=== PATIENT | female | born 1965 | race Caucasian/White ===

== ENCOUNTER 2016-11-27 18:34 | Inpatient (IN) | payer MEDICARE ==
[2016-11-27] MEDS ORDERED: DUONEB 0.5-3 MG/3 ml Neb IH ONE ×3 (18:46→22:42)
--- NOTE | 2016-11-27 18:53 | ERPHSYRPT ---
- History of Present Illness Source: patient, EMS Exam Limitations: clinical condition Patient Subjective Stated Complaint: pt co increase sob for about a week, with cought, is on home o2 at 2l nc, uses nebulizer at home. Triage Nursing Assessment: coughing up thick white sputum. no fever,wheezes throughtout Timing/Duration: week(s) (1) Activities at Onset: rest Severity of Dyspnea-Max: severe Severity of Dyspnea-Current: severe Possible Cause: frequent episodes Modifying Factors: Improves With: activity Associated Symptoms: productive cough International travel in last 2 weeks: No Hx Tetanus, Diphtheria Vaccination/Date Given: Yes Hx Influenza Vaccination/Date Given: Yes Hx Pneumococcal Vaccination/Date Given: Yes Immunizations Up to Date: Yes <MARIOLA GALINDO - Last Filed: 11/27/16 18:48> <ANTOINE TEMPLE - Last Filed: 11/27/16 20:19> - History of Present Illness Time Seen by Provider: 11/27/16 18:35 Physician History: She smokes heavily and states she will quit now. No change or missed meds. Not out of her O2 source. (MARIOLA GALINDO) Allergies/Adverse Reactions: morphine Allergy (Intermediate, Verified 11/27/16 18:41) Hives tramadol Allergy (Verified 11/27/16 18:41) Home Medications: Bupropion HCl [Bupropion HCl Sr] 150 mg PO DAILY 02/01/16 [History] Levetiracetam 500 mg PO BID 02/01/16 [History] Levothyroxine Sodium 25 Mcg [Synthroid 25 Mcg] 25 mcg PO DAILY 02/01/16 [ History] Naproxen 500 mg PO BID 02/01/16 [History] Omeprazole 40 mg PO TID 02/01/16 [History] Alprazolam 1 mg [Xanax 1 mg] 1 mg PO Q6HPRN PRN 02/09/16 [History] Albuterol 2.5 mg/3 ml Neb [Proventil 2.5 mg/3 ml Neb] 1 neb IH Q4H [History] Albuterol 8 gm Mdi Hfa [Ventolin Hfa MDI] 2 puffs IH Q4HPRN PRN 07/06/16 [ History] Alprazolam 1 mg [Xanax 1 mg] 2 mg PO HS 07/06/16 [History] - Review of Systems Constitutional: No Symptoms Eyes: No Symptoms Ears, Nose, & Throat: No Symptoms Respiratory: Cough, Dyspnea, Dyspnea on Exertion ([place]), Wheezing Cardiac: No Symptoms Abdominal/Gastrointestinal: No Symptoms Musculoskeletal: No Symptoms Skin: No Symptoms Neurological: No Symptoms Psychological: No Symptoms Endocrine: No Symptoms Hematologic/Lymphatic: No Symptoms Immunological/Allergic: No Symptoms <GALINDOMARIOLA DONELL - Last Filed: 11/27/16 18:48> - Past Medical History Pertinent Past Medical History: Yes Neurological History: Seizures ENT History: No Pertinent History Cardiac History: High Cholesterol Respiratory History: Bronchitis, COPD Endocrine Medical History: No Pertinent History Musculoskeletal History: Arthritis GI Medical History: Gallbladder Disease, Hemorrhoids History: No Pertinent History Psycho-Social History: Anxiety, Depression, Panic Disorder Female Reproductive Disorders: Cervical Cancer, Vaginal Cancer Other Medical History: test + for tb on skin test chest xray are neg.manic depression - Past Surgical History Past Surgical History: Yes Neuro Surgical History: No Pertinent History Cardiac: No Pertinent History Respiratory: No Pertinent History Gastrointestinal: Cholecystectomy Genitourinary: No Pertinent History Musculoskeletal: Orthopedic Surgery Female Surgical History: Hysterectomy, Other Other Surgical History: partial vulvectomy, dand c's , rt hand surgery, epidural for back paincerviacl cancer-removed around cervix,rt knee surgery - Social History Smoking Status: Current every day smoker How long have you smoked: 30 years Exposure to second hand smoke: Yes Drug Use: none Patient Lives Alone: Yes - Female History Hx Last Menstrual Period: hyster <MARIOLA GALINDO - Last Filed: 11/27/16 18:48> - Physical Exam General Appearance: moderate distress, anxiety Eye Exam: PERRL/EOMI, eyes nml inspection Ears, Nose, Throat Exam: normal ENT inspection, normal pharynx Neck Exam: normal inspection, non-tender, supple, full range of motion Respiratory Exam: respiratory distress, airway intact, accessory muscle use, prolonged expirations, wheezing (expiratory throughout) Cardiovascular/Chest Exam: normal heart sounds, regular rate/rhythm, normal peripheral pulses Abdominal/Gastrointestinal Exam: soft, normal bowel sounds Extremity Exam: non-tender, normal range of motion, normal inspection Neurologic Exam: alert, oriented x 3, cooperative Skin Exam: warm, dry, cyanosis (mild dusky appearance) SpO2 Interpretation: hypoxic SpO2: 96 Oxygen Delivery: Nasal Cannula (2 lpm) <MARIOLA GALINDO - Last Filed: 11/27/16 18:48> - Course Nursing assessment & vital signs reviewed: Yes <MARIOLA GALINDO - Last Filed: 11/27/16 18:48> - Course EKG Interpreted by Me: RATE (81), Sinus Rhythm, Left Waldo Deviation, Non- specific ST Changes, Other (RVH) - Radiology Exams cxr X-ray Interpretation: Reviewed by me (COPD, ), No Pneumonia, No Pneumothorax <ANTOINE TEMPLE - Last Filed: 11/27/16 20:19> Ordered Tests: Active Orders 24 hr Category Date Time Status Clean Catch Urine Specimen STAT Care 11/27/16 18:46 Active EKG-ER Only STAT Care 11/27/16 18:46 Active IV Insertion STAT Care 11/27/16 18:46 Active Oxygen-ED Only NASAL CANNULA 2 lpm Care 11/27/16 18:46 Active Pulse Oximetry (ED) STAT Care 11/27/16 18:46 Active CHEST 1 VIEW (PORTABLE) Stat Exams 11/27/16 18:46 Taken ARTERIAL BLOOD GASES Urgent Lab 11/27/16 19:10 Completed BLOOD CULTURE Stat Lab 11/27/16 19:10 Received CBC W DIFF Stat Lab 11/27/16 19:10 Completed CMP Stat Lab 11/27/16 19:10 Completed Lactic Acid Urgent Lab 11/27/16 19:45 Completed Manual Differential NC Stat Lab 11/27/16 19:10 Completed NT PRO BNP Stat Lab 11/27/16 19:10 Completed TROPONIN Stat Lab 11/27/16 19:10 Completed UA Stat Lab 11/27/16 18:46 Ordered Respiratory Nebulizer STAT RT 11/27/16 18:48 Completed Respiratory Nebulizer STAT RT 11/27/16 19:46 Completed Medication Summary Generic Name Dose Route Start Last Admin Trade Name Freq PRN Reason Stop Dose Admin Azithromycin 250 mls @ 125 mls/hr 11/27/16 19:45 11/27/16 20:01 Zithromax 500 Mg/ 250 Ml Nacl Premix IV 11/27/16 21:44 125 mls/hr STAT ONE Administration Discontinued Medications Generic Name Dose Route Start Last Admin Trade Name Ute SAUCEDON Reason Stop Dose Admin Albuterol Sulfate 2.5 mg 11/27/16 19:45 11/27/16 20:04 Proventil 2.5 Mg/3 Ml Neb IH 11/27/16 19:46 2.5 mg STAT ONE Administration Albuterol Sulfate Confirm 11/27/16 19:55 Proventil 2.5 Mg/3 Ml Neb Administered 11/27/16 19:56 Dose 2.5 mg IH .STK-MED ONE Albuterol/Ipratropium 3 ml 11/27/16 18:46 11/27/16 19:01 Duoneb 0.5-3 Mg/3 Ml Neb IH 11/27/16 18:47 3 ml STAT ONE Administration Albuterol/Ipratropium Confirm 11/27/16 19:00 Duoneb 0.5-3 Mg/3 Ml Neb Administered 11/27/16 19:01 Dose 3 ml IH .STK-MED ONE Hydroxyzine HCl 25 mg 11/27/16 19:45 11/27/16 20:00 Atarax 25 Mg PO 11/27/16 19:46 25 mg STAT ONE Administration Hydroxyzine HCl Confirm 11/27/16 19:49 Atarax 25 Mg Administered 11/27/16 19:50 Dose 25 mg .ROUTE .STK-MED ONE Ceftriaxone Sodium/Dextrose 50 mls @ 100 mls/hr 11/27/16 19:45 11/27/16 20:01 Rocephin 1 Gm-D5w 50 Ml Bag IV 11/27/16 20:14 100 mls/hr STAT ONE Administration Azithromycin Confirm 11/27/16 19:49 Zithromax 500 Mg/ 250 Ml Nacl Premix Administered 11/27/16 19:50 Dose 250 mls @ ud IV .STK-MED ONE Ceftriaxone Sodium/Dextrose Confirm 11/27/16 19:49 Rocephin 1 Gm-D5w 50 Ml Bag Administered 11/27/16 19:50 Dose 50 mls @ ud IV .STK-MED ONE Methylprednisolone Sodium Succinate 125 mg 11/27/16 19:45 11/27/16 20:01 Solu-Medrol 125 Mg IV 11/27/16 19:46 125 mg STAT ONE Administration Methylprednisolone Sodium Succinate Confirm 11/27/16 19:49 Solu-Medrol 125 Mg Administered 11/27/16 19:50 Dose 125 mg .ROUTE .STK-MED ONE Lab/Rad Data: Laboratory Result Diagrams 11/27/16 19:10 11/27/16 19:10 Laboratory Results 11/27/16 11/27/16 11/27/16 Range/Units 19:45 19:10 19:10 WBC (4.0-10.5) K/mm3 RBC (4.1-5.4) M/mm3 Hgb (12.0-16.0) gm/dl Hct (35-47) % MCV (78-100) fl MCH (26-32) pg MCHC (32-36) g/dl RDW (11.5-14.0) % Plt Count (150-450) K/mm3 MPV (6-9.5) fl Segmented Neutrophils (36.0-66.0) % Band Neutrophils (0.0-2.0) % Lymphocytes (Manual) (24-44) % Monocytes (Manual) (0.0-12.0) % Eosinophils (Manual) (0.00-3.0) % Differential Comment Platelet Estimate (NORMAL) Anisocytosis Puncture Site rb pCO2 55 H (35-45) mmHg pO2 105 H (75-100) mmHg Base Excess 11.9 H (-2.0-2.0) O2 Saturation 93.6 L (94-100) g/dF ABG pH 7.45 (7.35-7.45) ABG HCO3 38.2 H* (22-28) ABG O2 Sat (Measured) 98.6 (95-100) % Shawn Test na A-a Gradient 83 a/A Ratio 0.56 Hemoglobin 14.1 Carboxyhemoglobin 4.1 (0.0-6.9) % THgb Methemoglobin 1.0 L (1.4-1.5) % Potassium 3.2 L 3.3 L (3.5-5.1) Temperature 37.0 C POC O2 Flow Rate 36 % Sodium 140 (136-145) mEq/L Chloride 98 (98-107) mEq/L Carbon Dioxide 38.4 H (21-32) mEq/L Anion Gap 7.3 (5-15) MEQ/L BUN 6 L (9-20) mg/dL Creatinine 0.85 (0.55-1.30) mg/dl Estimated GFR > 60 ML/MIN Glucose 85 (70-110) MG/DL Lactic Acid 1.3 (0.4-2.0) Calcium 8.7 (8.5-10.1) mg/dL Total Bilirubin 0.4 (0.2-1.0) mg/dL AST 17 (15-37) U/L ALT 36 (12-78) U/L Alkaline Phosphatase 80 (46-116) U/L Troponin I < 0.017 (0.000-0.056) ng/ml NT-Pro-B Natriuret Pep 110 (0-125) pg/ml Serum Total Protein 6.5 (6.4-8.2) gm/dL Albumin 3.8 (3.4-5.0) g/dL 11/27/16 Range/Units 19:10 WBC 7.7 (4.0-10.5) K/mm3 RBC 4.65 (4.1-5.4) M/mm3 Hgb 13.8 (12.0-16.0) gm/dl Hct 43.8 (35-47) % MCV 94.2 (78-100) fl MCH 29.7 (26-32) pg MCHC 31.5 L (32-36) g/dl RDW 12.3 (11.5-14.0) % Plt Count 286 (150-450) K/mm3 MPV 8.9 (6-9.5) fl Segmented Neutrophils 62 (36.0-66.0) % Band Neutrophils 1 (0.0-2.0) % Lymphocytes (Manual) 25 (24-44) % Monocytes (Manual) 7 (0.0-12.0) % Eosinophils (Manual) 5 H (0.00-3.0) % Differential Comment ABNORMAL Platelet Estimate NORMAL (NORMAL) Anisocytosis 1+ Puncture Site pCO2 (35-45) mmHg pO2 (75-100) mmHg Base Excess (-2.0-2.0) O2 Saturation (94-100) g/dF ABG pH (7.35-7.45) ABG HCO3 (22-28) ABG O2 Sat (Measured) (95-100) % Shawn Test A-a Gradient a/A Ratio Hemoglobin Carboxyhemoglobin (0.0-6.9) % THgb Methemoglobin (1.4-1.5) % Potassium (3.5-5.1) Temperature C POC O2 Flow Rate % Sodium (136-145) mEq/L Chloride (98-107) mEq/L Carbon Dioxide (21-32) mEq/L Anion Gap (5-15) MEQ/L BUN (9-20) mg/dL Creatinine (0.55-1.30) mg/dl Estimated GFR ML/MIN Glucose (70-110) MG/DL Lactic Acid (0.4-2.0) Calcium (8.5-10.1) mg/dL Total Bilirubin (0.2-1.0) mg/dL AST (15-37) U/L ALT (12-78) U/L Alkaline Phosphatase (46-116) U/L Troponin I (0.000-0.056) ng/ml NT-Pro-B Natriuret Pep (0-125) pg/ml Serum Total Protein (6.4-8.2) gm/dL Albumin (3.4-5.0) g/dL <MARIOLA GALINDO - Last Filed: 11/27/16 18:48> - Progress Discussed with : Dot Will see patient in: hospital (observation) Counseled pt/family regarding: lab results, diagnosis, need for follow-up, rad results <ANTOINE TEMPLE - Last Filed: 11/27/16 20:19> - Progress Progress Note: 11/27/16 20:[address] Tomi Hernández was initially seen per Dr Galindo. She has hx COPD on home nebs and home oxygen. She has finished a recent round of steroids. No recent abtx. She is coughing discolored sputum. No fever. PE: Wheezing persists despite nebs. Dyspneic walking to . Called Dr Tomi Hernández. Will place in obs for IV steroids, abtx, COPD treatment. (ANTOINE TEMPLE) <MARIOLA GALINDO - Last Filed: 11/27/16 18:48> - Departure Time of Disposition: 20:19 Departure Disposition: Observation Critical Care Time: No <ANTOINE TEMPLE - Last Filed: 11/27/16 20:19> - Departure Clinical Impression: Acute exacerbation of COPD with asthma Condition: Fair
[2016-11-27 19:14] LABS: Mean Cell Volume 94.2 fl (78-100); Mean Corpuscular Hemoglobin 29.7 pg (26-32); Mean Platelet Volume 8.9 fl (6-9.5); Platelet Count 286 K/mm3 (150-450); Red Blood Count 4.65 M/mm3 (4.1-5.4); Red Cell Distribution Width 12.3 % (11.5-14.0); White Blood Count 7.7 K/mm3 (4.0-10.5)
[2016-11-27 19:16] LABS: A-aADO2 83; ARTERIAL BLD GAS O2 SATURATION 98.6 % (95-100); ARTERIAL BLOOD GAS BASE EXCESS 11.9 (-2.0-2.0); ARTERIAL BLOOD GAS FIO2 36 %; ARTERIAL BLOOD GAS PO2 105 mmHg (75-100); ARTERIAL BLOOD GAS pH 7.45 (7.35-7.45)
[2016-11-27 19:42] LABS: ALBUMIN 3.8 g/dL (3.4-5.0); ALKALINE PHOSPHATASE 80 U/L (46-116); ANION GAP 7.3 MEQ/L (5-15); BILIRUBIN,TOTAL 0.4 mg/dL (0.2-1.0); BLOOD UREA NITROGEN 6 mg/dL (9-20); CHLORIDE 98 mEq/L (98-107); Carbon Dioxide 38.4 mEq/L (21-32); Glucose 85 MG/DL (70-110); Potassium 3.3 mEq/L (3.5-5.1); SGOT/AST 17 U/L (15-37); SGPT/ALT 36 U/L (12-78); SODIUM 140 mEq/L (136-145); Total Protein 6.5 gm/dL (6.4-8.2)
[2016-11-27] MEDS ORDERED: solu-MEDROL 125 MG IV ONE (19:45)
[2016-11-27] MEDS ORDERED: ROCEPHIN 1 Gm-D5w 50 ml Bag** 50 ML IV ONE ×2 (19:45→19:49)
[2016-11-27] MEDS ORDERED: Zithromax 500 MG/ 250 ML NaCl Premix 250 ML IV ONE ×2 (19:45→19:49)
[2016-11-27] MEDS ORDERED: ATARAX 25 MG PO ONE (19:45)
[2016-11-27] MEDS ORDERED: PROVENTIL 2.5 MG/3 ML NEB IH ONE ×2 (19:45→19:55)
[2016-11-27 19:46] LABS: TROPONIN < 0.017 ng/ml (0.000-0.056)
[2016-11-27] MEDS ORDERED: solu-MEDROL 125 MG ONE (19:49)
[2016-11-27] MEDS ORDERED: ATARAX 25 MG ONE (19:49)
[2016-11-27 20:05] LABS: BAND 1 % (0.0-2.0); Eosinophil 5 % (0.00-3.0); Total Cells Counted 100
[2016-11-27 20:09] LABS: ANISOCYTOSIS 1+
[2016-11-27 20:10] LABS: Platelet Estimate NORMAL (NORMAL)
[2016-11-27 20:30] LABS: COMPLETE URINE MICROSCOPIC? YES; Collection Type CLEAN CATCH; Ph 5.5 (5-6)
[2016-11-27 20:31] LABS: Bacteria MANY /HPF (NEGATIVE); Epithelial Cells RARE /HPF (FEW)
[2016-11-27] MEDS: DUONEB 0.5-3 MG/3 ml Neb IH SCH (23:02)
[2016-11-28] MEDS ORDERED: NORCO 5/325 MG PO PRN (00:07)
[2016-11-28] MEDS: Pepcid 20 MG VIAL IV SCH ×3 (00:29→22:00)
[2016-11-28] MEDS: solu-MEDROL 125 MG IV SCH ×4 (02:27→18:02)
[2016-11-28] MEDS: DUONEB 0.5-3 MG/3 ml Neb IH SCH ×6 (03:06→23:18)
--- NOTE | 2016-11-28 07:57 | PCM.HP ---
History of Present Illness - Chief Complaint Chief Complaint: Acut exacerbation COPD w/ Asthma Date: 11/28/16 History of Present Illness: is a 51 year old female. with severe copd chronic respiratory failure who was having an exacerbation she was trying to treat at home for the last 2 weeks with 20 mg of prednisone followed by 10 mg of prednisone. The day of presentation she was wheezing badly and coughed up thick green sputum that got her choked and unable to catch her breath and scared her. No hemoptysis no fever nause vomiting or diarrhea. Medications & Allergies Home Medications: Home Medication List Bupropion HCl [Bupropion HCl Sr] 150 mg PO DAILY 02/01/16 [History Confirmed 01/12] Levetiracetam 500 mg PO BID 02/01/16 [History Confirmed 11/27/16] Levothyroxine Sodium 25 Mcg [Synthroid 25 Mcg] 25 mcg PO DAILY 02/01/16 [ History Confirmed 11/27/16] Naproxen 500 mg PO BID 02/01/16 [History Confirmed 11/27/16] Omeprazole 40 mg PO TID 02/01/16 [History Confirmed 11/27/16] Alprazolam 1 mg [Xanax 1 mg] 1 mg PO Q6HPRN PRN 02/09/16 [History Confirmed 11/27/16] Albuterol 2.5 mg/3 ml Neb [Proventil 2.5 mg/3 ml Neb] 1 neb IH Q4H [History Confirmed 11/27/16] Albuterol 8 gm Mdi Hfa [Ventolin Hfa MDI] 2 puffs IH Q4HPRN PRN 07/06/16 [ History Confirmed 11/27/16] Alprazolam 1 mg [Xanax 1 mg] 2 mg PO HS 07/06/16 [History Confirmed ] Hydrocodone Bit/Acetaminophen [Hydrocodon-Acetaminophen 5-325] 1 each PO Q6HPRN PRN #0 tablet 07/07/16 [Rx Confirmed 11/27/16] Ondansetron [Zofran Odt] 4 mg PO Q6H #20 tab.rapdis 07/31/16 [Rx Confirmed 11/27] Allergies/Adverse Reactions: Allergies Allergy/AdvReac Type Severity Reaction Status Date / Time morphine Allergy Intermediate Hives Verified 11/27/16 18:41 tramadol Allergy Verified 11/27/16 18:41 - Past Medical History Past Medical History: Yes Neurological History: Seizures ENT History: No Pertinent History Cardiac History: Congestive Heart Failure, High Cholesterol Respiratory History: Bronchitis, COPD Endocrine Medical History: No Pertinent History Musculoskelatal History: Arthritis GI Medical History: Gallbladder Disease, Hemorrhoids History: No Pertinent History Pyscho-Social History: Anxiety, Depression, Panic Disorder Reproductive Disorders: Cervical Cancer, Vaginal Cancer Comment: test + for tb on skin test chest xray are neg.manic depression - Female History Hx Last Menstrual Period: hyster Are you now?: No - Past Surgical History Past Surgical History: Yes Neuro Surgical History: No Pertinent History Cardiac History: No Pertinent History Respiratory Surgery: No Pertinent History GI Surgical History: Cholecystectomy Genitourinary Surgical Hx: No Pertinent History Musculskeletal Surgical Hx: Orthopedic Surgery Female Surgical History: Hysterectomy, Other Other Surgical History: partial vulvectomy, dand c's , rt hand surgery, epidural for back pain cerviacl cancer-removed around cervix,rt knee surgery - Social History Smoking Status: Current every day smoker How long have you smoked: 30 years Exposure to second hand smoke: Yes Alcohol: None Drug Use: none - Physical Exam Vital Signs: Vital Signs - 24 hr Temp Pulse Resp BP BP Pulse Ox 11/28/16 07:07 97.8 F 83 24 116/64 94 L 11/28/16 07:00 78 18 94 L 11/28/16 06:00 21 11/28/16 04:00 97.4 F 83 21 98/56 96 11/28/16 03:00 76 18 96 11/28/16 02:00 20 11/28/16 00:00 97.9 F 78 16 115/66 96 11/27/16 23:25 78 16 96 11/27/16 22:00 20 11/27/16 21:24 97.9 F 82 22 115/66 97 11/27/16 20:07 80 18 97 11/27/16 20:05 80 20 107/77 98 11/27/16 19:30 84 16 124/72 99 11/27/16 19:17 93 H 20 98 11/27/16 18:57 96 11/27/16 18:52 96 11/27/16 18:40 97.2 F 78 24 118/68 96 11/27/16 18:35 24 97 Oxygen-Last 24 hours O2 Percentage 3 Liters = 32% O2 Percentage 2 Liters = 28% O2 Percentage 2 Liters = 28% O2 Percentage 2 Liters = 28% General Appearance: no apparent distress, alert Neurologic Exam: alert, oriented x 3, cooperative, normal mood/affect, nml cerebellar function, nml station & gait, sensation nml, No motor deficits Eye Exam: PERRL/EOMI, eyes nml inspection Ears, Nose, Throat Exam: normal ENT inspection, TMs normal, pharynx normal, moist mucous membranes Neck Exam: normal inspection, non-tender, supple, full range of motion Respiratory Exam: diminished breath sounds, wheezing, No respiratory distress Cardiovascular Exam: regular rate/rhythm, normal heart sounds, normal peripheral pulses Gastrointestinal/Abdomen Exam: soft, normal bowel sounds, No tenderness, No mass Back Exam: normal inspection, normal range of motion, No CVA tenderness, No vertebral tenderness Extremity Exam: normal inspection, normal range of motion, pelvis stable Skin Exam: normal color, warm, dry, No rash Lymphatic Exam: No adenopathy Results - Other Procedures and Tests Respiratory Therapy 11/27/16 23:00 Respiratory Nebulizer Q4H Assessment/Plan (1) COPD with exacerbation Current Visit: Yes Status: Acute Assessment & Plan: continue solumedrol and azithromycin monitor for improvement continue O2 curerntly at 3 L nc O2 continue nebs Code(s): J44.1 - CHRONIC OBSTRUCTIVE PULMONARY DISEASE W (ACUTE) EXACERBATION (2) Anxiety Current Visit: Yes Status: Chronic Code(s): F41.9 - ANXIETY DISORDER, UNSPECIFIED
--- NOTE | 2016-11-28 08:29 | XRAY ---
Indication: Short of breath. Comparison: July 06, 2016 Portable chest again hyperinflated and clear. Heart is not enlarged. Bony thorax intact. No new/acute findings. Impression: Stable nonacute hyperinflated chest.
[2016-11-28] MEDS ORDERED: ZOFRAN ODT 4 MG PO PRN (08:45)
[2016-11-28] MEDS ORDERED: PROVENTIL 2.5 MG/3 ML NEB IH SCH (09:00)
[2016-11-28] MEDS: SYNTHROID 25 MCG PO SCH (09:04)
[2016-11-28] MEDS: Wellbutrin SR 150 MG PO SCH ×2 (09:04→21:59)
[2016-11-28] MEDS: Protonix 40MG Tablet PO SCH ×2 (09:04→21:58)
[2016-11-28] MEDS: KEPPRA 500 MG PO SCH ×2 (09:04→21:58)
[2016-11-28] MEDS: ENOXAPARIN SODIUM SQ SCH (09:04)
[2016-11-28] MEDS: NORCO 5/325 MG PO PRN ×3 (09:08→21:59)
[2016-11-28] MEDS: XANAX 1 MG PO PRN ×3 (09:08→22:00)
[2016-11-28] MEDS: Sodium Chloride 0.9% 10 ML FLUSH Syringe IV PRN ×2 (12:00→18:02)
[2016-11-28] MEDS: Zithromax 500 MG/ 250 ML NaCl Premix 250 ML IV SCH (20:42)
[2016-11-28] MEDS: Sodium Chloride 0.9% 10 ML FLUSH Syringe IV SCH (22:45)
[2016-11-28] MEDS: ROCEPHIN 1 Gm-D5w 50 ml Bag** 50 ML IV SCH (22:45)
[2016-11-29] MEDS: solu-MEDROL 125 MG IV SCH ×4 (00:23→21:58)
[2016-11-29] MEDS: Sodium Chloride 0.9% 10 ML FLUSH Syringe IV SCH ×3 (05:40→21:59)
[2016-11-29] MEDS: DUONEB 0.5-3 MG/3 ml Neb IH SCH ×6 (05:50→23:32)
[2016-11-29] MEDS: NORCO 5/325 MG PO PRN ×2 (08:32→17:47)
[2016-11-29] MEDS: XANAX 1 MG PO PRN ×2 (08:33→17:47)
[2016-11-29] MEDS: Protonix 40MG Tablet PO SCH ×2 (10:23→21:58)
[2016-11-29] MEDS: SYNTHROID 25 MCG PO SCH (10:24)
[2016-11-29] MEDS: ENOXAPARIN SODIUM SQ SCH (10:24)
[2016-11-29] MEDS: KEPPRA 500 MG PO SCH ×2 (10:24→21:58)
[2016-11-29] MEDS: Pepcid 20 MG VIAL IV SCH ×2 (10:24→21:58)
[2016-11-29] MEDS: Wellbutrin SR 150 MG PO SCH ×2 (10:25→21:58)
[2016-11-29] MEDS ORDERED: Colace 100 MG PO PRN ×2 (11:40→11:42)
[2016-11-29] MEDS ORDERED: MOTRIN 400 MG PO PRN (11:40)
--- NOTE | 2016-11-29 20:37 | PCM.NOTE ---
Date and Time: 11/29/162031 Subjective Assessment: she was initiailly feeling much better yesterrday but this am having more troulbe breathing and very thick mucous. She is very worried as the last time she felt like this she went home and returned for a 2 week hosptial stay. she is tolerating po now Objective Exam General Appearance: no apparent distress Neurologic Exam: alert, oriented x 3 Skin Exam: warm, dry Eye Exam: No pale conjunctivae Ears, Nose, Throat Exam: moist mucous membranes Neck Exam: non-tender, supple Respiratory Exam: accessory muscle use, prolonged expirations, wheezing Cardiovascular Exam: regular rate/rhythm, normal heart sounds Gastrointestinal/Abdomen Exam: soft, normal bowel sounds, No tenderness Extremity Exam: No calf tenderness, No pedal edema OBJECTIVE DATA Vital Signs: Vital Signs - 24 hr Temp Pulse Resp BP Pulse Ox 11/29/16 19:49 97.9 F 93 H 18 124/58 98 11/29/16 19:01 98 H 18 96 11/29/16 18:00 18 11/29/16 16:00 97.6 F 92 H 18 118/64 96 11/29/16 14:53 86 20 98 11/29/16 13:41 20 11/29/16 11:23 97.8 F 95 H 20 118/63 97 11/29/16 10:42 91 H 20 98 11/29/16 08:32 98.2 F 11/29/16 07:12 98.2 F 95 H 16 122/65 98 11/29/16 06:57 90 20 97 11/29/16 06:00 17 11/29/16 04:00 98.1 F 97 H 17 130/65 94 L 11/29/16 02:00 18 11/29/16 00:00 98.2 F 93 H 18 114/65 100 11/28/16 23:00 94 H 18 94 L 11/28/16 22:00 18 Oxygen-Last 24 hours O2 Percentage 2 Liters = 28% O2 Percentage 2 Liters = 28% Pain Assessment - Last Documented Pain Intensity 3 Pain Scale Used 0-10 Pain Scale Intake and Output: Intake & Output 11/27/16 11/28/16 11/29/16 11/30/16 11:59 11:59 11:59 11:59 Intake Total 480 720 Balance 480 720 Multi-Disciplinary Progress Notes: Multi-Disciplinary Progress Notes 11/29/16 13:14 Case Management Note by Do Jain AN IMPORTANT MESSAGE GIVEN TO PT, SIGNED AND COPY TO PT AND COPY TO CHART. Initialized on 11/29/16 13:14 - END OF NOTE 11/29/16 10:13 Case Management Note by Do Jain SPOKE WITH PT RE DISCHARGE NEEDS. PT IS INPROVING. STATES SHE WILL LET ME KNOW LATER IF SHE WANT HHC. BUT AT THIS TIME SHE DONT THINK SHE WILL HAS O2 AT HOME. WILL CONT TO MONITOR. Initialized on 11/29/16 10:13 - END OF NOTE 11/29/16 10:13 Case Management Note by Do Jain Talked with YI BARAHONA regarding needs at time of discharge. Patient reports residing at []. Patient reports plans on returning to [] upon discharge. Discharge questionaire reviewed with patient. Important message from Medicare signed. Patient verbalized understanding. Forms placed on chart. Patient meets Acute Adult Inpatient Criteria. Will continue to follow for all Discharge needs. Initialized on 11/29/16 10:13 - END OF NOTE Assessment/Plan (1) COPD with exacerbation Current Visit: Yes Status: Acute Assessment & Plan: initial improvement and worsening again will cut back on the steroids to 60 bid use the azithromycin still countinue the nebs and oxygen. Code(s): J44.1 - CHRONIC OBSTRUCTIVE PULMONARY DISEASE W (ACUTE) EXACERBATION (2) Anxiety Current Visit: Yes Status: Chronic Code(s): F41.9 - ANXIETY DISORDER, UNSPECIFIED
[2016-11-29] MEDS: Zithromax 500 MG/ 250 ML NaCl Premix 250 ML IV SCH (21:03)
[2016-11-29] MEDS: ROCEPHIN 1 Gm-D5w 50 ml Bag** 50 ML IV SCH (23:18)
[2016-11-30] MEDS: Sodium Chloride 0.9% 10 ML FLUSH Syringe IV SCH ×3 (05:17→21:36)
[2016-11-30] MEDS: DUONEB 0.5-3 MG/3 ml Neb IH SCH ×6 (06:01→22:47)
[2016-11-30] MEDS ORDERED: Spiriva 18 Mcg/Cap Inhaler IH ONE (06:51)
[2016-11-30] MEDS: Spiriva 18 Mcg/Cap Inhaler IH SCH (06:55)
--- NOTE | 2016-11-30 09:05 | PCM.NOTE ---
Date and Time: 11/30/16902 Subjective Assessment: still feeling weak and prolonged coughing spells with shortness of breath associated and causing panic feeling. no vomiting no fever. no sputum production now. very sob with exertion Objective Exam General Appearance: no apparent distress, anxiety Neurologic Exam: alert, oriented x 3, cooperative Skin Exam: warm, dry Eye Exam: pale conjunctivae Ears, Nose, Throat Exam: dry mucous membranes Neck Exam: non-tender, supple Respiratory Exam: diminished breath sounds, accessory muscle use, wheezing Cardiovascular Exam: regular rate/rhythm, normal heart sounds Gastrointestinal/Abdomen Exam: soft, normal bowel sounds, No tenderness OBJECTIVE DATA Vital Signs: Vital Signs - 24 hr Temp Pulse Resp BP Pulse Ox 11/30/16 07:56 98 F 89 20 115/69 97 11/30/16 06:56 86 18 99 11/30/16 06:00 18 11/30/16 04:00 97.9 F 87 18 110/62 98 11/30/16 02:00 17 11/30/16 00:00 97.7 F 88 17 96/50 98 11/29/16 23:34 86 18 97 11/29/16 22:00 18 11/29/16 19:49 97.9 F 93 H 18 124/58 98 11/29/16 19:01 98 H 18 96 11/29/16 18:00 18 11/29/16 16:00 97.6 F 92 H 18 118/64 96 11/29/16 14:53 86 20 98 11/29/16 13:41 20 11/29/16 11:23 97.8 F 95 H 20 118/63 97 11/29/16 10:42 91 H 20 98 Oxygen-Last 24 hours O2 Percentage 2 Liters = 28% O2 Percentage 2 Liters = 28% O2 Percentage 2 Liters = 28% O2 Percentage 2 Liters = 28% Pain Assessment - Last Documented Pain Intensity 2 Pain Scale Used 0-10 Pain Scale Intake and Output: Intake & Output 11/27/16 11/28/16 11/29/16 11/30/16 11:59 11:59 11:59 11:59 Intake Total 480 2220 Balance 480 2220 Weight 59.829 kg Multi-Disciplinary Progress Notes: Multi-Disciplinary Progress Notes 11/29/16 13:14 Case Management Note by Do Jain AN IMPORTANT MESSAGE GIVEN TO PT, SIGNED AND COPY TO PT AND COPY TO CHART. Initialized on 11/29/16 13:14 - END OF NOTE 11/29/16 10:13 Case Management Note by Do Jain SPOKE WITH PT RE DISCHARGE NEEDS. PT IS INPROVING. STATES SHE WILL LET ME KNOW LATER IF SHE WANT HHC. BUT AT THIS TIME SHE DONT THINK SHE WILL HAS O2 AT HOME. WILL CONT TO MONITOR. Initialized on 11/29/16 10:13 - END OF NOTE 11/29/16 10:13 Case Management Note by Do Jain Talked with YI ABRAHONA regarding needs at time of discharge. Patient reports residing at []. Patient reports plans on returning to [] upon discharge. Discharge questionaire reviewed with patient. Important message from Medicare signed. Patient verbalized understanding. Forms placed on chart. Patient meets Acute Adult Inpatient Criteria. Will continue to follow for all Discharge needs. Initialized on 11/29/16 10:13 - END OF NOTE Assessment/Plan (1) COPD with exacerbation Current Visit: Yes Status: Acute Assessment & Plan: slow improvement will cut back a little more on her iv steroids continue treatments change abx to po and hope for continued improvement try to increase activity today and hope for if continues to show slow signs of improvement home tomorrow. Code(s): J44.1 - CHRONIC OBSTRUCTIVE PULMONARY DISEASE W (ACUTE) EXACERBATION (2) Anxiety Current Visit: Yes Status: Chronic Code(s): F41.9 - ANXIETY DISORDER, UNSPECIFIED
[2016-11-30] MEDS: Wellbutrin SR 150 MG PO SCH ×2 (09:28→21:34)
[2016-11-30] MEDS: Protonix 40MG Tablet PO SCH ×2 (09:28→21:33)
[2016-11-30] MEDS: Pepcid 20 MG VIAL IV SCH ×2 (09:29→21:36)
[2016-11-30] MEDS: SYNTHROID 25 MCG PO SCH (09:29)
[2016-11-30] MEDS: KEPPRA 500 MG PO SCH ×2 (09:29→21:35)
[2016-11-30] MEDS: ENOXAPARIN SODIUM SQ SCH (09:30)
[2016-11-30] MEDS: solu-MEDROL 40 MG IV SCH ×2 (09:34→21:32)
[2016-11-30] MEDS: XANAX 1 MG PO PRN ×4 (09:34→22:35)
[2016-11-30] MEDS: NORCO 5/325 MG PO PRN ×4 (09:34→22:35)
[2016-11-30] MEDS: CEPACOL SORE THROAT LOZENGE PO PRN ×2 (09:39→18:29)
[2016-11-30] MEDS: Zithromax 250 MG TABLET PO SCH (21:36)
[2016-12-01] MEDS: DUONEB 0.5-3 MG/3 ml Neb IH SCH ×3 (03:06→10:56)
[2016-12-01] MEDS: Spiriva 18 Mcg/Cap Inhaler IH SCH (07:13)
--- NOTE | 2016-12-01 08:16 | PCM.DCORD ---
- Discharge Discharge Date: 12/01/16 Disposition: Home, Self-Care Condition: Stable Prescriptions: Nystatin 60 ml [Nystatin SUSPENSION 60 ML] 5 ml PO QID #120 ml Prednisone 10 mg PO DAILY #31 tablet Azithromycin 250 mg [Zithromax 250 MG TABLET] 250 mg PO DAILY #3 tablet Medications: Home Medications Levetiracetam 500 mg PO BID 02/01/16 [Confirmed 11/27/16] Levothyroxine Sodium 25 Mcg [Synthroid 25 Mcg] 25 mcg PO DAILY 02/01/16 [ Confirmed 11/27/16] Naproxen 500 mg PO BID 02/01/16 [Confirmed 11/27/16] Omeprazole 40 mg PO TID 02/01/16 [Confirmed 11/27/16] Alprazolam 1 mg [Xanax 1 mg] 1 mg PO Q6HPRN PRN 02/09/16 [Confirmed ] Albuterol 2.5 mg/3 ml Neb [Proventil 2.5 mg/3 ml Neb] 1 neb IH Q4H [Confirmed 11/27/16] Albuterol 8 gm Mdi Hfa [Ventolin Hfa MDI] 2 puffs IH Q4HPRN PRN 07/06/16 [ Confirmed 11/27/16] Alprazolam 1 mg [Xanax 1 mg] 2 mg PO HS 07/06/16 [Confirmed 11/27/16] Hydrocodone Bit/Acetaminophen [Hydrocodon-Acetaminophen 5-325] 1 each PO Q6HPRN PRN #0 tablet 07/07/16 [Confirmed 11/27/16] Ondansetron [Zofran Odt] 4 mg PO Q6H #20 tab.rapdis 07/31/16 [Confirmed 11/27/16 ] Fluoxetine HCl [Prozac] 40 mg PO DAILY 12/01/16 [Confirmed 12/01/16] Active Inpatient Medications Acetaminophen/Hydrocodone Bitart ([place] 5/325 Mg) 1 tab PO Q6HPRN PRN PRN Reason: PAIN Stop: 12/03/16 08:41 Last Admin: 11/30/16 22:35 Dose: 1 tab Albuterol/Ipratropium (Duoneb 0.5-3 Mg/3 Ml Neb) 3 ml IH Q4HRT [facility] [place] Stop: 12/27/16 22:59 Last Admin: 12/01/16 07:13 Dose: 3 ml Alprazolam (Xanax 1 Mg) 1 mg PO Q6HPRN PRN PRN Reason: ANXIETY Stop: 12/28/16 08:41 Last Admin: 11/30/16 22:35 Dose: 1 mg Azithromycin (Zithromax 250 Mg Tablet) 250 mg PO DAILY [facility] [place] Stop: 12/30/16 21:59 Last Admin: 11/30/16 21:36 Dose: 250 mg Bupropion HCl (Wellbutrin Sr 150 Mg) 150 mg PO BID [facility] [place] Stop: 12/28/16 09:59 Last Admin: 11/30/16 21:34 Dose: 150 mg Docusate Sodium (Colace 100 Mg) 200 mg PO DAILY PRN PRN PRN Reason: CONSTIPATION Stop: 12/29/16 11:39 Last Admin: 11/29/16 12:04 Dose: 200 mg Enoxaparin Sodium (Enoxaparin Sodium) 40 mg SQ DAILY [facility] [place] Stop: 12/28/16 09:59 Last Admin: 11/30/16 09:30 Dose: 40 mg Famotidine (Pepcid 20 Mg Vial) 20 mg IV Q12HT [facility] [place] Stop: 12/27/16 21:59 Last Admin: 11/30/16 21:36 Dose: 20 mg Ibuprofen (Motrin 400 Mg) 400 mg PO Q4HPRN PRN PRN Reason: PAIN Stop: 12/29/16 11:39 Last Admin: 11/29/16 12:04 Dose: 400 mg Levetiracetam (Keppra 500 Mg ) 500 mg PO BID [facility] [place] Stop: 12/28/16 09:59 Last Admin: 11/30/16 21:35 Dose: 500 mg Levothyroxine Sodium (Synthroid 25 Mcg) 25 mcg PO DAILY [facility] [place] Stop: 12/28/16 09:59 Last Admin: 11/30/16 09:29 Dose: 25 mcg Methylprednisolone Sodium Succinate (Solu-Medrol 40 Mg) 40 mg IV BID [facility] Stop: 12/30/16 09:59 Last Admin: 11/30/16 21:32 Dose: 40 mg Ondansetron HCl (Zofran Odt 4 Mg) 4 mg PO Q6H PRN PRN Stop: 12/28/16 08:44 Pantoprazole Sodium (Protonix 40mg Tablet) 40 mg PO BID [facility] Stop: 12/28/16 09:59 Last Admin: 11/30/16 21:33 Dose: 40 mg Sodium Chloride (Sodium Chloride 0.9% 10 Ml Flush Syringe) 10 ml IV Q8HT [facility] Stop: 12/28/16 21:59 Last Admin: 11/30/16 21:36 Dose: 10 ml Sodium Chloride (Sodium Chloride 0.9% 10 Ml Flush Syringe) 10 ml IV PRN PRN PRN Reason: IV flush Stop: 12/28/16 16:26 Last Admin: 11/28/16 18:02 Dose: 10 ml Throat Lozenges (Cepacol Sore Throat Lozenge) 15 mg PO Q2HPRN PRN PRN Reason: SORE THROAT Stop: 12/30/16 09:18 Last Admin: 11/30/16 18:29 Dose: 15 mg Tiotropium [place] (Spiriva 18 Mcg/Cap Inhaler) 1 ea IH DAILY [facility] [place] Stop: 12/30/16 09:59 Last Admin: 12/01/16 07:13 Dose: 1 ea Instructions: Asthma -- Adult, Chronic Obstructive Pulmonary Disease Forms: Patient Portal Information
[2016-12-01] MEDS: NORCO 5/325 MG PO PRN (08:50)
[2016-12-01] MEDS: XANAX 1 MG PO PRN (08:51)
[2016-12-01] MEDS: SYNTHROID 25 MCG PO SCH (08:51)
[2016-12-01] MEDS: KEPPRA 500 MG PO SCH (08:51)
[2016-12-01] MEDS: Wellbutrin SR 150 MG PO SCH (08:51)
[2016-12-01] MEDS: Protonix 40MG Tablet PO SCH (08:51)
[2016-12-01] MEDS: Zithromax 250 MG TABLET PO SCH (08:51)
[2016-12-01] MEDS: ENOXAPARIN SODIUM SQ SCH (08:52)
[2016-12-01] MEDS: solu-MEDROL 40 MG IV SCH (08:52)
[2016-12-01] MEDS: Pepcid 20 MG VIAL IV SCH (08:52)
[2016-12-01] MEDS: Sodium Chloride 0.9% 10 ML FLUSH Syringe IV SCH (09:08)
[2016-12-01] MEDS ORDERED: Nystatin SUSPENSION 60 ML PO SCH (10:00)
[2016-12-01 11:20] VITALS: BP 138/71; PULSE 77; O2SAT 91
--- NOTE | 2016-12-01 23:41 | PCM.DS ---
Discharge Summary Date of Admission: 11/29/16 07:55 Date of Discharge: 12/01/16 Admitting Physician: DOMINGA DE Primary Care Provider: DOMINGA DE Allergies Allergies morphine Allergy (Intermediate, Verified 11/27/16 18:41) Hives tramadol Allergy (Verified 11/27/16 18:41) Hospital Summary - Hospital Course Hospital Course: She began to develop copd exacerbation at home and tried to ttake an old prednisone script taking 20 mg for 1 week then 10 mg for 1 week. She then stopped and had acute worsening. She was coughing up thick sputum and got choked on this resulting in her coming to ED by ambulance. She has her chronic home oxygen and follows with pulmonology as well. She had x-ray negative for infiltrate and remained afebrile but had significant tightness in her lungs with wheezing and difficult to improve despite the iv steroids and antibiotics. She was weak but did eventually improve her air exchange and tolerated the steroid wean and will continue the steroid taper and finish coarse of antibiotic at home and continue her home oxygen. - Vitals & Intake/Output Vital Signs: Vital Signs Temperature 98.1 F 12/01/16 11:19 Pulse Rate 77 12/01/16 11:19 Respiratory Rate 19 12/01/16 11:19 Blood Pressure 138/71 12/01/16 11:19 O2 Sat by Pulse Oximetry 91 L 12/01/16 11:19 Oxygen-Last Documented O2 Percentage 2 Liters = 28% Intake & Output: Intake & Output 11/29/16 11/30/16 12/01/16 12/02/16 11:59 11:59 11:59 11:59 Intake Total 480 2580 1260 Balance 480 2580 1260 Weight 59.829 kg 61.19 kg - Lab Result Diagrams: 11/27/16 19:10 11/27/16 19:10 - Procedures and Test Procedures and Tests throughout Hospitalization: Therapy Orders & Screens 11/30/16 07:00 Respiratory MDI DAILY Comment: AMIRA DAILY Diagnosis: Acut exacerbation COPD w/ Asthma Discharge Exam General Appearance: no apparent distress, anxiety Neurologic Exam: alert, oriented x 3, cooperative Skin Exam: warm, dry, No rash Eye Exam: No scleral icterus, No pale conjunctivae Ears, Nose, Throat Exam: moist mucous membranes Neck Exam: normal inspection, non-tender, supple Respiratory Exam: prolonged expirations, wheezing, No crackles/rales Cardiovascular Exam: regular rate/rhythm, No murmur, No edema Gastrointestinal/Abdomen Exam: soft, normal bowel sounds, No tenderness Extremity Exam: normal inspection, No calf tenderness, No pedal edema Final Diagnosis/Problem List - Final Discharge Diagnosis/Problem (1) COPD with exacerbation Status: Acute (2) Anxiety Status: Chronic - Discharge Disposition: Home, Self-Care Condition: Stable Prescriptions: Nystatin 60 ml [Nystatin SUSPENSION 60 ML] 5 ml PO QID #120 ml Prednisone 10 mg PO DAILY #31 tablet Azithromycin 250 mg [Zithromax 250 MG TABLET] 250 mg PO DAILY #3 tablet Medications: Home Medications Levetiracetam 500 mg PO BID 02/01/16 [Confirmed 11/27/16] Levothyroxine Sodium 25 Mcg [Synthroid 25 Mcg] 25 mcg PO DAILY 02/01/16 [ Confirmed 11/27/16] Naproxen 500 mg PO BID 02/01/16 [Confirmed 11/27/16] Omeprazole 40 mg PO TID 02/01/16 [Confirmed 11/27/16] Alprazolam 1 mg [Xanax 1 mg] 1 mg PO Q6HPRN PRN 02/09/16 [Confirmed ] Albuterol 2.5 mg/3 ml Neb [Proventil 2.5 mg/3 ml Neb] 1 neb IH Q4H [Confirmed 11/27/16] Albuterol 8 gm Mdi Hfa [Ventolin Hfa MDI] 2 puffs IH Q4HPRN PRN 07/06/16 [ Confirmed 11/27/16] Alprazolam 1 mg [Xanax 1 mg] 2 mg PO HS 07/06/16 [Confirmed 11/27/16] Hydrocodone Bit/Acetaminophen [Hydrocodon-Acetaminophen 5-325] 1 each PO Q6HPRN PRN #0 tablet 07/07/16 [Confirmed 11/27/16] Ondansetron [Zofran Odt] 4 mg PO Q6H #20 tab.rapdis 07/31/16 [Confirmed 11/27/16 ] Azithromycin 250 mg [Zithromax 250 MG TABLET] 250 mg PO DAILY #3 tablet Fluoxetine HCl [Prozac] 40 mg PO DAILY 12/01/16 [Confirmed 12/01/16] Nystatin 60 ml [Nystatin SUSPENSION 60 ML] 5 ml PO QID #120 ml 12/01/16 Prednisone 10 mg PO DAILY #31 tablet 12/01/16 Instructions: Asthma -- Adult, Chronic Obstructive Pulmonary Disease Follow up with: DOMINGA DE [Primary Care Provider] - 12/08/16 1:15 pm Forms: Patient Portal Information
== END 2016-12-01 12:50 | disposition home or self-care (01) | DRG 192 ==
LOC: ED 18:34 → MED SURG 20:55 → OBSVTOIN 11-29 07:55
PROVIDERS: ADMIT Family Medicine; ATTEND Family Medicine
DX: J44.1 Chronic obstructive pulmonary disease with (acute) exacerbation (principal); J45.909 Unspecified asthma, uncomplicated; F41.8 Other specified anxiety disorders; G40.909 Epilepsy, unspecified, not intractable, without status epilepticus; I50.9 Heart failure, unspecified; M19.90 Unspecified osteoarthritis, unspecified site; Z85.41 Personal history of malignant neoplasm of cervix uteri
CPT/HCPCS: 36415; 36600; 71010; 80053; 81000; 82375; 82803; 83605; 83880; 84484; 85025; 87040; 87070; 93005; 94640; 94760; 96374; 99285; G0378; J0456; J0696; J1650; J2920; J2930

== ENCOUNTER 2018-03-27 20:49 | Observation (INO) | payer MEDICARE, MEDICAID ==
[~2018-03-27 20:49] MED LIST: DUONEB 0.5-3 MG/3 ml Neb IH ONE
[2018-03-27] MEDS ORDERED: Sodium Chloride 0.9% 1000 ML 1,000 ML IV STA (20:54)
[2018-03-27] MEDS ORDERED: solu-MEDROL 125 MG IV ONE (20:54)
[2018-03-27] MEDS ORDERED: PROVENTIL 2.5 MG/3 ML NEB IH ONE (20:54)
[2018-03-27] MEDS ORDERED: DUONEB 0.5-3 MG/3 ml Neb IH ONE (20:54)
[2018-03-27] MEDS ORDERED: PROVENTIL Solution 2.5 MG/0.5 ML IH ONE (21:11)
[2018-03-27] MEDS ORDERED: Sodium Chloride 3 ML UD NEBULES IH ONE (21:11)
[2018-03-27] MEDS ORDERED: solu-MEDROL 125 MG ONE (21:13)
[2018-03-27] MEDS ORDERED: Sodium Chloride 0.9% 1000 ML 1,000 ML ONE (21:13)
[2018-03-27 21:37] LABS: BASOPHIL % 0.7 % (0.0-0.4); Basophil (Absolute #) 0.05 (0-0.4); Eosinophil % 11.6 % (0.00-5.0); Eosinophil (Absolute #) 0.89 (0-0.5); Granulocytes % 41.5 % (36.0-66.0); Hematocrit 40.5 % (35-47); Hemoglobin 13.7 gm/dl (12.0-16.0); Lymphocyte (Absolute #) 2.89 (1.0-4.6); Lymphocytes % 37.6 % (24.0-44.0); Mean Cell Volume 87.5 fl (78-100); Mean Corpuscular Hemoglobin 29.6 pg (26-32); Mean Corpuscular Hgb Concent. 33.8 g/dl (32-36); Mean Platelet Volume 9.3 fl (6-9.5); Monocyte (Absolute #) 0.66 (0.0-1.3); Monocytes % 8.6 % (0.0-12.0); Platelet Count 315 K/mm3 (150-450); Red Blood Count 4.63 M/mm3 (4.1-5.4); Red Cell Distribution Width 13.2 % (11.5-14.0); White Blood Count 7.7 K/mm3 (4.0-10.5)
[2018-03-27 21:54] LABS: ALBUMIN 4.1 g/dL (3.5-5.0); ALKALINE PHOSPHATASE 83 U/L (38-126); ANION GAP 14.1 MEQ/L (5-15); BLOOD UREA NITROGEN 7 mg/dL (7-17); CHLORIDE 101 mmol/L (98-107); Calcium 9.1 mg/dL (8.4-10.2); Carbon Dioxide 30 mmol/L (22-30); Creatinine 1 0.82 mg/dL (0.52-1.04); Glucose 143 mg/dL (74-106); Potassium 3.8 mmol/L (3.5-5.1); SGOT/AST 24 U/L (14-36); SGPT/ALT 18 U/L (0-35); SODIUM 141 mmol/L (137-145); Total Protein 6.8 g/dL (6.3-8.2)
[2018-03-27] MEDS ORDERED: Levofloxacin 500MG/100ML D5W 500 MG/100 ML BAG IV STA (22:04)
[2018-03-27] MEDS ORDERED: Levofloxacin 500MG/100ML D5W 500 MG/100 ML BAG IV ONE (22:05)
[2018-03-27 22:22] LABS: INFLUENZA A NEGATIVE (NEGATIVE); INFLUENZA B NEGATIVE (NEGATIVE); RESPIRATORY SYNCTIAL VIRUS NEGATIVE (Negative)
--- NOTE | 2018-03-27 22:28 | ERPHSYRPT ---
- History of Present Illness Time Seen by Provider: 03/27/18 22:03 Source: patient Exam Limitations: clinical condition Patient Subjective Stated Complaint: Pt arrives to ER with sig other for c/o SOB since Sunday states has not had neb tx since this Morning and developed respirtory distress while sitting in chair stating has gradually become worse around 2014 today and took rescue inhaler which did not seem to help. Pt has COPD Triage Nursing Assessment: Pt ambulated in ambulance entrace in tripod position with boyfriend. pt in respirtory distress with short 3 word sentences despite pt continuously wanting to talk. pt has good color. Audible wheezing with minimal air movement. Physician History: PATIENT WITH A HISTORY OF COPD COMPLAINS OF INCREASING DYSPNEA, PRODUCTIVE COUGH AND DIFFICULTY BREATHING OVER 1 MONTH. NOW HAS ACCESSORY MUSCLE USE, AND MARKE DYSPNEA UPON EXERTION. DENIES CHEST PAIN AND FEVER. Timing/Duration: week(s) Activities at Onset: none Severity of Dyspnea-Max: severe Severity of Dyspnea-Current: severe Possible Cause: occasional episodes Modifying Factors: Improves With: activity, coughing Associated Symptoms: productive cough Allergies/Adverse Reactions: morphine Allergy (Intermediate, Verified 03/27/18 21:06) Hives tramadol Allergy (Verified 03/27/18 21:06) Home Medications: Levothyroxine Sodium 25 Mcg [Synthroid 25 Mcg] 25 mcg PO DAILY 02/01/16 [ History] Naproxen 500 mg PO BID 02/01/16 [History] Omeprazole 40 mg PO TID 02/01/16 [History] Alprazolam 1 mg [Xanax 1 mg] 1 mg PO Q6HPRN PRN 02/09/16 [History] Albuterol 2.5 mg/3 ml Neb [Proventil 2.5 mg/3 ml Neb] 1 neb IH Q4H [History] Albuterol 8 gm Mdi Hfa [Ventolin Hfa MDI] 2 puffs IH Q4HPRN PRN 07/06/16 [ History] Alprazolam 1 mg [Xanax 1 mg] 2 mg PO HS 07/06/16 [History] Fluoxetine HCl [Prozac] 40 mg PO DAILY 01/06/17 [History] Estrogens,Conjugated [Premarin Vaginal Cream] 1 dose TOP DAILY 03/27/18 [History ] Hx Tetanus, Diphtheria Vaccination/Date Given: Yes Hx Influenza Vaccination/Date Given: Yes Hx Pneumococcal Vaccination/Date Given: Yes Immunizations Up to Date: Yes - Review of Systems Constitutional: No Fever, No Chills Eyes: No Symptoms Ears, Nose, & Throat: No Symptoms Respiratory: Cough, Dyspnea, Dyspnea on Exertion ([place]) Cardiac: No Symptoms, No Chest Pain, No Edema, No Syncope Abdominal/Gastrointestinal: No Symptoms, No Abdominal Pain, No Nausea, No Vomiting, No Diarrhea Genitourinary Symptoms: No Symptoms, No Dysuria Musculoskeletal: No Symptoms, No Back Pain, No Neck Pain Skin: No Rash Neurological: No Dizziness, No Focal Weakness, No Sensory Changes Psychological: No Symptoms Endocrine: No Symptoms All Other Systems: Reviewed and Negative - Past Medical History Pertinent Past Medical History: Yes Neurological History: Seizures ENT History: No Pertinent History Cardiac History: Congestive Heart Failure, High Cholesterol Respiratory History: Bronchitis, COPD Endocrine Medical History: No Pertinent History Musculoskeletal History: Arthritis GI Medical History: Gallbladder Disease, Hemorrhoids History: No Pertinent History Psycho-Social History: Anxiety, Depression, Panic Disorder Female Reproductive Disorders: Cervical Cancer, Vaginal Cancer Other Medical History: test + for tb on skin test chest xray are neg.manic depression - Past Surgical History Past Surgical History: Yes Neuro Surgical History: No Pertinent History Cardiac: No Pertinent History Respiratory: No Pertinent History Gastrointestinal: Cholecystectomy Genitourinary: No Pertinent History Musculoskeletal: Orthopedic Surgery Female Surgical History: Hysterectomy, Other Other Surgical History: partial vulvectomy, dand c's , rt hand surgery, epidural for back pain cerviacl cancer-removed around cervix,rt knee surgery - Social History Smoking Status: Former smoker How long have you smoked: 30 years Exposure to second hand smoke: Yes Drug Use: none Patient Lives Alone: No - Female History Hx Now: No - Nursing Vital Signs Nursing Vital Signs: Initial Vital Signs Temperature 98.5 F 03/27/18 20:51 Pulse Rate 102 H 03/27/18 20:51 Respiratory Rate 28 H 03/27/18 20:51 Blood Pressure 135/86 03/27/18 20:51 O2 Sat by Pulse Oximetry 99 03/27/18 20:51 Pain Scale Pain Intensity 0 - Physical Exam General Appearance: severe distress Eye Exam: PERRL/EOMI Neck Exam: normal inspection Respiratory Exam: respiratory distress, diminished breath sounds, accessory muscle use, prolonged expirations Cardiovascular/Chest Exam: normal heart sounds Abdominal/Gastrointestinal Exam: soft, normal bowel sounds Extremity Exam: non-tender Peripheral Pulses Exam: carotid (R): 2+, carotid (L): 2+, femoral (R): 2+, femoral (L): 2+, dorsalis-pedis (R): 2+, dorsalis-pedis (L): 2+ Neurologic Exam: alert, oriented x 3, other Skin Exam: normal color SpO2 Interpretation: normal SpO2: 99 Oxygen Delivery: Nasal Cannula Ordered Tests: Active Orders 24 hr Category Date Time Status Up With Assistance ROUTINE Activity 03/27/18 22:30 Ordered Instructional Technology Coordinator STAT Care 03/27/18 20:54 Active Code Status Order ROUTINE Care 03/27/18 22:30 Ordered IV Care Q6H Care 03/27/18 22:30 Ordered IV Insertion STAT Care 03/27/18 20:54 Active Oxygen-ED Only NASAL CANNULA 2 lpm Care 03/27/18 20:[address] in Observation ROUTINE Care 03/27/18 22:30 Ordered Jose L Hose, Apply ROUTINE Care 03/27/18 22:30 Ordered Telemetry ROUTINE Care 03/27/18 22:30 Ordered Vital Signs Q4H Care 03/27/18 22:30 Ordered Weight,Daily 0600 Care 03/27/18 22:30 Ordered Low Sodium Diet 03/27/18 Breakfast Ordered CHEST 1 VIEW (PORTABLE) Stat Exams 03/27/18 21:31 Taken BLOOD CULTURE Stat Lab 03/27/18 21:30 Received CBC W DIFF Stat Lab 03/27/18 21:15 Completed CMP Stat Lab 03/27/18 21:15 Completed D-DIMER QUANTITATION Stat Lab 03/27/18 21:15 Completed Lactic Acid Stat Lab 03/27/18 21:05 Completed MAGNESIUM Stat Lab 03/27/18 21:15 Completed Sputum Culture [CULTURE,SPUTUM] Stat Lab 03/27/18 21:44 Ordered TROPONIN Q3H Lab 03/27/18 21:15 Completed TROPONIN Q3H Lab 03/28/18 00:00 Ordered TROPONIN Q3H Lab 03/28/18 03:00 Ordered TROPONIN Q3H Lab 03/28/18 06:00 Ordered TROPONIN Q3H Lab 03/28/18 09:00 Ordered Oxygen NASAL CANNULA 2 lpm RT 03/27/18 22:30 Ordered Respiratory Nebulizer STAT RT 03/27/18 20:55 Completed Respiratory Nebulizer STAT RT 03/27/18 22:36 Ordered Transfer Order Routine Transfer 03/27/18 Ordered Medication Summary Generic Name Dose Route Start Last Admin Trade Name Ute PRN Reason Stop Dose Admin Levofloxacin/Dextrose 500 mg in 100 mls @ 100 mls/hr 03/27/18 22:04 03/27/18 22:14 Levofloxacin 500mg/100ml D5w IV 03/27/18 23:03 100 mls/hr STAT STA 100 mls/hr Administration Discontinued Medications Generic Name Dose Route Start Last Admin Trade Name Ute PRN Reason Stop Dose Admin Albuterol Sulfate 10 mg 03/27/18 20:54 03/27/18 21:11 Proventil 2.5 Mg/3 Ml Neb IH 03/27/18 20:55 10 mg STAT ONE Administration Albuterol Sulfate Confirm 03/27/18 21:11 Proventil Solution 2.5 Mg/0.5 Ml Administered 03/27/18 21:12 Dose 10 mg IH .STK-MED ONE Albuterol/Ipratropium 3 ml 03/27/18 20:54 03/27/18 20:55 Duoneb 0.5-3 Mg/3 Ml Neb IH 03/27/18 20:55 3 ml STAT ONE Administration Sodium Chloride 1,000 mls @ 999 mls/hr 03/27/18 20:54 03/27/18 22:09 Sodium Chloride 0.9% 1000 Ml IV 03/27/18 21:54 999 mls/hr .Q1H1M STA Administration Sodium Chloride Confirm 03/27/18 21:13 Sodium Chloride 0.9% 1000 Ml Administered 03/27/18 21:14 Dose 1,000 mls @ ud .ROUTE .STK-MED ONE Levofloxacin/Dextrose Confirm 03/27/18 22:05 Levofloxacin 500mg/100ml D5w Administered 03/27/18 22:06 Dose 500 mg in 100 mls @ ud IV .STK-MED ONE Methylprednisolone Sodium Succinate 125 mg 03/27/18 20:54 03/27/18 21:17 Solu-Medrol 125 Mg IV 03/27/18 20:55 125 mg STAT ONE Administration Methylprednisolone Sodium Succinate Confirm 03/27/18 21:13 Solu-Medrol 125 Mg Administered 03/27/18 21:14 Dose 125 mg .ROUTE .STK-MED ONE Sodium Chloride Confirm 03/27/18 21:11 Sodium Chloride 3 Ml Ud Nebules Administered 03/27/18 21:12 Dose 6 ml IH .STK-MED ONE Lab/Rad Data: Laboratory Result Diagrams 03/27/18 21:15 03/27/18 21:15 Laboratory Results 03/27/18 03/27/18 03/27/18 Range/Units 21:30 21:15 21:15 WBC (4.0-10.5) K/mm3 RBC (4.1-5.4) M/mm3 Hgb (12.0-16.0) gm/dl Hct (35-47) % MCV (78-100) fl MCH (26-32) pg MCHC (32-36) g/dl RDW (11.5-14.0) % Plt Count (150-450) K/mm3 MPV (6-9.5) fl Gran % (36.0-66.0) % Eos # (Auto) (0-0.5) Absolute Lymphs (auto) (1.0-4.6) Absolute Monos (auto) (0.0-1.3) Lymphocytes % (24.0-44.0) % Monocytes % (0.0-12.0) % Eosinophils % (0.00-5.0) % Basophils % (0.0-0.4) % Absolute Granulocytes (1.4-6.9) Basophils # (0-0.4) D-Dimer < 215 L (215-500) ng/mL Sodium (137-145) mmol/L Potassium (3.5-5.1) mmol/L Chloride (98-107) mmol/L Carbon Dioxide (22-30) mmol/L Anion Gap (5-15) MEQ/L BUN (7-17) mg/dL Creatinine (0.52-1.04) mg/dL Estimated GFR ML/MIN Glucose (74-106) mg/dL Lactic Acid (0.4-2.0) Calcium (8.4-10.2) mg/dL Magnesium (1.6-2.3) mg/dL Total Bilirubin (0.2-1.3) mg/dL AST (14-36) U/L ALT (0-35) U/L Alkaline Phosphatase (38-126) U/L Troponin I < 0.012 (0.000-0.034) ng/mL Serum Total Protein (6.3-8.2) g/dL Albumin (3.5-5.0) g/dL Influenza Type A Ag NEGATIVE (NEGATIVE) Influenza Type B Ag NEGATIVE (NEGATIVE) RSV (PCR) NEGATIVE (Negative) 03/27/18 03/27/18 03/27/18 Range/Units 21:15 21:15 21:05 WBC 7.7 (4.0-10.5) K/mm3 RBC 4.63 (4.1-5.4) M/mm3 Hgb 13.7 (12.0-16.0) gm/dl Hct 40.5 (35-47) % MCV 87.5 (78-100) fl MCH 29.6 (26-32) pg MCHC 33.8 (32-36) g/dl RDW 13.2 (11.5-14.0) % Plt Count 315 (150-450) K/mm3 MPV 9.3 (6-9.5) fl Gran % 41.5 (36.0-66.0) % Eos # (Auto) 0.89 H (0-0.5) Absolute Lymphs (auto) 2.89 (1.0-4.6) Absolute Monos (auto) 0.66 (0.0-1.3) Lymphocytes % 37.6 (24.0-44.0) % Monocytes % 8.6 (0.0-12.0) % Eosinophils % 11.6 H (0.00-5.0) % Basophils % 0.7 (0.0-0.4) % Absolute Granulocytes 3.20 (1.4-6.9) Basophils # 0.05 (0-0.4) D-Dimer (215-500) ng/mL Sodium 141 (137-145) mmol/L Potassium 3.8 (3.5-5.1) mmol/L Chloride 101 (98-107) mmol/L Carbon Dioxide 30 (22-30) mmol/L Anion Gap 14.1 (5-15) MEQ/L BUN 7 (7-17) mg/dL Creatinine 0.82 (0.52-1.04) mg/dL Estimated GFR > 60.0 ML/MIN Glucose 143 H (74-106) mg/dL Lactic Acid 1.0 (0.4-2.0) Calcium 9.1 (8.4-10.2) mg/dL Magnesium 1.8 (1.6-2.3) mg/dL Total Bilirubin 0.40 (0.2-1.3) mg/dL AST 24 (14-36) U/L ALT 18 (0-35) U/L Alkaline Phosphatase 83 (38-126) U/L Troponin I (0.000-0.034) ng/mL Serum Total Protein 6.8 (6.3-8.2) g/dL Albumin 4.1 (3.5-5.0) g/dL Influenza Type A Ag (NEGATIVE) Influenza Type B Ag (NEGATIVE) RSV (PCR) (Negative) - Progress Progress: improved Air Movement: fair Progress Note: 03/27/18 22:26 ADMINISTERED DUO NEG AEROSOL FOLLOWED BY CONTINUOUS ALBUTEROL 10MG AEROSOL OVER 1 HOUR. IV NORMAL SALINE 1 LITER BOLUS, SOLUMEDROL 125MG IV, LACTIC ACID 1.0, LEVAQUIN 500MG IVPB AFTER 2 SETS OF BLOOD CULTURES OBTAINED. Blood Culture(s) Obtained: Yes Antibiotics given: Yes Discussed with Dr.: Valerio (DISCUSSED WITH DR VALERIO AT 2215 FOR OBSERVATION) - Departure Time of Disposition: 22:36 Departure Disposition: Observation Clinical Impression: ACUTE EXACERBATION COPD Condition: Stable Critical Care Time: No Referrals: GUALBERTO KOHLER [Primary Care Provider] -
[2018-03-27] MEDS ORDERED: Sodium Chloride 0.9% 1000 ML 1,000 ML IV SCH (22:30)
[2018-03-27] MEDS ORDERED: TYLENOL 325 MG PO PRN (22:33)
[2018-03-27] MEDS ORDERED: Xopenex 1.25 MG/0.5 ML UD NEBULE IH PRN (22:36)
[2018-03-27] MEDS: DUONEB 0.5-3 MG/3 ml Neb IH SCH (23:22)
[2018-03-28] MEDS: solu-MEDROL 125 MG IV SCH ×3 (01:17→11:50)
[2018-03-28] MEDS: DUONEB 0.5-3 MG/3 ml Neb IH SCH ×2 (03:17→07:24)
[2018-03-28] MEDS ORDERED: XANAX 1 MG PO PRN (08:00)
--- NOTE | 2018-03-28 08:59 | XRAY ---
Indication: Productive cough and dyspnea. COPD. Comparison: November 27, 2016. Portable apical lordotic chest slightly rotated today and remains hyperinflated and clear. Heart and mediastinal structures within normal limits. Bony thorax intact. Impression: Stable nonacute hyperinflated chest.
[2018-03-28] MEDS ORDERED: Prozac 20 MG PO SCH (10:00)
[2018-03-28] MEDS ORDERED: SYNTHROID 25 MCG PO SCH (10:00)
[2018-03-28 11:59] VITALS: BP 122/70; PULSE 92; O2SAT 96
--- NOTE | 2018-03-28 12:26 | PCM.SSS ---
History of Present Illness - Chief Complaint Chief Complaint: shortness of breath for 2-3 days History of Present Illness: is a 52 year old female came to ER with c/o shortness of breath - Review of Systems Constitutional: No Fever, No Chills Eyes: No Symptoms Ears, Nose, & Throat: No Symptoms Respiratory: No Cough, No Short Of Breath Cardiac: No Chest Pain, No Edema, No Syncope Abdominal/Gastrointestinal: No Abdominal Pain, No Nausea, No Vomiting, No Diarrhea Genitourinary Symptoms: No Dysuria Musculoskeletal: No Back Pain, No Neck Pain Skin: No Rash Neurological: No Dizziness, No Focal Weakness, No Sensory Changes Psychological: No Symptoms Endocrine: No Symptoms Hematologic/Lymphatic: No Symptoms Immunological/Allergic: No Symptoms Medications & Allergies Home Medications: Home Medication List Levothyroxine Sodium 25 Mcg [Synthroid 25 Mcg] 25 mcg PO DAILY 02/01/16 [ History Confirmed 03/28/18] Naproxen 500 mg PO BID 02/01/16 [History Confirmed 03/28/18] Omeprazole 40 mg PO DAILY 02/01/16 [History Confirmed 03/28/18] Albuterol 2.5 mg/3 ml Neb [Proventil 2.5 mg/3 ml Neb] 1 neb IH Q4H [History Confirmed 03/27/18] Albuterol 8 gm Mdi Hfa [Ventolin Hfa MDI] 2 puffs IH Q4HPRN PRN 07/06/16 [ History Confirmed 03/27/18] Alprazolam 1 mg [Xanax 1 mg] 1 mg PO Q8HPRN PRN #45 tablet 03/28/18 [Rx] Alprazolam 1 mg [Xanax 1 mg] 1 mg PO TID 03/28/18 [History Confirmed 03/28] Benzonatate [Tessalon Perle] 100 mg PO BID 30 Days capsule 03/28/18 [Rx] Fluoxetine HCl [Prozac] 80 mg PO DAILY #30 capsule 03/28/18 [Rx] Levofloxacin [Levaquin] 250 mg PO DAILY #5 tablet 03/28/18 [Rx] Levofloxacin [Levofloxacin 500MG/100ML D5W] 500 mg IV QPM #0 bag 03/28/18 [Rx] Methylprednisolone Packet [Medrol Dosepack] 4 mg PO UD #30 packet [Rx] Allergies/Adverse Reactions: Allergies Allergy/AdvReac Type Severity Reaction Status Date / Time morphine Allergy Intermediate Hives Verified 03/27/18 21:06 tramadol Allergy Verified 03/27/18 21:06 - Past Medical History Past Medical History: Yes Neurological History: No Pertinent History ENT History: Other Cardiac History: No Pertinent History Respiratory History: Bronchitis, COPD Endocrine Medical History: No Pertinent History Musculoskelatal History: Arthritis, Degenerative Disk Disease GI Medical History: Gallbladder Disease, Hemorrhoids History: No Pertinent History Pyscho-Social History: Anxiety, Depression, Panic Disorder Reproductive Disorders: Cervical Cancer, Vaginal Cancer Comment: 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 tb on skin test chest xray are neg.manic depression , congenital nystagmus - Female History Are you now?: No - Past Surgical History Past Surgical History: Yes Neuro Surgical History: No Pertinent History Cardiac History: No Pertinent History Respiratory Surgery: No Pertinent History GI Surgical History: Cholecystectomy Genitourinary Surgical Hx: No Pertinent History Musculskeletal Surgical Hx: Orthopedic Surgery Female Surgical History: Hysterectomy, Dilation & Curettage, Other Other Surgical History: partial vulvectomy , rt hand surgery, epidural for back pain cerviacl cancer-removed around cervix,rt knee surgery - Social History Smoking Status: Former smoker How long have you smoked: 30 years Exposure to second hand smoke: Yes Alcohol: None Drug Use: none - Physical Exam Vital Signs: Vital Signs - 24 hr Temp Pulse Resp BP Pulse Ox 03/28/18 11:59 98.1 F 92 H 18 122/70 96 03/28/18 10:46 97 H 16 94 L 03/28/18 08:30 16 03/28/18 07:42 98.3 F 97 H 20 128/67 95 03/28/18 07:24 91 H 20 96 03/28/18 04:00 98.4 F 91 H 18 115/59 95 03/28/18 03:20 91 H 18 95 03/28/18 00:00 97 H 18 95 03/27/18 23:51 98.5 F 92 H 20 121/62 98 03/27/18 22:37 99 03/27/18 22:14 94 H 18 101/73 99 03/27/18 21:35 101 H 26 H 98 03/27/18 21:18 93 H 24 120/84 98 03/27/18 21:04 24 99 03/27/18 20:51 98.5 F 102 H 28 H 135/86 99 Oxygen-Last 24 hours O2 Percentage 2 Liters = 28% O2 Percentage 2 Liters = 28% O2 Percentage 2 Liters = 28% O2 Percentage 6 Liters = 44% O2 Percentage 6 Liters = 44% O2 Percentage 6 Liters = 44% General Appearance: no apparent distress, alert Neurologic Exam: alert, oriented x 3, cooperative, normal mood/affect, nml cerebellar function, nml station & gait, sensation nml, No motor deficits Eye Exam: PERRL/EOMI, eyes nml inspection Ears, Nose, Throat Exam: normal ENT inspection, TMs normal, pharynx normal, moist mucous membranes Neck Exam: normal inspection, non-tender, supple, full range of motion Respiratory Exam: normal breath sounds, lungs clear, No respiratory distress Cardiovascular Exam: regular rate/rhythm, normal heart sounds, normal peripheral pulses Gastrointestinal/Abdomen Exam: soft, normal bowel sounds, No tenderness, No mass Back Exam: normal inspection, normal range of motion, No CVA tenderness, No vertebral tenderness Extremity Exam: normal inspection, normal range of motion, pelvis stable Skin Exam: normal color, warm, dry, No rash Lymphatic Exam: No adenopathy Results - Labs Lab/Micro Results: Lab Results-Last 24 Hours 03/28/18 03/28/18 03/28/18 Range/Units 00:25 02:40 06:07 Troponin I < 0.012 < 0.012 < 0.012 (0.000-0.034) ng/mL - Other Procedures and Tests Respiratory Therapy 03/27/18 23:00 Respiratory Nebulizer Q4H Assessment/Plan (1) Acute exacerbation of COPD with asthma Status: Resolved Code(s): J44.1 - CHRONIC OBSTRUCTIVE PULMONARY DISEASE W ( ACUTE) EXACERBATION; J45.901 - UNSPECIFIED ASTHMA WITH (ACUTE) EXACERBATION (2) COPD with exacerbation Status: Acute Code(s): J44.1 - CHRONIC OBSTRUCTIVE PULMONARY DISEASE W (ACUTE ) EXACERBATION (3) Failure of outpatient treatment Status: Acute Code(s): Z78.9 - OTHER SPECIFIED HEALTH STATUS (4) Anxiety Status: Chronic Code(s): F41.9 - ANXIETY DISORDER, UNSPECIFIED Hospital Summary - Hospital Course Hospital Course: Chief Complaint Diagnosis Acute Exacerbation COPD Allergies Allergy/AdvReac Type Severity Reaction Status Date / Time morphine Allergy Intermediate Hives Verified 03/27/18 21:06 tramadol Allergy Verified 03/27/18 21:06 Vital Signs (Last 24 hours) Temp Pulse Resp BP Pulse Ox 03/28/18 11:59 98.1 F 92 H 18 122/70 96 03/28/18 10:46 97 H 16 94 L 03/28/18 08:30 16 03/28/18 07:42 98.3 F 97 H 20 128/67 95 03/28/18 07:24 91 H 20 96 03/28/18 04:00 98.4 F 91 H 18 115/59 95 03/28/18 03:20 91 H 18 95 03/28/18 00:00 97 H 18 95 03/27/18 23:51 98.5 F 92 H 20 121/62 98 03/27/18 22:37 99 03/27/18 22:14 94 H 18 101/73 99 03/27/18 21:35 101 H 26 H 98 03/27/18 21:18 93 H 24 120/84 98 03/27/18 21:04 24 99 03/27/18 20:51 98.5 F 102 H 28 H 135/86 99 Home Medications Medication Instructions Recorded Confirmed Last Taken Type Alprazolam 1 mg [Xanax 1 mg] 1 mg PO TID 03/28/18 03/28/18 03/27/18 History Current Medications Generic Name Dose Route Start Last Admin Trade Name Freq PRN Reason Stop Dose Admin Acetaminophen 650 mg 03/27/18 22:33 Tylenol 325 Mg PO 04/26/18 22:32 Q4H PRN PRN PAIN AND/OR FEVER Albuterol/Ipratropium 3 ml 03/27/18 23:00 03/28/18 07:24 Duoneb 0.5-3 Mg/3 Ml Neb IH 04/26/18 22:59 3 ml Q4HRT BREA Administration Alprazolam 1 mg 03/28/18 08:00 03/28/18 09:39 Xanax 1 Mg PO 04/27/18 07:59 1 mg Q6H PRN PRN Administration ANXIETY Fluoxetine HCl 40 mg 03/28/18 10:00 03/28/18 09:30 Prozac 20 Mg PO 04/27/18 09:59 40 mg DAILY BREA Administration Levofloxacin/Dextrose 500 mg in 100 mls @ 100 mls/hr 03/28/18 22:00 Levofloxacin 500mg/100ml D5w IV 04/27/18 21:59 QPM BREA Sodium Chloride 1,000 mls @ 50 mls/hr 03/27/18 22:30 03/27/18 23:43 Sodium Chloride 0.9% 1000 Ml IV 04/26/18 22:29 50 mls/hr .Q20H BREA Administration Levalbuterol HCl 1.25 mg 03/27/18 22:36 Xopenex 1.25 Mg/0.5 Ml Ud Nebule IH 04/26/18 22:35 Q2HPRN PRN DIFFICULTY BREATHING Levothyroxine Sodium 25 mcg 03/28/18 10:00 03/28/18 09:29 Synthroid 25 Mcg PO 04/27/18 09:59 25 mcg QAM BREA Administration Methylprednisolone Sodium Succinate 80 mg 03/28/18 00:00 03/28/18 11:50 Solu-Medrol 125 Mg IV 04/27/18 00:00 80 mg Q6HT BREA Administration Discontinued Medications Generic Name Dose Route Start Last Admin Trade Name Freq PRN Reason Stop Dose Admin Albuterol Sulfate 10 mg 03/27/18 20:54 03/27/18 21:11 Proventil 2.5 Mg/3 Ml Neb IH 03/27/18 20:55 10 mg STAT ONE Administration Albuterol Sulfate Confirm 03/27/18 21:11 Proventil Solution 2.5 Mg/0.5 Ml Administered 03/27/18 21:12 Dose 10 mg IH .STK-MED ONE Albuterol/Ipratropium 3 ml 03/27/18 20:54 03/27/18 20:55 Duoneb 0.5-3 Mg/3 Ml Neb IH 03/27/18 20:55 3 ml STAT ONE Administration Albuterol/Ipratropium Confirm 03/27/18 20:48 Duoneb 0.5-3 Mg/3 Ml Neb Administered 03/27/18 20:49 Dose 3 ml IH .STK-MED ONE Sodium Chloride 1,000 mls @ 999 mls/hr 03/27/18 20:54 03/27/18 22:09 Sodium Chloride 0.9% 1000 Ml IV 03/27/18 21:54 999 mls/hr .Q1H1M STA Administration Sodium Chloride Confirm 03/27/18 21:13 Sodium Chloride 0.9% 1000 Ml Administered 03/27/18 21:14 Dose 1,000 mls @ ud .ROUTE .STK-MED ONE Levofloxacin/Dextrose 500 mg in 100 mls @ 100 mls/hr 03/27/18 22:04 03/27/18 22:14 Levofloxacin 500mg/100ml D5w IV 03/27/18 23:03 100 mls/hr STAT STA 100 mls/hr Administration Levofloxacin/Dextrose Confirm 03/27/18 22:05 Levofloxacin 500mg/100ml D5w Administered 03/27/18 22:06 Dose 500 mg in 100 mls @ ud IV .STK-MED ONE Methylprednisolone Sodium Succinate 125 mg 03/27/18 20:54 03/27/18 21:17 Solu-Medrol 125 Mg IV 03/27/18 20:55 125 mg STAT ONE Administration Methylprednisolone Sodium Succinate Confirm 03/27/18 21:13 Solu-Medrol 125 Mg Administered 03/27/18 21:14 Dose 125 mg .ROUTE .STK-MED ONE Sodium Chloride Confirm 03/27/18 21:11 Sodium Chloride 3 Ml Ud Nebules Administered 03/27/18 21:12 Dose 6 ml IH .STK-MED ONE Intake & Output (Last 24 hours) 03/26/18 03/27/18 03/28/18 03/29/18 11:59 11:59 11:59 11:59 Intake Total 1124 Output Total 2250 Balance -1126 Weight 63 kg Microbiology Results (Last 24 hours) 03/27/18 21:44 Sputum - Expectorant Gram Stain - Pending 03/27/18 21:44 Sputum - Expectorant Sputum Culture - Pending 03/27/18 21:30 Blood Blood Culture Gram Stain - Pending 03/27/18 21:30 Blood Blood Culture - Pending 03/27/18 21:15 Blood Blood Culture Gram Stain - Pending 03/27/18 21:15 Blood Blood Culture - Pending Laboratory Results (Last 24 hours) 03/28/18 03/28/18 03/28/18 06:07 02:40 00:25 WBC RBC Hgb Hct MCV MCH MCHC RDW Plt Count MPV Gran % Eos # (Auto) Absolute Lymphs (auto) Absolute Monos (auto) Lymphocytes % Monocytes % Eosinophils % Basophils % Absolute Granulocytes Basophils # D-Dimer Sodium Potassium Chloride Carbon Dioxide Anion Gap BUN Creatinine Estimated GFR Glucose Lactic Acid Calcium Magnesium Total Bilirubin AST ALT Alkaline Phosphatase Troponin I < 0.012 < 0.012 < 0.012 Serum Total Protein Albumin Influenza Type A Ag Influenza Type B Ag RSV (PCR) 03/27/18 03/27/18 03/27/18 21:30 21:15 21:15 WBC RBC Hgb Hct MCV MCH MCHC RDW Plt Count MPV Gran % Eos # (Auto) Absolute Lymphs (auto) Absolute Monos (auto) Lymphocytes % Monocytes % Eosinophils % Basophils % Absolute Granulocytes Basophils # D-Dimer < 215 L Sodium Potassium Chloride Carbon Dioxide Anion Gap BUN Creatinine Estimated GFR Glucose Lactic Acid Calcium Magnesium Total Bilirubin AST ALT Alkaline Phosphatase Troponin I < 0.012 Serum Total Protein Albumin Influenza Type A Ag NEGATIVE Influenza Type B Ag NEGATIVE RSV (PCR) NEGATIVE 03/27/18 03/27/18 03/27/18 21:15 21:15 21:05 WBC 7.7 RBC 4.63 Hgb 13.7 Hct 40.5 MCV 87.5 MCH 29.6 MCHC 33.8 RDW 13.2 Plt Count 315 MPV 9.3 Gran % 41.5 Eos # (Auto) 0.89 H Absolute Lymphs (auto) 2.89 Absolute Monos (auto) 0.66 Lymphocytes % 37.6 Monocytes % 8.6 Eosinophils % 11.6 H Basophils % 0.7 Absolute Granulocytes 3.20 Basophils # 0.05 D-Dimer Sodium 141 Potassium 3.8 Chloride 101 Carbon Dioxide 30 Anion Gap 14.1 BUN 7 Creatinine 0.82 Estimated GFR > 60.0 Glucose 143 H Lactic Acid 1.0 Calcium 9.1 Magnesium 1.8 Total Bilirubin 0.40 AST 24 ALT 18 Alkaline Phosphatase 83 Troponin I Serum Total Protein 6.8 Albumin 4.1 Influenza Type A Ag Influenza Type B Ag RSV (PCR) Orders (Last 24 hours) Category Date Time Status Up With Assistance ROUTINE Activity 03/27/18 22:30 Active Supervisory Lifeguard STAT Care 03/27/18 20:54 Active Code Status Order ROUTINE Care 03/27/18 22:30 Active IV Care Q6H Care 03/27/18 22:30 Active IV Insertion STAT Care 03/27/18 20:54 Completed Oxygen-ED Only NASAL CANNULA 2 lpm Care 03/27/18 20:[address] in Observation ROUTINE Care 03/27/18 22:30 Active Jose L Gaona, Apply ROUTINE Care 03/27/18 22:30 Active Telemetry ROUTINE Care 03/27/18 22:30 Active Vital Signs Q4H Care 03/27/18 22:30 Active Weight,Daily 0600 Care 03/27/18 22:30 Active Mud Worker/Discharge Plan Cons 03/28/18 00:09 Active CHEST 1 VIEW (PORTABLE) Stat Exams 03/27/18 21:31 Completed BLOOD CULTURE Stat Lab 03/27/18 21:30 Received CBC W DIFF Stat Lab 03/27/18 21:15 Completed CMP Stat Lab 03/27/18 21:15 Completed D-DIMER QUANTITATION Stat Lab 03/27/18 21:15 Completed Lactic Acid Stat Lab 03/27/18 21:05 Completed MAGNESIUM Stat Lab 03/27/18 21:15 Completed Respiratory Panel Stat Lab 03/27/18 21:30 Completed Sputum Culture [CULTURE,SPUTUM] Stat Lab 03/27/18 21:44 Ordered TROPONIN Q3H Lab 03/27/18 21:15 Completed TROPONIN Q3H Lab 03/28/18 00:25 Completed TROPONIN Q3H Lab 03/28/18 02:40 Completed TROPONIN Q3H Lab 03/28/18 06:07 Completed TROPONIN Q3H Lab 03/28/18 09:00 Received Acetaminophen 325 mg [Tylenol 325 mg] Med 03/27/18 22:33 Active 650 mg PO Q4H PRN PRN Albuterol 2.5 mg/0.5 ml [PROVENTIL Solution 2.5 MG/0 Med 03/27/18 21:11 Discontinued .5 ML] 10 mg IH .STK-MED ONE Albuterol 2.5 mg/3 ml Neb [Proventil 2.5 mg/3 ml Neb Med 03/27/18 20:54 Discontinued ] 10 mg IH STAT ONE Albuterol/Ipratropium 3ml Neb* [DUONEB 0.5-3 MG/3 ml Med 03/27/18 20:48 Discontinued Neb] 3 ml IH .STK-MED ONE Albuterol/Ipratropium 3ml Neb* [DUONEB 0.5-3 MG/3 ml Med 03/27/18 23:00 Active Neb] 3 ml IH Q4HRT Albuterol/Ipratropium 3ml Neb* [DUONEB 0.5-3 MG/3 ml Med 03/27/18 20:54 Discontinued Neb] 3 ml IH STAT ONE Alprazolam 1 mg [Xanax 1 mg] Med 03/28/18 08:00 Active 1 mg PO Q6H PRN PRN Fluoxetine HCl 20 mg [Prozac 20 MG] Med 03/28/18 10:00 Active 40 mg PO DAILY Levalbuterol HCl 1.25 MG/0.5M* [Xopenex 1.25 MG/0.5 ML Med 03/27/18 22:36 Active UD NEBULE] 1.25 mg IH Q2HPRN PRN Levofloxacin [Levofloxacin 500MG/100ML D5W] Med 03/28/18 22:00 Active 500 mg in 100 ml IV QPM Levofloxacin [Levofloxacin 500MG/100ML D5W] Med 03/27/18 22:04 Discontinued 500 mg in 100 ml IV STAT Levofloxacin [Levofloxacin 500MG/100ML D5W] Med 03/27/18 22:05 Discontinued 500 mg in 100 ml IV UD Levothyroxine Sodium 25 Mcg [Synthroid 25 Mcg] Med 03/28/18 10:00 Active 25 mcg PO QAM Methylprednis Sod Succ 125 mg* [solu-MEDROL 125 MG] Med 03/27/18 21:13 Discontinued 125 mg .ROUTE .STK-MED ONE Methylprednis Sod Succ 125 mg* [solu-MEDROL 125 MG] Med 03/27/18 20:54 Discontinued 125 mg IV STAT ONE Methylprednis Sod Succ 125 mg* [solu-MEDROL 125 MG] Med 03/28/18 00:00 Active 80 mg IV Q6HT NaCl 0.9% 1000 ml [Sodium Chloride 0.9% 1000 ML] 1,000 Med 03/27/18 21:13 Discontinued ml .ROUTE UD NaCl 0.9% 1000 ml [Sodium Chloride 0.9% 1000 ML] 1,000 Med 03/27/18 22:30 Active ml IV 50 mls/hr NaCl 0.9% 1000 ml [Sodium Chloride 0.9% 1000 ML] 1,000 Med 03/27/18 20:54 Discontinued ml IV 999 mls/hr NaCl 3Ml For Inhalation [Sodium Chloride 3 ML UD Med 03/27/18 21:11 Discontinued NEBULES] 6 ml IH .STK-MED ONE Oxygen NASAL CANNULA 2 lpm RT 03/27/18 22:30 Active RT Screen per Nursing Assess ONCE RT 03/28/18 00:09 Completed Respiratory Nebulizer Q4H RT 03/27/18 23:00 Active Respiratory Nebulizer STAT RT 03/27/18 20:55 Completed - Vitals & Intake/Output Vital Signs: Vital Signs Temperature 98.1 F 03/28/18 11:59 Pulse Rate 92 H 03/28/18 11:59 Respiratory Rate 18 03/28/18 11:59 Blood Pressure 122/70 03/28/18 11:59 O2 Sat by Pulse Oximetry 96 03/28/18 11:59 Oxygen-Last Documented O2 Percentage 2 Liters = 28% Intake & Output: Intake & Output 03/26/18 03/27/18 03/28/18 03/29/18 11:59 11:59 11:59 11:59 Intake Total 1124 Output Total 2250 Balance -1126 Weight 63 kg - Lab Result Diagrams: 03/27/18 21:15 03/27/18 21:15 Lab Results-Last 24 Hrs: Lab Results-Last 24 Hours 03/28/18 03/28/18 03/28/18 Range/Units 00:25 02:40 06:07 Troponin I < 0.012 < 0.012 < 0.012 (0.000-0.034) ng/mL - Procedures and Test Procedures and Tests throughout Hospitalization: Therapy Orders & Screens 03/27/18 23:00 Respiratory Nebulizer Q4H Comment: Diagnosis: Shortness of Breath 03/28/18 00:09 RT Screen per Nursing Assess ONCE Comment: Protocol Order Physician Instructions: Greater than 3 points order RT Admission Screen Reason For Exam: Triggered on Admission Diagnosis: Acute Exacerbation COPD Diagnosis: Acute Exacerbation COPD Pneumonia: No Home O2: Yes Asthma: No CHF: No Home CPAP/BIPAP: No Home Nebs/MDI: Yes Total Points: 10 - Discharge Discharge Date: 03/28/18 Disposition: Home, Self-Care Condition: Stable Prescriptions: New Levofloxacin [Levaquin] 250 mg PO DAILY #5 tablet Levofloxacin [Levofloxacin 500MG/100ML D5W] 500 mg IV QPM #0 bag Methylprednisolone Packet [Medrol Dosepack] 4 mg PO UD #30 packet Benzonatate [Tessalon Perle] 100 mg PO BID 30 Days capsule Alprazolam 1 mg [Xanax 1 mg] 1 mg PO Q8HPRN PRN #45 tablet PRN Reason: Anxiety Continue Naproxen 500 mg PO BID Levothyroxine Sodium 25 Mcg [Synthroid 25 Mcg] 25 mcg PO DAILY Omeprazole 40 mg PO DAILY Albuterol 8 gm Mdi Hfa [Ventolin Hfa MDI] 2 puffs IH Q4HPRN PRN PRN Reason: Shortness Of Breath Albuterol 2.5 mg/3 ml Neb [Proventil 2.5 mg/3 ml Neb] 1 neb IH Q4H Alprazolam 1 mg [Xanax 1 mg] 1 mg PO TID Fluoxetine HCl [Prozac] 80 mg PO DAILY #30 capsule Instructions: Exacerbation of COPD (DC) Additional Instructions: USE YOUR HOME OXYGEN ORDERED. Follow up with: GUALBERTO KOHLER [Primary Care Provider] - 04/01/18 11:00 am ([facility]) Forms: Discharge Instructions
[2018-03-28] MEDS ORDERED: Ventolin Hfa MDI IH PRN (12:40)
[2018-03-28] MEDS ORDERED: Protonix 40MG Tablet PO SCH (13:00)
[2018-03-28] MEDS ORDERED: Naprosyn 500 MG PO SCH (13:00)
[2018-03-28] MEDS ORDERED: Levofloxacin 500MG/100ML D5W 500 MG/100 ML BAG IV SCH (22:00)
== END 2018-03-28 14:14 | disposition home or self-care (01) ==
LOC: ED 20:49 → MED SURG 23:07
PROVIDERS: ADMIT General Practice; ATTEND General Practice
DX: J44.1 Chronic obstructive pulmonary disease with (acute) exacerbation (principal); J45.901 Unspecified asthma with (acute) exacerbation; Z78.9 Other specified health status; F41.9 Anxiety disorder, unspecified; M19.90 Unspecified osteoarthritis, unspecified site; Z85.41 Personal history of malignant neoplasm of cervix uteri
CPT/HCPCS: 36000; 36415; 71045; 80053; 83605; 83735; 84484; 85025; 85379; 87040; 87631; 93041; 93268; 94150; 94640; 94760; 96360; 96365; 96374; 99285; J1956; J2930; A9270-GY; G0378

== ENCOUNTER 2020-02-10 22:01 | Observation (INO) | payer MEDICARE ==
[2020-02-10] MEDS ORDERED: DUONEB 0.5-3 MG/3 ml Neb IH ONE ×2 (22:07→22:13)
[2020-02-10] MEDS ORDERED: PROVENTIL 2.5 MG/3 ML NEB IH ONE ×4 (22:07→22:36)
[2020-02-10] MEDS ORDERED: Vibramycin 100 MG PO ONE (22:10)
[2020-02-10] MEDS ORDERED: Vibramycin 100 MG ONE (22:19)
--- NOTE | 2020-02-10 22:28 | ERPHSYRPT ---
- History of Present Illness Time Seen by Provider: 02/10/20 22:02 Source: patient, EMS Exam Limitations: no limitations Physician History: The patient is a 54-year-old female with a past medical history significant for COPD, supplemental oxgyen via NC at 2 LPM, former cigarette smoker in which she quit 2 years ago, currently vaping, and congenital nystagmus presents with a chief complaint of shortness of breath. Onset reportedly was 2 weeks ago and has progressively gotten worse since that time. In addition to her complaint of shortness of breath, she also endorsed having a nonproductive cough and subjective fevers. She stated that she had the flu couple weeks ago however she was never tested for the flu. She denies chest pain and states her last hospital admission was roughly a year ago. She denies using CPAP or BiPAP and reportedly has not been endotracheally intubated for respiratory failure. Escorted to the emergency department by EMS who administered a DuoNeb in addition to 125 mg of Solu-Medrol in addition to establishing IV access prior to arrival. There is no recent travel reported outside of the country and she has no known exposures to anybody who has tested positive for COVID-19 Allergies/Adverse Reactions: morphine Allergy (Intermediate, Verified 02/10/20 22:34) Hives tramadol Adverse Reaction (Intermediate, Verified 02/11/20 00:02) Med interaction with prozac Home Medications: Levothyroxine Sodium 25 Mcg [Synthroid 25 Mcg] 25 mcg PO 0600 02/01/16 [ History] Omeprazole 40 mg PO DAILY 02/01/16 [History] Albuterol 2.5 mg/3 ml Neb [Proventil 2.5 mg/3 ml Neb] 1 neb IH Q4H PRN PRN 07/06/16 [History] Albuterol 8 gm Mdi Hfa [Ventolin Hfa MDI] 2 puffs IH Q4HPRN PRN 07/06/16 [ History] Alprazolam 1 mg [Xanax 1 mg] 1 mg PO Q8H 03/28/18 [History] Fluticasone/Umeclidin/Vilanter [Trelegy Ellipta 100-62.5-25] 1 blist PO DAILY [History] Simvastatin 20 mg PO HS 02/10/20 [History] Hx Tetanus, Diphtheria Vaccination/Date Given: Yes Hx Influenza Vaccination/Date Given: Yes Hx Pneumococcal Vaccination/Date Given: Yes - Review of Systems Constitutional: Fever, No Chills Eyes: No Symptoms Ears, Nose, & Throat: No Symptoms, Nose Congestion Respiratory: Cough, Dyspnea, Dyspnea on Exertion ([place]), Wheezing Cardiac: No Chest Pain, No Edema, No Palpitations Abdominal/Gastrointestinal: No Abdominal Pain, No Nausea, No Vomiting Musculoskeletal: No Symptoms Skin: No Symptoms Neurological: No Symptoms Psychological: No Symptoms Endocrine: No Symptoms All Other Systems: Reviewed and Negative - Past Medical History Pertinent Past Medical History: Yes Neurological History: Seizures, Other ENT History: Other Cardiac History: No Pertinent History Respiratory History: COPD Endocrine Medical History: Hypothyroidism Musculoskeletal History: Osteoarthritis, Other GI Medical History: Gallbladder Disease, Hemorrhoids History: No Pertinent History Psycho-Social History: Anxiety, Depression, Panic Disorder Female Reproductive Disorders: Cervical Cancer, Vaginal Cancer Other Medical History: SEROTONIN SYNDROME HX; HYSTERECTOMY, PARTIAL VULVECTOMY D /T CERVICAL CA; R KNEE 'SCOPE, R WRIST SX; SPINAL ; PT. USES 2L O2 ART NIGHT AND DURING THE DAY PRN. - Past Surgical History Past Surgical History: Yes Neuro Surgical History: No Pertinent History Cardiac: No Pertinent History Respiratory: No Pertinent History Gastrointestinal: Cholecystectomy Genitourinary: No Pertinent History Musculoskeletal: Orthopedic Surgery Female Surgical History: Hysterectomy, Dilation & Curettage, Other Other Surgical History: partial vulvectomy , rt hand surgery, epidural for back pain cerviacl cancer-removed around cervix,rt knee surgery - Social History Smoking Status: Former smoker How long have you smoked: 30 years Exposure to second hand smoke: Yes Drug Use: none Patient Lives Alone: No - Nursing Vital Signs Nursing Vital Signs: Initial Vital Signs Respiratory Rate 28 H 02/10/20 22:04 O2 Sat by Pulse Oximetry 98 02/10/20 22:04 Pain Scale Pain Intensity 0 - Physical Exam General Appearance: moderate distress, alert, thin Eye Exam: PERRL/EOMI, eyes nml inspection, EOM palsy/anisocoria, other ( Nystagmus ), No scleral icterus, No pale conjunctivae, No photophobia Ears, Nose, Throat Exam: normal ENT inspection, TMs normal, pharynx normal, No TM abnormal (R), No TM abnormal (L), No pharyngeal erythema, No tonsillar exudate Neck Exam: normal inspection, non-tender, supple Respiratory Exam: respiratory distress, diminished breath sounds, prolonged expirations, wheezing, other (Speaking in fragmented sentences), No rhonchi Cardiovascular Exam: regular rate/rhythm, normal heart sounds, normal peripheral pulses, capillary refill <2 sec, No murmur, No friction rub, No gallop, No tachycardia, No edema, No pulse deficit Gastrointestinal/Abdomen Exam: soft, No tenderness, No distention, No mass Pelvic Exam: not done Rectal Exam: deferred Back Exam: normal inspection Extremity Exam: normal inspection, other (No asymmetric lower extremity edema or swelling to suggest DVT.) Neurologic Exam: alert, oriented x 3, normal mood/affect, No cooperative Skin Exam: normal color, warm, dry, No rash, No petechiae, No jaundice, No abrasion SpO2 Interpretation: normal SpO2: 98 O2 Delivery: Nasal Cannula - Course Nursing assessment & vital signs reviewed: Yes EKG Interpreted by Me: RATE, Sinus Rhythm, Left [place] Deviation, NORMAL INTERVALS , Other (Artifact noted. Sinus rhythm) - Radiology Exams Chest X-ray Interpretation: Interpreted by me, Reviewed by me (Pneumonia or pleural effusion. Hyperexpansion and changes consistent with obstructive lung disease.) Ordered Tests: Active Orders 24 hr Category Date Time Status Up With Assistance ROUTINE Activity 02/10/20 23:43 Active Commercial Property Manager STAT Care 02/10/20 22:08 Completed Code Status Order ROUTINE Care 02/10/20 23:43 Active EKG-ER Only STAT Care 02/10/20 22:07 Completed IV Care Q6H Care 02/10/20 23:43 Active IV Insertion STAT Care 02/10/20 22:[address] in Observation ROUTINE Care 02/10/20 23:28 Active Pulse Oximetry (ED) STAT Care 02/10/20 22:07 Completed Marlon Tatum ROUTINE Care 02/10/20 23:43 Active Vital Signs Q4H Care 02/10/20 23:43 Active Weight,Daily 0600 Care 02/10/20 23:43 Active Regular Diet Diet 02/10/20 Breakfast Active CHEST 2 VIEWS (PA AND LAT) Stat Exams 02/10/20 22:08 Taken BMP AM.LAB Lab 02/11/20 04:15 Completed BMP Stat Lab 02/10/20 22:25 Completed CBC AM.LAB Lab 02/11/20 04:15 Completed CBC W DIFF Stat Lab 02/10/20 22:25 Completed NT PRO BNP Stat Lab 02/10/20 22:25 Completed TROPONIN Stat Lab 02/10/20 22:25 Completed VENOUS BLOOD GAS Stat Lab 02/10/20 22:20 Completed Oxygen Nasal Cannula 2 lpm RT 02/10/20 23:43 Active Peak Expiratory Flow Rate BEFORE&AFTER NEB TX RT 02/10/20 23:43 Active Pulse Oximetry CONTINUOUS RT 02/10/20 23:43 Active Respiratory Therapy Consult ROUTINE RT 02/10/20 23:43 Completed Medication Summary Generic Name Dose Route Start Last Admin Trade Name Freq PRN Reason Stop Dose Admin Albuterol Sulfate 2.5 mg 02/11/20 01:00 02/11/20 04:54 Proventil 2.5 Mg/3 Ml Neb IH 03/12/20 00:59 2.5 mg Q4HRT BREA Administration Albuterol/Ipratropium 3 ml 02/11/20 03:00 02/11/20 06:44 Duoneb 0.5-3 Mg/3 Ml Neb IH 03/12/20 02:59 3 ml Q4HRT BREA Administration Doxycycline Hyclate 100 mg 02/11/20 10:00 Vibramycin 100 Mg PO 03/12/20 09:59 BID BREA Enoxaparin Sodium 40 mg 02/11/20 10:00 Enoxaparin Sodium SQ 03/12/20 09:59 DAILY BREA Methylprednisolone Sodium Succinate 80 mg 02/11/20 00:00 02/11/20 04:07 Solu-Medrol 125 Mg IV 03/12/20 00:00 80 mg Q6HT BREA Administration Patient Own Med : 1 each 02/11/20 07:00 02/11/20 06:44 Trelegy 100mcg/62. IH 03/12/20 06:59 1 each 5mcg/25 Mcg DAILY BREA Administration Discontinued Medications Generic Name Dose Route Start Last Admin Trade Name Freq PRN Reason Stop Dose Admin Albuterol Sulfate 2.5 mg 02/10/20 22:07 02/10/20 22:31 Proventil 2.5 Mg/3 Ml Neb IH 02/10/20 22:08 2.5 mg STAT ONE Administration Albuterol Sulfate 2.5 mg 02/10/20 22:09 02/10/20 22:38 Proventil 2.5 Mg/3 Ml Neb IH 02/10/20 22:10 2.5 mg STAT ONE Administration Albuterol Sulfate Confirm 02/10/20 22:13 Proventil 2.5 Mg/3 Ml Neb Administered 02/10/20 22:14 Dose 2.5 mg IH .STK-MED ONE Albuterol Sulfate Confirm 02/10/20 22:36 Proventil 2.5 Mg/3 Ml Neb Administered 02/10/20 22:37 Dose 2.5 mg IH .STK-MED ONE Albuterol Sulfate 2.5 mg 02/11/20 03:00 Proventil 2.5 Mg/3 Ml Neb IH 02/11/20 00:03 Q4HRT BREA Albuterol Sulfate Confirm 02/11/20 00:26 Proventil 2.5 Mg/3 Ml Neb Administered 02/11/20 00:27 Dose 2.5 mg IH .STK-MED ONE Albuterol/Ipratropium 3 ml 02/10/20 22:07 02/10/20 22:15 Duoneb 0.5-3 Mg/3 Ml Neb IH 02/10/20 22:08 3 ml STAT ONE Administration Albuterol/Ipratropium Confirm 02/10/20 22:13 Duoneb 0.5-3 Mg/3 Ml Neb Administered 02/10/20 22:14 Dose 3 ml IH .STK-MED ONE Doxycycline Hyclate 100 mg 02/10/20 22:10 02/10/20 22:20 Vibramycin 100 Mg PO 02/10/20 22:11 100 mg STAT ONE Administration Doxycycline Hyclate Confirm 02/10/20 22:19 Vibramycin 100 Mg Administered 02/10/20 22:20 Dose 100 mg .ROUTE .STK-MED ONE Lab/Rad Data: Laboratory Result Diagrams 02/10/20 22:25 02/10/20 22:25 Laboratory Results 02/10/20 02/10/20 02/10/20 Range/Units 22:25 22:25 22:25 WBC (4.0-10.5) K/mm3 RBC (4.1-5.4) M/mm3 Hgb (12.0-16.0) gm/dl Hct (35-47) % MCV (78-100) fl MCH (26-32) pg MCHC (32-36) g/dl RDW (11.5-14.0) % Plt Count (150-450) K/mm3 MPV (7.5-11.0) fl Gran % (36.0-66.0) % Eos # (Auto) (0-0.5) Absolute Lymphs (auto) (1.0-4.6) Absolute Monos (auto) (0.0-1.3) Lymphocytes % (24.0-44.0) % Monocytes % (0.0-12.0) % Eosinophils % (0.00-5.0) % Basophils % (0.0-0.4) % Absolute Granulocytes (1.4-6.9) Basophils # (0-0.4) pO2/FiO2 Ratio % VBG pH (7.32-7.42) VBG pCO2 at Pat Temp (42-55) mm/Hg VBG pO2 at Pat Temp (25-40) mm/Hg VBG HCO3 (22-28) meq/L VBG O2 Sat (Z[place]ida) (95-100) VBG Base Excess (-2.0-2.0) VBG Hemoglobin VBG Carboxyhemoglobin (0.0-6.9) % T HGB POC Potassium (3.5-5.1) Sodium 142 (137-145) mmol/L Potassium 3.6 (3.5-5.1) mmol/L Chloride 102 (98-107) mmol/L Carbon Dioxide 32 H (22-30) mmol/L Anion Gap 10.8 (5-15) MEQ/L BUN 3 L (7-17) mg/dL Creatinine 0.67 (0.52-1.04) mg/dL Estimated GFR > 60.0 ML/MIN Glucose 115 H (74-106) mg/dL Calcium 8.7 (8.4-10.2) mg/dL Troponin I < 0.012 (0.000-0.034) ng/mL NT-Pro-B Natriuret Pep 98.7 (0-900) pg/mL Influenza Type A Ag NEGATIVE (NEGATIVE) Influenza Type B Ag NEGATIVE (NEGATIVE) RSV (PCR) NEGATIVE (Negative) 02/10/20 02/10/20 Range/Units 22:25 22:20 WBC 6.5 (4.0-10.5) K/mm3 RBC 4.93 (4.1-5.4) M/mm3 Hgb 14.8 (12.0-16.0) gm/dl Hct 45.0 (35-47) % MCV 91.3 (78-100) fl MCH 30.0 (26-32) pg MCHC 32.9 (32-36) g/dl RDW 12.6 (11.5-14.0) % Plt Count 327 (150-450) K/mm3 MPV 8.9 (7.5-11.0) fl Gran % 48.8 (36.0-66.0) % Eos # (Auto) 0.18 (0-0.5) Absolute Lymphs (auto) 2.60 (1.0-4.6) Absolute Monos (auto) 0.52 (0.0-1.3) Lymphocytes % 40.2 (24.0-44.0) % Monocytes % 8.0 (0.0-12.0) % Eosinophils % 2.8 (0.00-5.0) % Basophils % 0.2 (0.0-0.4) % Absolute Granulocytes 3.16 (1.4-6.9) Basophils # 0.01 (0-0.4) pO2/FiO2 Ratio 36.0 % VBG pH 7.33 (7.32-7.42) VBG pCO2 at Pat Temp 70 H* (42-55) mm/Hg VBG pO2 at Pat Temp 34 (25-40) mm/Hg VBG HCO3 36.9 H* (22-28) meq/L VBG O2 Sat (Zenaida) 62.6 L (95-100) VBG Base Excess 8.3 H (-2.0-2.0) VBG Hemoglobin 15.5 VBG Carboxyhemoglobin 1.8 (0.0-6.9) % T HGB POC Potassium 3.9 (3.5-5.1) Sodium (137-145) mmol/L Potassium (3.5-5.1) mmol/L Chloride (98-107) mmol/L Carbon Dioxide (22-30) mmol/L Anion Gap (5-15) MEQ/L BUN (7-17) mg/dL Creatinine (0.52-1.04) mg/dL Estimated GFR ML/MIN Glucose (74-106) mg/dL Calcium (8.4-10.2) mg/dL Troponin I (0.000-0.034) ng/mL NT-Pro-B Natriuret Pep (0-900) pg/mL Influenza Type A Ag (NEGATIVE) Influenza Type B Ag (NEGATIVE) RSV (PCR) (Negative) - Progress Progress: improved Progress Note: 02/10/20 22:30 Toxic in appearance. The patient clinically seems to be suffering from a COPD exacerbation. I will had and and administer serial nebs days she will likely need to be admitted for ongoing evaluation and treatment. Labs, x-ray, EKG are currently pending. Chest x-ray will be ordered to eval for evidence of pneumonia, pneumothorax, or pleural effusion. Labs to include cardiac markers will be checked eval for evidence of anemia, signs of infection, or signs of myocardial ischemia. Oral antibiotics with doxycycline should suffice at this time. 02/10/20 23:01 The patient was unable to register on the peak flow meter on initial presentation but after receiving serial labs she registered a value of 20. She stated she was feeling a little bit better however she still had markedly diminished lung sounds bilaterally with fine expiratory wheezing noted more so in the right lower lobe and upper lobe. She had no hypoxia on supplemental oxygen, specifically at 2 L/min via nasal cannula. Chest x-ray is currently pending. VBG values were reviewed and it appears the patient has a compensated respiratory acidosis. 02/10/20 23:[address] Finney, PCP, and discussed the case with her. She agreed with admission for observation and recommended admitting to Dr. Jacob since she wants to stay at [facility]. 02/10/20 23:36 Dated the patient with the plan for admission for observation for a COPD exacerbation. And with this plan and was updated with her work-up findings. CODE STATUS was broached and she stated that she is a full code and would like to undergo endotracheal intubation if need be for respiratory failure. 02/11/20 07:[address] Jacob and discussed the case with him. He agreed to see the patient today during her admission for further evaluation and management. Discussed with : Marissa Brice Will see patient in: hospital (observation) Counseled pt/family regarding: lab results, diagnosis, rad results, smoking cessation - Departure Departure Disposition: Home, Observation Clinical Impression: COPD with exacerbation, Current vaping on some days, Hypercapnia Condition: Stable Critical Care Time: No
[2020-02-10 22:34] LABS: Absolute Neutrophil Ct (ANC) 3.16 (1.4-6.9); BASOPHIL % 0.2 % (0.0-0.4); Basophil (Absolute #) 0.01 (0-0.4); Eosinophil % 2.8 % (0.00-5.0); Eosinophil (Absolute #) 0.18 (0-0.5); Hemoglobin 14.8 gm/dl (12.0-16.0); Lymphocytes % 40.2 % (24.0-44.0); Mean Cell Volume 91.3 fl (78-100); Mean Corpuscular Hgb Concent. 32.9 g/dl (32-36); Mean Platelet Volume 8.9 fl (7.5-11.0); Monocyte (Absolute #) 0.52 (0.0-1.3); Neutrophil % 48.8 % (36.0-66.0); Platelet Count 327 K/mm3 (150-450); Red Blood Count 4.93 M/mm3 (4.1-5.4); Red Cell Distribution Width 12.6 % (11.5-14.0); White Blood Count 6.5 K/mm3 (4.0-10.5)
[2020-02-10 22:34] LABS: VBG BASE EXCESS 8.3 (-2.0-2.0); VBG CARBOXYHEMOGLOBIN 1.8 % T HGB (0.0-6.9); VBG HCO3- 36.9 meq/L (22-28); VBG HEMOGLOBIN 15.5; VBG O2 SATURATION 62.6 (95-100); VBG POTASSIUM 3.9 (3.5-5.1); VBG pH 7.33 (7.32-7.42)
[2020-02-10 22:55] LABS: NT PRO BNP 98.7 pg/mL (0-900)
[2020-02-10 22:56] LABS: TROPONIN < 0.012 ng/mL (0.000-0.034)
[2020-02-10 23:04] LABS: INFLUENZA A NEGATIVE (NEGATIVE); INFLUENZA B NEGATIVE (NEGATIVE); RESPIRATORY SYNCTIAL VIRUS NEGATIVE (Negative)
[2020-02-10 23:06] LABS: ANION GAP 10.8 MEQ/L (5-15); BLOOD UREA NITROGEN 3 mg/dL (7-17); CHLORIDE 102 mmol/L (98-107); Calcium 8.7 mg/dL (8.4-10.2); Carbon Dioxide 32 mmol/L (22-30); Creatinine 1 0.67 mg/dL (0.52-1.04); Glucose 115 mg/dL (74-106); Potassium 3.6 mmol/L (3.5-5.1); SODIUM 142 mmol/L (137-145)
[2020-02-11] MEDS ORDERED: PROVENTIL 2.5 MG/3 ML NEB IH ONE (00:26)
[2020-02-11] MEDS: PROVENTIL 2.5 MG/3 ML NEB IH SCH ×4 (00:42→12:55)
[2020-02-11] MEDS: DUONEB 0.5-3 MG/3 ml Neb IH SCH ×3 (02:48→11:18)
[2020-02-11] MEDS ORDERED: PROVENTIL 2.5 MG/3 ML NEB IH SCH (03:00)
[2020-02-11] MEDS: solu-MEDROL 125 MG IV SCH ×3 (04:07→11:33)
[2020-02-11 04:34] LABS: Hematocrit 42.9 % (35-47); Hemoglobin 13.8 gm/dl (12.0-16.0); Mean Cell Volume 92.9 fl (78-100); Mean Corpuscular Hemoglobin 29.9 pg (26-32); Mean Corpuscular Hgb Concent. 32.2 g/dl (32-36); Platelet Count 284 K/mm3 (150-450); Red Blood Count 4.62 M/mm3 (4.1-5.4); Red Cell Distribution Width 12.8 % (11.5-14.0); White Blood Count 6.9 K/mm3 (4.0-10.5)
[2020-02-11 04:43] LABS: ANION GAP 15.3 MEQ/L (5-15); BLOOD UREA NITROGEN 5 mg/dL (7-17); CHLORIDE 98 mmol/L (98-107); Calcium 8.9 mg/dL (8.4-10.2); Carbon Dioxide 30 mmol/L (22-30); Creatinine 1 0.65 mg/dL (0.52-1.04); Glucose 239 mg/dL (74-106); Potassium 3.9 mmol/L (3.5-5.1); SODIUM 140 mmol/L (137-145)
[2020-02-11] MEDS ORDERED: PATIENT OWN MEDICATION IH SCH (07:00)
--- NOTE | 2020-02-11 08:37 | XRAY ---
Indication: Productive cough. Dyspnea. COPD. Comparison: March 27, 2018. PA/lateral chest remains hyperinflated and clear again with a few incidental calcified granulomas. Heart is not enlarged. Bony thorax intact again with minimal degenerative changes. Impression: Stable nonacute hyperinflated chest with chronic features.
--- NOTE | 2020-02-11 08:37 | XRAY ---
Indication: COPD exacerbation. Comparison: One day earlier. AP/lateral chest unchanged again hyperinflated and clear with incidental calcified granulomas. Heart and mediastinal structures within normal limits. No new/acute findings.
[2020-02-11] MEDS ORDERED: ENOXAPARIN SODIUM SQ SCH (10:00)
[2020-02-11] MEDS ORDERED: Vibramycin 100 MG PO SCH (10:00)
[2020-02-11] MEDS ORDERED: SYNTHROID 25 MCG PO SCH (11:00)
[2020-02-11] MEDS ORDERED: Prozac 20 MG PO SCH (11:00)
[2020-02-11] MEDS ORDERED: XANAX 1 MG PO ONE (11:15)
[2020-02-11 11:21] VITALS: PULSE 98; O2SAT 97
[2020-02-11 11:58] VITALS: BP 127/76
[2020-02-11] MEDS ORDERED: ZOCOR 20MG PO SCH (22:00)
[2020-02-11] MEDS ORDERED: XANAX 1 MG PO SCH (22:00)
[2020-02-12] MEDS ORDERED: Protonix 40MG Tablet PO SCH (10:00)
[2020-02-12] MEDS ORDERED: FLUOXETINE HCL 80 MG PO SCH (10:00)
--- NOTE | 2020-02-13 10:15 | PCM.SSS ---
History of Present Illness - Chief Complaint Chief Complaint: c/o shortness of breath for 1-2 days History of Present Illness: is a 54 year old female with a past medical history significant for COPD, supplemental oxgyen via NC at 2 LPM, former cigarette smoker in which she quit 2 years ago, currently vaping, and congenital nystagmus presents with a chief complaint of shortness of breath. Onset reportedly was 2 weeks ago and has progressively gotten worse since that time. In addition to her complaint of shortness of breath, she also endorsed having a nonproductive cough and subjective fevers. She stated that she had the flu couple weeks ago however she was never tested for the flu. She denies chest pain and states her last hospital admission was roughly a year ago. She denies using CPAP or BiPAP and reportedly has not been endotracheally intubated for respiratory failure. Escorted to the emergency department by EMS who administered a DuoNeb in addition to 125 mg of Solu-Medrol in addition to establishing IV access prior to arrival. There is no recent travel reported outside of the country and she has no known exposures to anybody who has tested positive for COVID-19 - Review of Systems Constitutional: No Fever, No Chills Eyes: No Symptoms Ears, Nose, & Throat: No Symptoms Respiratory: Orthopnea, Short Of Breath, Wheezing, No Cough Cardiac: No Chest Pain, No Edema, No Syncope Abdominal/Gastrointestinal: No Abdominal Pain, No Nausea, No Vomiting, No Diarrhea Genitourinary Symptoms: No Dysuria Musculoskeletal: No Back Pain, No Neck Pain Skin: No Rash Neurological: No Dizziness, No Focal Weakness, No Sensory Changes Psychological: No Symptoms Endocrine: No Symptoms Hematologic/Lymphatic: No Symptoms Immunological/Allergic: No Symptoms Medications & Allergies Home Medications: Home Medication List Levothyroxine Sodium 25 Mcg [Synthroid 25 Mcg] 25 mcg PO 0600 02/01/16 [ History Confirmed 02/11/20] Omeprazole 40 mg PO DAILY 02/01/16 [History Confirmed 02/10/20] Albuterol 2.5 mg/3 ml Neb [Proventil 2.5 mg/3 ml Neb] 1 neb IH Q4H PRN PRN 07/06/16 [History Confirmed 02/11/20] Albuterol 8 gm Mdi Hfa [Ventolin Hfa MDI] 2 puffs IH Q4HPRN PRN 07/06/16 [ History Confirmed 02/10/20] Alprazolam 1 mg [Xanax 1 mg] 1 mg PO Q8H 03/28/18 [History Confirmed 02/10] Fluoxetine HCl [Prozac] 80 mg PO DAILY #30 capsule 03/28/18 [Rx Confirmed ] Fluticasone/Umeclidin/Vilanter [Trelegy Ellipta 100-62.5-25] 1 blist PO DAILY [History Confirmed 02/10/20] Simvastatin 20 mg PO HS 02/10/20 [History Confirmed 02/10/20] Allergies/Adverse Reactions: Allergies Allergy/AdvReac Type Severity Reaction Status Date / Time morphine Allergy Intermediate Hives Verified 02/10/20 22:34 tramadol AdvReac Intermediate Verified 02/11/20 00:02 - Past Medical History Past Medical History: Yes Neurological History: Seizures, Other ENT History: Other Cardiac History: No Pertinent History Respiratory History: COPD Endocrine Medical History: Hypothyroidism Musculoskelatal History: Osteoarthritis, Other GI Medical History: Gallbladder Disease, Hemorrhoids History: No Pertinent History Pyscho-Social History: Anxiety, Depression, Panic Disorder Reproductive Disorders: Cervical Cancer, Vaginal Cancer Comment: SEROTONIN SYNDROME HX; HYSTERECTOMY, PARTIAL VULVECTOMY D/T CERVICAL CA ; R KNEE 'SCOPE, R WRIST SX; SPINAL ; PT. USES 2L O2 ART NIGHT AND DURING THE DAY PRN. - Female History Hx Last Menstrual Period: POST - Past Surgical History Past Surgical History: Yes Neuro Surgical History: No Pertinent History Cardiac History: No Pertinent History Respiratory Surgery: No Pertinent History GI Surgical History: Cholecystectomy Genitourinary Surgical Hx: No Pertinent History Musculskeletal Surgical Hx: Orthopedic Surgery Female Surgical History: Hysterectomy, Dilation & Curettage, Other Other Surgical History: partial vulvectomy , rt hand surgery, epidural for back pain cerviacl cancer-removed around cervix,rt knee surgery - Social History Smoking Status: Former smoker How long have you smoked: 30 years Exposure to second hand smoke: Yes Alcohol: None Drug Use: none - Physical Exam General Appearance: no apparent distress, alert Neurologic Exam: alert, oriented x 3, cooperative, normal mood/affect, nml cerebellar function, nml station & gait, sensation nml, No motor deficits Eye Exam: PERRL/EOMI, eyes nml inspection Ears, Nose, Throat Exam: normal ENT inspection, TMs normal, pharynx normal, moist mucous membranes Neck Exam: normal inspection, non-tender, supple, full range of motion Respiratory Exam: diminished breath sounds, crackles/rales, rhonchi, wheezing, No respiratory distress Cardiovascular Exam: regular rate/rhythm, normal heart sounds, normal peripheral pulses Gastrointestinal/Abdomen Exam: soft, normal bowel sounds, No tenderness, No mass Back Exam: normal inspection, normal range of motion, No CVA tenderness, No vertebral tenderness Extremity Exam: normal inspection, normal range of motion, pelvis stable Skin Exam: normal color, warm, dry, No rash Lymphatic Exam: No adenopathy Assessment/Plan (1) COPD with exacerbation Status: Acute Assessment & Plan: Chief Complaint Diagnosis COPD exacerbation Allergies Allergy/AdvReac Type Severity Reaction Status Date / Time morphine Allergy Intermediate Hives Verified 02/10/20 22:34 tramadol AdvReac Intermediate Verified 02/11/20 00:02 Home Medications Medication Instructions Recorded Confirmed Last Taken Type Fluticasone/Umeclidin/Vilanter 1 blist PO DAILY 02/10/20 02/10/20 02/10/20 History [Trelegy Ellipta 100-62.5-25] Simvastatin 20 mg PO HS 02/10/20 02/10/20 02/09/20 History Current Medications Discontinued Medications Generic Name Dose Route Start Last Admin Trade Name Freq PRN Reason Stop Dose Admin Albuterol Sulfate 2.5 mg 02/10/20 22:07 02/10/20 22:31 Proventil 2.5 Mg/3 Ml Neb IH 02/10/20 22:08 2.5 mg STAT ONE Administration Albuterol Sulfate 2.5 mg 02/10/20 22:09 02/10/20 22:38 Proventil 2.5 Mg/3 Ml Neb IH 02/10/20 22:10 2.5 mg STAT ONE Administration Albuterol Sulfate Confirm 02/10/20 22:13 Proventil 2.5 Mg/3 Ml Neb Administered 02/10/20 22:14 Dose 2.5 mg IH .STK-MED ONE Albuterol Sulfate Confirm 02/10/20 22:36 Proventil 2.5 Mg/3 Ml Neb Administered 02/10/20 22:37 Dose 2.5 mg IH .STK-MED ONE Albuterol Sulfate 2.5 mg 02/11/20 03:00 Proventil 2.5 Mg/3 Ml Neb IH 02/11/20 00:03 Q4HRT BREA Albuterol Sulfate 2.5 mg 02/11/20 01:00 02/11/20 12:55 Proventil 2.5 Mg/3 Ml Neb IH 03/12/20 00:59 Not Given Q4HRT BREA Albuterol Sulfate Confirm 02/11/20 00:26 Proventil 2.5 Mg/3 Ml Neb Administered 02/11/20 00:27 Dose 2.5 mg IH .STK-MED ONE Albuterol/Ipratropium 3 ml 02/10/20 22:07 02/10/20 22:15 Duoneb 0.5-3 Mg/3 Ml Neb IH 02/10/20 22:08 3 ml STAT ONE Administration Albuterol/Ipratropium Confirm 02/10/20 22:13 Duoneb 0.5-3 Mg/3 Ml Neb Administered 02/10/20 22:14 Dose 3 ml IH .STK-MED ONE Albuterol/Ipratropium 3 ml 02/11/20 03:00 02/11/20 11:18 Duoneb 0.5-3 Mg/3 Ml Neb IH 03/12/20 02:59 3 ml Q4HRT BREA Administration Alprazolam 1 mg 02/11/20 22:00 Xanax 1 Mg PO 03/12/20 21:59 Q8HT BREA Alprazolam 1 mg 02/11/20 11:15 02/11/20 11:32 Xanax 1 Mg PO 02/11/20 11:16 1 mg NOW ONE Administration Doxycycline Hyclate 100 mg 02/10/20 22:10 02/10/20 22:20 Vibramycin 100 Mg PO 02/10/20 22:11 100 mg STAT ONE Administration Doxycycline Hyclate Confirm 02/10/20 22:19 Vibramycin 100 Mg Administered 02/10/20 22:20 Dose 100 mg .ROUTE .STK-MED ONE Doxycycline Hyclate 100 mg 02/11/20 10:00 02/11/20 10:12 Vibramycin 100 Mg PO 03/12/20 09:59 100 mg BID BREA Administration Enoxaparin Sodium 40 mg 02/11/20 10:00 02/11/20 10:13 Enoxaparin Sodium SQ 03/12/20 09:59 40 mg DAILY BREA Administration Fluoxetine HCl 80 mg 02/11/20 11:00 02/11/20 11:33 Prozac 20 Mg PO 03/12/20 10:59 80 mg DAILY BREA Administration Levothyroxine Sodium 25 mcg 02/11/20 11:00 02/11/20 11:33 Synthroid 25 Mcg PO 03/12/20 10:59 25 mcg 0600 BREA Administration Methylprednisolone Sodium Succinate 80 mg 02/11/20 00:00 02/11/20 11:33 Solu-Medrol 125 Mg IV 03/12/20 00:00 80 mg Q6HT BREA Administration Pantoprazole Sodium 40 mg 02/12/20 10:00 Protonix 40mg Tablet PO 03/13/20 09:59 DAILY BREA Patient Own Med : 1 each 02/11/20 07:00 02/11/20 06:44 Trelegy 100mcg/62. IH 03/12/20 06:59 1 each 5mcg/25 Mcg DAILY BREA Administration Simvastatin 20 mg 02/11/20 22:00 Zocor 20mg PO 03/12/20 21:59 HS [facility] Intake & Output (Last 24 hours) 02/10/20 02/11/20 02/12/20 02/13/20 11:59 11:59 11:59 11:59 Intake Total 880 240 Output Total 150 Balance 730 240 Weight 68.4 kg Orders (Last 24 hours) Category Date Time Status PANTOPRAZOLE 40 mg Tablet [Protonix 40MG Tablet] Med 02/12/20 10:00 Discontinued 40 mg PO DAILY Code(s): J44.1 - CHRONIC OBSTRUCTIVE PULMONARY DISEASE W (ACUTE) EXACERBATION Hospital Summary - Hospital Course Hospital Course: Last Vital Signs Temp 98.3 F 02/11/20 11:57 Pulse 98 H 02/11/20 11:57 Resp 18 02/11/20 11:57 BP 127/76 02/11/20 11:57 Pulse Ox 97 02/11/20 11:57 Allergies morphine Allergy (Intermediate, Verified 02/10/20 22:34) Hives tramadol Adverse Reaction (Intermediate, Verified 02/11/20 00:02) Med interaction with prozac Intake & Output 02/12/20 02/13/20 11:59 11:59 Intake Total 240 Balance 240 Laboratory Results 02/11/20 02/11/20 02/10/20 Range/Units 04:15 04:15 22:25 WBC 6.9 (4.0-10.5) K/mm3 RBC 4.62 (4.1-5.4) M/mm3 Hgb 13.8 (12.0-16.0) gm/dl Hct 42.9 (35-47) % MCV 92.9 (78-100) fl MCH 29.9 (26-32) pg MCHC 32.2 (32-36) g/dl RDW 12.8 (11.5-14.0) % Plt Count 284 (150-450) K/mm3 MPV 9.0 (7.5-11.0) fl Gran % (36.0-66.0) % Eos # (Auto) (0-0.5) Absolute Lymphs (auto) (1.0-4.6) Absolute Monos (auto) (0.0-1.3) Lymphocytes % (24.0-44.0) % Monocytes % (0.0-12.0) % Eosinophils % (0.00-5.0) % Basophils % (0.0-0.4) % Absolute Granulocytes (1.4-6.9) Basophils # (0-0.4) pO2/FiO2 Ratio % VBG pH (7.32-7.42) VBG pCO2 at Pat Temp (42-55) mm/Hg VBG pO2 at Pat Temp (25-40) mm/Hg VBG HCO3 (22-28) meq/L VBG O2 Sat (Zenaida) (95-100) VBG Base Excess (-2.0-2.0) VBG Hemoglobin VBG Carboxyhemoglobin (0.0-6.9) % T HGB POC Potassium (3.5-5.1) Sodium 140 142 (137-145) mmol/L Potassium 3.9 3.6 (3.5-5.1) mmol/L Chloride 98 102 (98-107) mmol/L Carbon Dioxide 30 32 H (22-30) mmol/L Anion Gap 15.3 H 10.8 (5-15) MEQ/L BUN 5 L 3 L (7-17) mg/dL Creatinine 0.65 0.67 (0.52-1.04) mg/dL Estimated GFR > 60.0 > 60.0 ML/MIN Glucose 239 H 115 H (74-106) mg/dL Calcium 8.9 8.7 (8.4-10.2) mg/dL Troponin I (0.000-0.034) ng/mL NT-Pro-B Natriuret Pep (0-900) pg/mL Influenza Type A Ag (NEGATIVE) Influenza Type B Ag (NEGATIVE) RSV (PCR) (Negative) 02/10/20 02/10/20 02/10/20 Range/Units 22:25 22:25 22:25 WBC 6.5 (4.0-10.5) K/mm3 RBC 4.93 (4.1-5.4) M/mm3 Hgb 14.8 (12.0-16.0) gm/dl Hct 45.0 (35-47) % MCV 91.3 (78-100) fl MCH 30.0 (26-32) pg MCHC 32.9 (32-36) g/dl RDW 12.6 (11.5-14.0) % Plt Count 327 (150-450) K/mm3 MPV 8.9 (7.5-11.0) fl Gran % 48.8 (36.0-66.0) % Eos # (Auto) 0.18 (0-0.5) Absolute Lymphs (auto) 2.60 (1.0-4.6) Absolute Monos (auto) 0.52 (0.0-1.3) Lymphocytes % 40.2 (24.0-44.0) % Monocytes % 8.0 (0.0-12.0) % Eosinophils % 2.8 (0.00-5.0) % Basophils % 0.2 (0.0-0.4) % Absolute Granulocytes 3.16 (1.4-6.9) Basophils # 0.01 (0-0.4) pO2/FiO2 Ratio % VBG pH (7.32-7.42) VBG pCO2 at Pat Temp (42-55) mm/Hg VBG pO2 at Pat Temp (25-40) mm/Hg VBG HCO3 (22-28) meq/L VBG O2 Sat (Zenaida) (95-100) VBG Base Excess (-2.0-2.0) VBG Hemoglobin VBG Carboxyhemoglobin (0.0-6.9) % T HGB POC Potassium (3.5-5.1) Sodium (137-145) mmol/L Potassium (3.5-5.1) mmol/L Chloride (98-107) mmol/L Carbon Dioxide (22-30) mmol/L Anion Gap (5-15) MEQ/L BUN (7-17) mg/dL Creatinine (0.52-1.04) mg/dL Estimated GFR ML/MIN Glucose (74-106) mg/dL Calcium (8.4-10.2) mg/dL Troponin I < 0.012 (0.000-0.034) ng/mL NT-Pro-B Natriuret Pep 98.7 (0-900) pg/mL Influenza Type A Ag NEGATIVE (NEGATIVE) Influenza Type B Ag NEGATIVE (NEGATIVE) RSV (PCR) NEGATIVE (Negative) 02/10/20 Range/Units 22:20 WBC (4.0-10.5) K/mm3 RBC (4.1-5.4) M/mm3 Hgb (12.0-16.0) gm/dl Hct (35-47) % MCV (78-100) fl MCH (26-32) pg MCHC (32-36) g/dl RDW (11.5-14.0) % Plt Count (150-450) K/mm3 MPV (7.5-11.0) fl Gran % (36.0-66.0) % Eos # (Auto) (0-0.5) Absolute Lymphs (auto) (1.0-4.6) Absolute Monos (auto) (0.0-1.3) Lymphocytes % (24.0-44.0) % Monocytes % (0.0-12.0) % Eosinophils % (0.00-5.0) % Basophils % (0.0-0.4) % Absolute Granulocytes (1.4-6.9) Basophils # (0-0.4) pO2/FiO2 Ratio 36.0 % VBG pH 7.33 (7.32-7.42) VBG pCO2 at Pat Temp 70 H* (42-55) mm/Hg VBG pO2 at Pat Temp 34 (25-40) mm/Hg VBG HCO3 36.9 H* (22-28) meq/L VBG O2 Sat (Zenaida) 62.6 L (95-100) VBG Base Excess 8.3 H (-2.0-2.0) VBG Hemoglobin 15.5 VBG Carboxyhemoglobin 1.8 (0.0-6.9) % T HGB POC Potassium 3.9 (3.5-5.1) Sodium (137-145) mmol/L Potassium (3.5-5.1) mmol/L Chloride (98-107) mmol/L Carbon Dioxide (22-30) mmol/L Anion Gap (5-15) MEQ/L BUN (7-17) mg/dL Creatinine (0.52-1.04) mg/dL Estimated GFR ML/MIN Glucose (74-106) mg/dL Calcium (8.4-10.2) mg/dL Troponin I (0.000-0.034) ng/mL NT-Pro-B Natriuret Pep (0-900) pg/mL Influenza Type A Ag (NEGATIVE) Influenza Type B Ag (NEGATIVE) RSV (PCR) (Negative) - Vitals & Intake/Output Vital Signs: Vital Signs Temperature 98.3 F 02/11/20 11:57 Pulse Rate 98 H 02/11/20 11:57 Respiratory Rate 18 02/11/20 11:57 Blood Pressure 127/76 02/11/20 11:57 O2 Sat by Pulse Oximetry 97 02/11/20 11:57 Intake & Output: Intake & Output 02/10/20 02/11/20 02/12/20 02/13/20 11:59 11:59 11:59 11:59 Intake Total 880 240 Output Total 150 Balance 730 240 Weight 68.4 kg - Lab Result Diagrams: 02/11/20 04:15 02/11/20 04:15 - Procedures and Test Procedures and Tests throughout Hospitalization: Therapy Orders & Screens 02/10/20 22:15 Respiratory Therapy Assessment DAILY Comment: Diagnosis: COPD Exacerbation 02/10/20 23:43 Oxygen Nasal Cannula 2 lpm Comment: Diagnosis: COPD Exacerbation Peak Expiratory Flow Rate BEFORE&AFTER NEB TX Comment: Before and after nebulizer treatments Reason For Exam: Diagnosis: COPD Exacerbation Respiratory Therapy Consult ROUTINE Comment: Reason For Exam: Diagnosis: COPD Exacerbation 02/11/20 00:50 RT Screen per Nursing Assess Comment: Protocol Order Physician Instructions: Greater than 3 points order RT Admission Screen Reason For Exam: Triggered on Admission Diagnosis: COPD exacerbation Diagnosis: COPD exacerbation Pneumonia: No Home O2: Yes Asthma: No CHF: No Home CPAP/BIPAP: No Home Nebs/MDI: Yes Total Points: 10 02/11/20 07:00 Respiratory MDI UD Comment: TRELEGY DAILY Diagnosis: COPD exacerbation - Discharge Discharge Date: 02/11/20 Disposition: Home, Self-Care Condition: Stable Prescriptions: Continue Levothyroxine Sodium 25 Mcg [Synthroid 25 Mcg] 25 mcg PO 0600 Omeprazole 40 mg PO DAILY Albuterol 8 gm Mdi Hfa [Ventolin Hfa MDI] 2 puffs IH Q4HPRN PRN PRN Reason: Shortness Of Breath Albuterol 2.5 mg/3 ml Neb [Proventil 2.5 mg/3 ml Neb] 1 neb IH Q4H PRN PRN PRN Reason: Shortness Of Breath Alprazolam 1 mg [Xanax 1 mg] 1 mg PO Q8H Fluoxetine HCl [Prozac] 80 mg PO DAILY #30 capsule Simvastatin 20 mg PO HS Fluticasone/Umeclidin/Vilanter [Trelegy Ellipta 100-62.5-25] 1 blist PO DAILY Instructions: Exacerbation of COPD (DC) Additional Instructions: KEEP APPOINTMENT WITH DR Karen KOHLER TODAY. QUIT VAPING. Forms: Discharge Instructions
== END 2020-02-11 13:57 | disposition home or self-care (01) ==
LOC: ED 22:01 → MED SURG 23:40
PROVIDERS: ADMIT General Practice; ATTEND General Practice
DX: J44.1 Chronic obstructive pulmonary disease with (acute) exacerbation (principal); E03.9 Hypothyroidism, unspecified; Z79.899 Other long term (current) drug therapy; F17.290 Nicotine dependence, other tobacco product, uncomplicated; Z99.81 Dependence on supplemental oxygen
CPT/HCPCS: 36000; 36415; 71046; 80048; 82805; 83880; 84484; 85025; 85027; 87631; 93005; 93041; 94150; 94640; 94760; 94762; 99284; G0378; J1650; J2930; J7609; A9270-GY

== ENCOUNTER 2020-04-27 13:49 | Observation (INO) | payer MEDICARE ==
[2020-04-27] MEDS ORDERED: BABY ASPIRIN 81 MG CHEW PO ONE (13:57)
[2020-04-27] MEDS ORDERED: Sodium Chloride 0.9% 1000 ML 1,000 ML IV SCH (14:00)
--- NOTE | 2020-04-27 14:11 | XRAY ---
Indication: Weakness. Stroke symptoms. Multiple contiguous axial images obtained through the head without contrast. Comparison: None Ventriculosulcal pattern appears symmetric. Tiny remote left external capsule lacunar infarct. No acute intracranial hemorrhage, abnormal extra-axial fluid collection, or mass effect. Fourth ventricle is midline without hydrocephalus. Harding-white matter differentiation is preserved. Bony calvarium. Visualized paranasal sinuses and mastoid air cells are clear. Impression: Left external capsule remote lacunar infarct. Remaining CT head without contrast exam is negative.
--- NOTE | 2020-04-27 14:13 | ERPHSYRPT ---
- History of Present Illness Source: patient Exam Limitations: no limitations Patient Subjective Stated Complaint: pt co being under a lot of stress, and being confused today.she states a friend called the ambulance.her head is throbbing, n/n/d off and on Triage Nursing Assessment: pt alert, but states she is unable to answer questions today, speech is slow at times, she states she took her meds today, she knows nurse and medical history, no fever . feels unsafe at home due to no support system Physician History: Patient is a 54-year-old female presents to our ED via EMS for evaluation of altered mental status. Patient states that she feels as though her thinking is " "fuzzy" she has been feeling very dizzy. Patient also feeling weak. Patient requires home O2. Patient states her home tubing is short however she has been doing yard work without her oxygen. Patient believes this is the reason why she has been feeling fatigued. Patient states she is feeling very stressed because she lives alone and is not have social support. Patient afraid that something is going to happen to her while she is at home alone. Patient has a history of hypokalemia. Patient states she feels like her potassium is low. She has not been taking potassium supplementation as required. No trauma. No fever. No headache. No nausea or vomiting. No diarrhea. Patient has no urinary complaints. No pain at this time. Symptoms are mild to moderate intensity. No specific worsening or improving factors. Patient requesting hospitalization as she feels too weak to go home. Timing/Duration: day(s) (Symptoms started approximately 2 days ago.) Severity: moderate Character of Deficits: none, altered sensation Deficits: no difficulties Baseline/Normal Cognition: alert oriented x 3 Current Cognition: alert oriented x 3 Associated Symptoms: confusion, weakness, No fever, No loss of consciousness, No muscle spasms Allergies/Adverse Reactions: morphine Allergy (Intermediate, Verified 04/27/20 13:53) Hives tramadol Adverse Reaction (Intermediate, Verified 04/27/20 13:53) Med interaction with prozac Home Medications: Levothyroxine Sodium 25 Mcg [Synthroid 25 Mcg] 25 mcg PO 0600 02/01/16 [ History] Omeprazole 40 mg PO DAILY 02/01/16 [History] Albuterol 2.5 mg/3 ml Neb [Proventil 2.5 mg/3 ml Neb] 1 neb IH Q4H PRN PRN 07/06/16 [History] Albuterol 8 gm Mdi Hfa [Ventolin Hfa MDI] 2 puffs IH Q4HPRN PRN 07/06/16 [ History] Alprazolam 1 mg [Xanax 1 mg] 1 mg PO Q8H 03/28/18 [History] Fluticasone/Umeclidin/Vilanter [Trelegy Ellipta 100-62.5-25] 1 blist PO DAILY [History] Simvastatin 20 mg PO HS 02/10/20 [History] Fluoxetine HCl [Prozac] 40 mg PO DAILY 04/27/20 [History] Prednisone 20 mg [Deltasone 20 mg] 20 mg DAILY 04/27/20 [History] Hx Tetanus, Diphtheria Vaccination/Date Given: Yes Hx Influenza Vaccination/Date Given: Yes Hx Pneumococcal Vaccination/Date Given: Yes Immunizations Up to Date: Yes Travel Risk - International Travel Have you traveled outside of the country in past 3 weeks: No Have you or anyone close to you been diagnosed with or: No Do your reside in a community with a known COVID-19 case?: Yes If Yes where:: [place] - Coronavirus Screening Has patient experienced Coronavirus symptoms: No - Review of Systems Constitutional: No Symptoms, No Fever, No Chills Eyes: No Symptoms Ears, Nose, & Throat: No Symptoms Respiratory: No Symptoms, No Cough, No Dyspnea Cardiac: No Symptoms, No Chest Pain, No Edema, No Syncope Abdominal/Gastrointestinal: No Symptoms, No Abdominal Pain, No Nausea, No Vomiting, No Diarrhea Genitourinary Symptoms: No Symptoms, No Dysuria Musculoskeletal: No Symptoms, No Back Pain, No Neck Pain Skin: No Symptoms, No Rash Neurological: Other (Generalized weakness.), No Dizziness, No Focal Weakness, No Sensory Changes Psychological: No Symptoms Endocrine: No Symptoms All Other Systems: Reviewed and Negative - Past Medical History Pertinent Past Medical History: Yes Neurological History: Seizures, Other ENT History: Other Cardiac History: No Pertinent History Respiratory History: COPD Endocrine Medical History: Hypothyroidism Musculoskeletal History: Osteoarthritis, Other GI Medical History: Gallbladder Disease, Hemorrhoids History: No Pertinent History Psycho-Social History: Anxiety, Depression, Panic Disorder Female Reproductive Disorders: Cervical Cancer, Vaginal Cancer Other Medical History: SEROTONIN SYNDROME HX; HYSTERECTOMY, PARTIAL VULVECTOMY D /T CERVICAL CA; R KNEE 'SCOPE, R WRIST SX; SPINAL ; PT. USES 2L O2 ART NIGHT AND DURING THE DAY PRN. - Past Surgical History Past Surgical History: Yes Neuro Surgical History: No Pertinent History Cardiac: No Pertinent History Respiratory: No Pertinent History Gastrointestinal: Cholecystectomy Genitourinary: No Pertinent History Musculoskeletal: Orthopedic Surgery Female Surgical History: Hysterectomy, Dilation & Curettage, Other Other Surgical History: partial vulvectomy , rt hand surgery, epidural for back pain cerviacl cancer-removed around cervix,rt knee surgery - Social History Smoking Status: Former smoker How long have you smoked: 30 years Exposure to second hand smoke: Yes Drug Use: none Patient Lives Alone: Yes - Female History Hx Last Menstrual Period: post - Nursing Vital Signs Nursing Vital Signs: Initial Vital Signs O2 Sat by Pulse Oximetry 99 04/27/20 14:12 Pain Scale Pain Intensity 0 - Venkata Coma Scale Best Eye Response (Venkata): (4) open spontaneously Best Verbal Response (Venkata): (5) oriented Best Motor Response (Venkata): (6) obeys commands Venkata Total: 15 - Physical Exam General Appearance: no apparent distress, alert Eye Exam: bilateral eye: PERRL, EOMI, other (Patient has chronic nystagmus.) Ears, Nose, Throat Exam: normal ENT inspection, moist mucous membranes Neck Exam: normal inspection, non-tender, supple Respiratory: normal breath sounds, lungs clear, airway intact, No respiratory distress Cardiovascular: regular rate/rhythm, No edema Gastrointestinal: soft, No tenderness, No distention Pelvic Exam: not done Rectal Exam: deferred Back Exam: normal inspection Extremity Exam: normal inspection, No pedal edema Peripheral Pulses: dorsalis-pedis (R): 2+, dorsalis-pedis (L): 2+ Mental Status: alert, oriented x 3 dope firer Exam: normal hearing, normal speech (slow speech. ), abnormal eye position , tongue midline, No facial droop, No facial paresthesias, No gaze palsy Coordination/Gait: normal finger to nose, normal gait Motor/Sensory: no motor deficit Skin Exam: normal color, warm, dry, No rash SpO2 Interpretation: normal SpO2: 99 O2 Delivery: Room Air - Course Nursing assessment & vital signs reviewed: Yes EKG Interpreted by Me: RATE (96), Sinus Rhythm, Left [place] Deviation, prolonged QT interval, Other (EKG is similar to EKG dated 02/10/2020.) - Radiology Exams Chest X-ray Interpretation: Teleradiologist Report (Stable nonacute hyperinflated chest. Heart is not enlarged. Bony thorax intact. No new acute findings.) - CT Exams Head CT Interpretation: Tele-radiologist Report (Tiny left external capsule remote lacunar infarct. Remaining CT head without contrast is negative.) Ordered Tests: Active Orders 24 hr Category Date Time Status Supervisor Warping Department STAT Care 04/27/20 13:58 Active EKG-ER Only STAT Care 04/27/20 13:57 Active IV Insertion STAT Care 04/27/20 13:57 Active Isolation, Initiate & Maintain Q4H Care 04/27/20 14:05 Active NPO (ED) STAT Care 04/27/20 13:57 Active Oxygen-ED Only Nasal Cannula 2 lpm Care 04/27/20 14:15 Active Pulse Oximetry (ED) STAT Care 04/27/20 13:57 Active cath [Cath for Specimen-Straight] STAT Care 04/27/20 14:15 Active CHEST 1 VIEW (PORTABLE) Stat Exams 04/27/20 13:58 Completed HEAD WITHOUT CONTRAST [CT] Stat Exams 04/27/20 13:51 Completed ARTERIAL BLOOD GASES Urgent Lab 04/27/20 14:25 Completed CBC W DIFF Stat Lab 04/27/20 14:30 Completed CMP Stat Lab 04/27/20 14:30 Completed Lactic Acid Stat Lab 04/27/20 13:57 Ordered MAGNESIUM Stat Lab 04/27/20 14:30 Completed UA W/RFX UR CULTURE Stat Lab 04/27/20 15:00 Completed Medication Summary Generic Name Dose Route Start Last Admin Trade Name Freq PRN Reason Stop Dose Admin Sodium Chloride 1,000 mls @ 75 mls/hr 04/27/20 14:00 04/27/20 14:41 Sodium Chloride 0.9% 1000 Ml IV 05/27/20 13:59 75 mls/hr .[id number] BREA Administration Discontinued Medications Generic Name Dose Route Start Last Admin Trade Name Freq PRN Reason Stop Dose Admin Aspirin 324 mg 04/27/20 13:57 04/27/20 14:42 Baby Aspirin 81 Mg Chew PO 04/27/20 13:58 324 mg STAT ONE Administration Aspirin Confirm 04/27/20 14:38 Baby Aspirin 81 Mg Chew Administered 04/27/20 14:39 Dose 324 mg .ROUTE .STK-MED ONE Potassium Chloride 40 meq 04/27/20 15:22 04/27/20 15:30 Klor Con 10 Meq PO 04/27/20 15:23 40 meq STAT ONE Administration Potassium Chloride Confirm 04/27/20 15:24 Klor Con 10 Meq Administered 04/27/20 15:25 Dose 40 meq PO .STK-MED ONE Lab/Rad Data: Laboratory Result Diagrams 04/27/20 14:30 04/27/20 14:30 Laboratory Results 04/27/20 04/27/20 04/27/20 Range/Units 15:00 14:30 14:30 WBC 8.7 (4.0-10.5) K/mm3 RBC 5.10 (4.1-5.4) M/mm3 Hgb 15.1 (12.0-16.0) gm/dl Hct 44.8 (35-47) % MCV 87.8 (78-100) fl MCH 29.6 (26-32) pg MCHC 33.7 (32-36) g/dl RDW 12.7 (11.5-14.0) % Plt Count 374 (150-450) K/mm3 MPV 9.2 (7.5-11.0) fl Gran % 90.3 H (36.0-66.0) % Eos # (Auto) 0.01 (0-0.5) Absolute Lymphs (auto) 0.53 L (1.0-4.6) Absolute Monos (auto) 0.30 (0.0-1.3) Lymphocytes % 6.1 L (24.0-44.0) % Monocytes % 3.5 (0.0-12.0) % Eosinophils % 0.1 (0.00-5.0) % Basophils % 0.0 (0.0-0.4) % Absolute Granulocytes 7.82 H (1.4-6.9) Basophils # 0 (0-0.4) Puncture Site pCO2 (35-45) mmHg pO2 (75-100) mmHg Base Excess (-2.0-2.0) O2 Saturation (94-100) g/dF ABG pH (7.35-7.45) ABG HCO3 (22-28) ABG O2 Sat (Measured) (95-100) % Shawn Test A-a Gradient a/A Ratio Hemoglobin Carboxyhemoglobin (0.0-6.9) % THgb Methemoglobin (1.4-1.5) % Potassium 2.7 L* (3.5-5.1) Temperature C POC O2 Flow Rate % Sodium 135 L (137-145) mmol/L Chloride 89 L (98-107) mmol/L Carbon Dioxide 35 H (22-30) mmol/L Anion Gap 13.2 (5-15) MEQ/L BUN 3 L (7-17) mg/dL Creatinine 0.69 (0.52-1.04) mg/dL Estimated GFR > 60.0 ML/MIN Glucose 149 H (74-106) mg/dL Calcium 9.2 (8.4-10.2) mg/dL Magnesium 1.9 (1.6-2.3) mg/dL Total Bilirubin 1.30 (0.2-1.3) mg/dL AST 42 H (14-36) U/L ALT 50 H (0-35) U/L Alkaline Phosphatase 137 H (38-126) U/L Serum Total Protein 7.5 (6.3-8.2) g/dL Albumin 4.4 (3.5-5.0) g/dL Urine Color STRAW (YELLOW) Urine Appearance CLEAR (CLEAR) Urine pH 7.0 (5-6) Ur Specific [place] 1.002 (1.005-1.025) Urine Protein NEGATIVE (Negative) Urine Ketones TRACE (NEGATIVE) Urine Blood NEGATIVE (0-5) Narendra/ul Urine Nitrite NEGATIVE (NEGATIVE) Urine Bilirubin NEGATIVE (NEGATIVE) Urine Urobilinogen NEGATIVE (0-1) mg/dL Ur Leukocyte Esterase NEGATIVE (NEGATIVE) Urine WBC (Auto) NONE (0-5) /HPF Urine RBC (Auto) NONE (0-2) /HPF U Epithel Cells (Auto) NONE (FEW) /HPF Urine Bacteria (Auto) NONE (NEGATIVE) /HPF Urine Culture Reflexed NO (NO) Urine Glucose NEGATIVE (NEGATIVE) mg/dL 04/27/20 Range/Units 14:25 WBC (4.0-10.5) K/mm3 RBC (4.1-5.4) M/mm3 Hgb (12.0-16.0) gm/dl Hct (35-47) % MCV (78-100) fl MCH (26-32) pg MCHC (32-36) g/dl RDW (11.5-14.0) % Plt Count (150-450) K/mm3 MPV (7.5-11.0) fl Gran % (36.0-66.0) % Eos # (Auto) (0-0.5) Absolute Lymphs (auto) (1.0-4.6) Absolute Monos (auto) (0.0-1.3) Lymphocytes % (24.0-44.0) % Monocytes % (0.0-12.0) % Eosinophils % (0.00-5.0) % Basophils % (0.0-0.4) % Absolute Granulocytes (1.4-6.9) Basophils # (0-0.4) Puncture Site RIGHT BRACHIAL pCO2 43 (35-45) mmHg pO2 110 H (75-100) mmHg Base Excess 12.8 H (-2.0-2.0) O2 Saturation 96.9 (94-100) g/dF ABG pH 7.54 H (7.35-7.45) ABG HCO3 36.8 H* (22-28) ABG O2 Sat (Measured) 99.2 (95-100) % Shawn Test YES A-a Gradient 36 a/A Ratio 0.75 Hemoglobin 15.4 Carboxyhemoglobin 1.1 (0.0-6.9) % THgb Methemoglobin 1.2 L (1.4-1.5) % Potassium 2.8 L* (3.5-5.1) Temperature 37.0 C POC O2 Flow Rate 28 % Sodium (137-145) mmol/L Chloride (98-107) mmol/L Carbon Dioxide (22-30) mmol/L Anion Gap (5-15) MEQ/L BUN (7-17) mg/dL Creatinine (0.52-1.04) mg/dL Estimated GFR ML/MIN Glucose (74-106) mg/dL Calcium (8.4-10.2) mg/dL Magnesium (1.6-2.3) mg/dL Total Bilirubin (0.2-1.3) mg/dL AST (14-36) U/L ALT (0-35) U/L Alkaline Phosphatase (38-126) U/L Serum Total Protein (6.3-8.2) g/dL Albumin (3.5-5.0) g/dL Urine Color (YELLOW) Urine Appearance (CLEAR) Urine pH (5-6) Ur Specific [place] (1.005-1.025) Urine Protein (Negative) Urine Ketones (NEGATIVE) Urine Blood (0-5) Narendra/ul Urine Nitrite (NEGATIVE) Urine Bilirubin (NEGATIVE) Urine Urobilinogen (0-1) mg/dL Ur Leukocyte Esterase (NEGATIVE) Urine WBC (Auto) (0-5) /HPF Urine RBC (Auto) (0-2) /HPF U Epithel Cells (Auto) (FEW) /HPF Urine Bacteria (Auto) (NEGATIVE) /HPF Urine Culture Reflexed (NO) Urine Glucose (NEGATIVE) mg/dL - Progress Progress: improved Progress Note: 04/27/20 15:37 Work-up reveals hypokalemia and a remote lacunar infarct. Patient still feels weak. Patient states her thinking is still very fuzzy. Patient requesting admission. Repeat neuro exam unchanged. Case discussed with Dr. Aquino who accepts admission to observation. Patient received aspirin. IV fluids at 75 cc /h infusing. Magnesium 1.9. We have begun to replace her low potassium. Patient agrees to admission to [facility] for further evaluation and treatment. Discussed with : Disha Will see patient in: hospital (observation) Counseled pt/family regarding: lab results, diagnosis, need for follow-up, rad results - Departure Departure Disposition: In-patient Admission Clinical Impression: Generalized weakness, Hypokalemia, Confusion, Stress Condition: Stable Critical Care Time: No Referrals: GUALBERTO KOHLER [Primary Care Provider] -
--- NOTE | 2020-04-27 14:28 | XRAY ---
Indication: Weakness. Acute mental status change. Comparison: February 11, 2020. Portable chest remains hyperinflated and clear. Heart is not enlarged. Bony thorax intact. No new/acute findings. Impression: Stable nonacute hyperinflated chest.
[2020-04-27 14:30] LABS: A-aADO2 36; ABG HEMOGLOBIN 15.4; ARTERIAL BLD GAS O2 SATURATION 99.2 % (95-100); ARTERIAL BLOOD GAS BASE EXCESS 12.8 (-2.0-2.0); ARTERIAL BLOOD GAS FIO2 28 %; ARTERIAL BLOOD GAS PCO2 43 mmHg (35-45); ARTERIAL BLOOD GAS PO2 110 mmHg (75-100); ARTERIAL BLOOD GAS pH 7.54 (7.35-7.45); CARBOXYHEMOGLOBIN 1.1 % THgb (0.0-6.9); HCO3- 36.8 (22-28); HGB O2 SAT 96.9 g/dF (94-100); Methhemoglobin 1.2 % (1.4-1.5); paO2 pAO1 0.75
[2020-04-27 14:31] LABS: ABG POTASSIUM 2.8 (3.5-5.1); ABG SITE RIGHT BRACHIAL; ALLEN TEST OK? YES
[2020-04-27] MEDS ORDERED: Sodium Chloride 0.9% 1000 ML 1,000 ML ONE (14:38)
[2020-04-27] MEDS ORDERED: BABY ASPIRIN 81 MG CHEW ONE (14:38)
[2020-04-27 14:50] LABS: Absolute Neutrophil Ct (ANC) 7.82 (1.4-6.9); Basophil (Absolute #) 0 (0-0.4); Eosinophil % 0.1 % (0.00-5.0); Eosinophil (Absolute #) 0.01 (0-0.5); Hematocrit 44.8 % (35-47); Hemoglobin 15.1 gm/dl (12.0-16.0); Lymphocyte (Absolute #) 0.53 (1.0-4.6); Lymphocytes % 6.1 % (24.0-44.0); Mean Cell Volume 87.8 fl (78-100); Mean Corpuscular Hemoglobin 29.6 pg (26-32); Mean Corpuscular Hgb Concent. 33.7 g/dl (32-36); Mean Platelet Volume 9.2 fl (7.5-11.0); Monocytes % 3.5 % (0.0-12.0); Neutrophil % 90.3 % (36.0-66.0); Platelet Count 374 K/mm3 (150-450); Red Cell Distribution Width 12.7 % (11.5-14.0); White Blood Count 8.7 K/mm3 (4.0-10.5)
[2020-04-27 15:01] LABS: ALBUMIN 4.4 g/dL (3.5-5.0); ALKALINE PHOSPHATASE 137 U/L (38-126); ANION GAP 13.2 MEQ/L (5-15); BLOOD UREA NITROGEN 3 mg/dL (7-17); CHLORIDE 89 mmol/L (98-107); Calcium 9.2 mg/dL (8.4-10.2); Carbon Dioxide 35 mmol/L (22-30); Creatinine 1 0.69 mg/dL (0.52-1.04); Glucose 149 mg/dL (74-106); MAGNESIUM 1.9 mg/dL (1.6-2.3); SGOT/AST 42 U/L (14-36); SGPT/ALT 50 U/L (0-35); SODIUM 135 mmol/L (137-145); Total Protein 7.5 g/dL (6.3-8.2)
[2020-04-27 15:02] LABS: Potassium 2.7 mmol/L (3.5-5.1)
[2020-04-27 15:05] LABS: Appearance CLEAR (CLEAR); Bilirubin NEGATIVE (NEGATIVE); Blood NEGATIVE Ery/ul (0-5); Glucose NEGATIVE (NEGATIVE); Ketones TRACE (NEGATIVE); Leukocyte Esterase NEGATIVE (NEGATIVE); Nitrite NEGATIVE (NEGATIVE); Protein,Urine Dip NEGATIVE (Negative); Specific Gravity 1.002 (1.005-1.025); Urobilinogen NEGATIVE mg/dL (0-1)
[2020-04-27] MEDS ORDERED: Klor Con 10 MEQ PO ONE ×2 (15:22→15:24)
[2020-04-27] MEDS ORDERED: TYLENOL 325 MG PO PRN (16:28)
[2020-04-27] MEDS: Sodium Chloride 0.9% 1000 ML 1,000 ML IV SCH (17:04)
[2020-04-27] MEDS ORDERED: MEDICATION INTERVENTION MC SCH (18:00)
[2020-04-27 18:02] LABS: Slide Review 1 YES
[2020-04-27] MEDS: XANAX 1 MG PO SCH (18:50)
[2020-04-27 19:44] LABS: MAGNESIUM 1.9 mg/dL (1.6-2.3); Potassium 3.6 mmol/L (3.5-5.1)
[2020-04-27] MEDS: DUONEB 0.5-3 MG/3 ml Neb IH SCH (20:31)
[2020-04-27] MEDS ORDERED: ZOCOR 20MG PO SCH (22:00)
[2020-04-28] MEDS: Sodium Chloride 0.9% 1000 ML 1,000 ML IV SCH (02:50)
[2020-04-28 04:03] LABS: ALBUMIN 3.4 g/dL (3.5-5.0); ALKALINE PHOSPHATASE 100 U/L (38-126); ANION GAP 9.6 MEQ/L (5-15); BLOOD UREA NITROGEN 3 mg/dL (7-17); CHLORIDE 95 mmol/L (98-107); Calcium 8.5 mg/dL (8.4-10.2); Carbon Dioxide 36 mmol/L (22-30); Creatinine 1 0.74 mg/dL (0.52-1.04); Glucose 72 mg/dL (74-106); Potassium 3.5 mmol/L (3.5-5.1); SGOT/AST 47 U/L (14-36); SGPT/ALT 49 U/L (0-35); SODIUM 137 mmol/L (137-145); Total Protein 5.8 g/dL (6.3-8.2)
[2020-04-28 04:23] LABS: Absolute Neutrophil Ct (ANC) 4.52 (1.4-6.9); BASOPHIL % 0.1 % (0.0-0.4); Basophil (Absolute #) 0.01 (0-0.4); Eosinophil % 0.8 % (0.00-5.0); Eosinophil (Absolute #) 0.06 (0-0.5); Hematocrit 40.4 % (35-47); Hemoglobin 13.3 gm/dl (12.0-16.0); Lymphocyte (Absolute #) 2.49 (1.0-4.6); Lymphocytes % 31.9 % (24.0-44.0); Mean Corpuscular Hgb Concent. 32.9 g/dl (32-36); Mean Platelet Volume 9.3 fl (7.5-11.0); Monocyte (Absolute #) 0.72 (0.0-1.3); Monocytes % 9.2 % (0.0-12.0); Platelet Count 323 K/mm3 (150-450); Red Blood Count 4.44 M/mm3 (4.1-5.4); Red Cell Distribution Width 12.9 % (11.5-14.0); White Blood Count 7.8 K/mm3 (4.0-10.5)
[2020-04-28] MEDS: XANAX 1 MG PO SCH ×2 (05:38→09:57)
[2020-04-28] MEDS ORDERED: SYNTHROID 25 MCG PO SCH (06:00)
[2020-04-28] MEDS: DUONEB 0.5-3 MG/3 ml Neb IH SCH ×3 (07:06→14:45)
[2020-04-28] MEDS ORDERED: ENOXAPARIN SODIUM SQ SCH (10:00)
[2020-04-28] MEDS ORDERED: Protonix 40MG Tablet PO SCH (10:00)
[2020-04-28] MEDS ORDERED: NON-FORMULARY ITEM (Fluoxetine Hcl [Prozac] 40 MG) PO SCH (10:00)
[2020-04-28] MEDS ORDERED: DELTASONE 20 MG PO SCH (10:00)
[2020-04-28] MEDS ORDERED: VILANTER IH SCH (10:00)
[2020-04-28] MEDS ORDERED: UMECLIDIN IH SCH (10:00)
[2020-04-28] MEDS ORDERED: Klor Con 10 MEQ PO SCH (10:00)
[2020-04-28] MEDS ORDERED: PATIENT OWN MEDICATION IH SCH (10:00)
[2020-04-28] MEDS ORDERED: FLUTICASONE IH SCH (10:00)
[2020-04-28] MEDS ORDERED: Prozac 20 MG PO SCH ×2 (10:00→10:09)
--- NOTE | 2020-04-28 10:09 | HP ---
HISTORY OF PRESENT ILLNESS: This is a 54 year-old patient of Dr. Marissa Walsh who presented to the emergency department with generalized weakness and shortness of breath after working outside without her oxygen on. She reports she has recently been on prednisone for chronic obstructive pulmonary disease and thinks that this has decreased her potassium. She has a history of low potassium in the past. She reports she has been on antibiotics on and off since 02/10/2020 at which time the patient thinks she may have had COVID but she was never tested at that time. She reports she was tested later and told she was negative. The patient reports she has been on Levaquin for five days. She feels better today, not quite as tired. She has not been up moving around much because she has not had her breakfast yet. She reports a cough that is productive of clear sputum. She wears oxygen at home at 2 liters. She reports she was dizzy on admission. She reports she has five more days of prednisone left. Denies any fevers. She quit smoking two years ago. She denies any nausea but has some diarrhea. REVIEW OF SYSTEMS: As in the history of present illness. MEDICATIONS: Please see the home medication reconciliation list which I have reviewed. ALLERGIES: MORPHINE. TRAMADOL. PAST MEDICAL HISTORY: Chronic obstructive pulmonary disease. PAST SURGICAL HISTORY: She reports "a lot of surgeries". SOCIAL HISTORY: She lives with her boyfriend and quit smoking two years ago. FAMILY HISTORY: Her mother is and of myocardial infarction. Her father is and had Alzheimer's. PHYSICAL EXAMINATION: VITAL SIGNS: Temperature current 98.0F, heart rate 76, respiratory rate 17, blood pressure 138/70. Oxygen saturation 94% on 2 liters. GENERAL: The patient is a pleasant talkative lady sitting up in bed in no acute distress, on oxygen by nasal cannula. CVS: Her heart has a regular rate and rhythm. No murmurs, gallops or rubs. CHEST: Her breath sounds are distant throughout, equal breath sounds. No crackles or wheezes are appreciated. ABDOMEN: Soft, nontender, nondistended with normal bowel sounds. EXTREMITIES: No clubbing, cyanosis or edema. SKIN: Warm, dry and intact. LABORATORY DATA AND TESTS: On admission her potassium was 2.7, repeat was 3.6 and this morning 3.5. AST and ALT are very mildly elevated. Serial troponins have been negative. UA was negative. ASSESSMENT AND PLAN: 1) HYPOKALEMIA: This appears to have resolved. I have ordered potassium chloride 10 [place] p.o. b.i.d. while she is here. 2) CHRONIC OBSTRUCTIVE PULMONARY DISEASE: Will continue with current medications and oxygen. 3) GENERALIZED WEAKNESS: I have asked PT to evaluate her to make sure she is able to take care of herself safely at home. 4) CODE STATUS: The patient reports she does want to be a FULL CODE.
[2020-04-28] MEDS ORDERED: Prozac 20 MG PO ONE (10:33)
[2020-04-28 13:52] VITALS: BP 101/53; PULSE 90; O2SAT 98
--- NOTE | 2020-04-28 14:35 | CONS ---
CONSULT DATE: 04/28/2020 HISTORY: Miss Kinsey is a 54 year-old woman with history of chronic obstructive pulmonary disease, well known to me who has been hospitalized with complaints of increasing shortness of breath, wheezing. The patient presented to the emergency room at [facility] with significant bronchospasm. She has been started on IV antibiotics, steroids and bronchodilators. The patient reports significant improvement in her symptoms. She currently has very minimal cough. She ambulates in the room without much difficulty. PAST MEDICAL HISTORY: Positive for history of chronic obstructive pulmonary disease, chronic bronchitis, anxiety disorder, depression, hypothyroidism, prior history of seizures. PAST SURGICAL HISTORY: Knee surgery. Surgery for cervical cancer. D&C. EGD. Colonoscopy. Hysterectomy. PERSONAL AND SOCIAL HISTORY: The patient quit smoking in February 2018. MEDICATIONS: Medications are reviewed. ALLERGIES: MORPHINE. TORADOL. PHYSICAL EXAMINATION: This is a middle aged woman who appears comfortable, able to speak without difficulty. Vital signs noted. HEENT: Normocephalic. Atraumatic. Pupils are reactive. NECK: Supple. CVS: First and second heart sounds are normal, regular, rhythmic. RESPIRATORY: Shows diminished breath sounds. Bilateral rhonchi are heard. ABDOMEN: Soft. EXTREMITIES: Lower extremities show 1+ leg edema. There is no clubbing or cyanosis. LABORATORY DATA AND TESTS: Hemoglobin 15.4. PLT 374,000. Potassium 2.8. Lactic acid 0.9. The pH 7.54, pCO2 43, pO2 110. Chest x-ray pending. ASSESSMENT: This is a 54 year old woman admitted with: 1) Acute exacerbation of chronic obstructive pulmonary disease. 2) Chronic bronchitis. 3) Hypokalemia. 4) Debilitation. RECOMMENDATIONS: 1) I agree with the present treatment. The patient is on IV antibiotics, steroids, bronchodilators. 2) Deep venous thrombosis and GI prophylaxis. 3) Reduce steroids as tolerated. 4) Resume Trelegy when available. I will follow up as outpatient setting in one week. Discussed this plan with the patient. Thank you for allowing me to participate in the care of Miss Kinsey.
--- NOTE | 2020-04-28 14:40 | PCM.DCORD ---
- Discharge Discharge Date: 04/28/20 Disposition: Home, Self-Care Condition: Good Prescriptions: Continue Levothyroxine Sodium 25 Mcg [Synthroid 25 Mcg] 25 mcg PO 0600 Omeprazole 40 mg PO DAILY Alprazolam 1 mg [Xanax 1 mg] 1 mg PO Q8H Simvastatin 40 mg PO HS Prednisone 20 mg [Deltasone 20 mg] 20 mg PO DAILY Fluoxetine HCl [Prozac] 80 mg PO DAILY Ipratropium/Albuterol Sulfate [Iprat-Albut 0.5-3(2.5) mg/3 ml] 1 vial IH QID Fluticasone/Umeclidin/Vilanter [Trelegy Ellipta 100-62.5-25] 1 tab IH DAILY Additional Instructions: Follow up with at [facility] on 05/05/20@ 1:15p.m. [facility] WILL BE IN CONTACT WITH YOU TO ARRANGE A VISIT. THEIR PHONE NUMBER IS [phone] Return to ER or call primary care doctor if any weakness or trouble breathing. Follow up with: LINDA KOHLER [ACTIVE STAFF] - 05/05/20 1:15 pm ([place] office)
== END 2020-04-28 15:35 | disposition home health service (06) ==
LOC: ED 13:49 → MED SURG 16:22
PROVIDERS: ADMIT Internal Medicine; ATTEND Internal Medicine
DX: E87.6 Hypokalemia (principal); J44.9 Chronic obstructive pulmonary disease, unspecified; R42 Dizziness and giddiness; R53.1 Weakness; R53.81 Other malaise; Z79.899 Other long term (current) drug therapy; Z99.81 Dependence on supplemental oxygen
CPT/HCPCS: 36000; 36415; 36600; 70450; 71045; 80053; 81001; 82375; 82803; 83605; 83735; 84132; 84484; 85025; 93005; 93041; 93268; 94150; 94640; 94760; 94762; 96360; 96361; 97161; 99285; G0378; P9612; J1650; A9270-GY

== ENCOUNTER 2020-05-01 01:43 | Emergency (ER) | payer MEDICARE ==
[2020-05-01] MEDS ORDERED: Sodium Chloride 0.9% 1000 ML 1,000 ML IV STA (01:59)
[2020-05-01] MEDS ORDERED: Zofran 4 MG/2 ML VIAL IV ONE (01:59)
[2020-05-01] MEDS ORDERED: Sodium Chloride 0.9% 1000 ML 1,000 ML ONE (02:08)
[2020-05-01] MEDS ORDERED: Zofran 4 MG/2 ML VIAL ONE (02:08)
--- NOTE | 2020-05-01 02:08 | ERPHSYRPT ---
- History of Present Illness Time Seen by Provider: 05/01/20 01:45 Source: patient, EMS Exam Limitations: clinical condition, intoxication Physician History: 54 years old female with multiple medical problems including alcohol abuse, tobacco abuse is brought in the ER by EMS with altered mental status. EMS reports neighbor called patient is confused since yesterday morning and has been drinking. On EMS Accu-Chek was 70, given IV glucose and currently in 200s. Patient is awake and alert with no difficulty breathing. Patient denies any chest pain palpitations or shortness of breath. No abdominal pain nausea or vomiting. Patient reports having similar symptoms few months ago with hypokalemia. Patient is not a very good historian and history is limited. Although patient did mention to nursing staff that she wanted to by taking herself off of oxygen as she is on 2 L usually. She denies any homicidal ideations. Timing/Duration: yesterday Severity: moderate Associated Symptoms: No nausea, No vomiting, No abdominal pain, No cough, No chest pain, No syncope, No weakness Allergies/Adverse Reactions: morphine Allergy (Intermediate, Verified 05/01/20 04:30) Hives tramadol Adverse Reaction (Intermediate, Verified 05/01/20 04:30) Med interaction with prozac Home Medications: Levothyroxine Sodium 25 Mcg [Synthroid 25 Mcg] 25 mcg PO 0600 02/01/16 [ History] Omeprazole 40 mg PO DAILY 02/01/16 [History] Alprazolam 1 mg [Xanax 1 mg] 1 mg PO Q8H 03/28/18 [History] Simvastatin 40 mg PO HS 02/10/20 [History] Fluoxetine HCl [Prozac] 80 mg PO DAILY 04/27/20 [History] Fluticasone/Umeclidin/Vilanter [Trelegy Ellipta 100-62.5-25] 1 tab IH DAILY 01/15 [History] Ipratropium/Albuterol Sulfate [Iprat-Albut 0.5-3(2.5) mg/3 ml] 1 vial IH QID 01/15 [History] Prednisone 20 mg [Deltasone 20 mg] 20 mg PO DAILY 04/27/20 [History] Hx Tetanus, Diphtheria Vaccination/Date Given: Yes Hx Influenza Vaccination/Date Given: Yes Hx Pneumococcal Vaccination/Date Given: Yes - Review of Systems Constitutional: No Symptoms Eyes: No Symptoms Ears, Nose, & Throat: No Symptoms Respiratory: Cough Cardiac: No Symptoms Abdominal/Gastrointestinal: No Symptoms Genitourinary Symptoms: No Symptoms Musculoskeletal: No Symptoms Skin: No Symptoms Psychological: Alcohol Abuse, Anxiety, Depression, Suicidal Ideations Endocrine: No Symptoms Hematologic/Lymphatic: No Symptoms Immunological/Allergic: No Symptoms All Other Systems: Unable due to condition - Past Medical History Pertinent Past Medical History: Yes Neurological History: Seizures, Other ENT History: Other Cardiac History: No Pertinent History Respiratory History: COPD Endocrine Medical History: Hypothyroidism Musculoskeletal History: Osteoarthritis, Other GI Medical History: Gallbladder Disease, Hemorrhoids History: No Pertinent History Psycho-Social History: Anxiety, Depression, Panic Disorder Female Reproductive Disorders: Cervical Cancer, Vaginal Cancer Other Medical History: SEROTONIN SYNDROME HX; HYSTERECTOMY, PARTIAL VULVECTOMY D /T CERVICAL CA; R KNEE 'SCOPE, R WRIST SX; SPINAL ; PT. USES 2L O2 ART NIGHT AND DURING THE DAY PRN. - Past Surgical History Past Surgical History: Yes Neuro Surgical History: No Pertinent History Cardiac: No Pertinent History Respiratory: No Pertinent History Gastrointestinal: Cholecystectomy Genitourinary: No Pertinent History Musculoskeletal: Orthopedic Surgery Female Surgical History: Hysterectomy, Dilation & Curettage, Other Other Surgical History: partial vulvectomy , rt hand surgery, epidural for back pain cerviacl cancer-removed around cervix,rt knee surgery - Social History Smoking Status: Former smoker How long have you smoked: 30 years Exposure to second hand smoke: Yes Drug Use: none Patient Lives Alone: Yes - Nursing Vital Signs Nursing Vital Signs: Initial Vital Signs Temperature 98.7 F 05/01/20 01:56 Pulse Rate 95 H 05/01/20 01:56 Respiratory Rate 16 05/01/20 01:56 Blood Pressure 144/89 05/01/20 01:56 O2 Sat by Pulse Oximetry 97 05/01/20 01:56 Pain Scale Pain Intensity 0 - Physical Exam General Appearance: no apparent distress, alert Eye Exam: PERRL/EOMI, other (Horizontal nystagmus bilaterally with no preference ) Ears, Nose, Throat Exam: normal ENT inspection, TMs normal, pharynx normal Neck Exam: normal inspection, non-tender, supple, full range of motion Respiratory Exam: normal breath sounds, lungs clear, No chest tenderness Cardiovascular Exam: regular rate/rhythm, normal heart sounds Gastrointestinal/Abdomen Exam: soft, normal bowel sounds, No tenderness Back Exam: normal inspection, normal range of motion Extremity Exam: normal inspection, normal range of motion, pelvis stable Neurologic Exam: alert, food consultant II-XII nml as tested, nml cerebellar function, disoriented, confusion, No oriented x 3, No facial droop, No slurred speech Skin Exam: normal color SpO2 Interpretation: O2 applied O2 Delivery: Nasal Cannula - Course EKG Interpreted by Me: RATE (66), Sinus Rhythm, Left Lagrange Deviation, NORMAL INTERVALS, NORMAL QRS Ordered Tests: Active Orders 24 hr Category Date Time Status Cpas STAT Care 05/01/20 02:00 Active EKG-ER Only STAT Care 05/01/20 01:59 Active IV Insertion STAT Care 05/01/20 01:59 Active NPO (ED) STAT Care 05/01/20 01:44 Active CHEST 1 VIEW (PORTABLE) Stat Exams 05/01/20 02:00 Taken HEAD WITHOUT CONTRAST [CT] Stat Exams 05/01/20 01:44 Taken ACETAMINOPHEN Stat Lab 05/01/20 02:15 Completed BLOOD CULTURE Stat Lab 05/01/20 02:20 Received CBC W DIFF Stat Lab 05/01/20 02:15 Completed CMP Stat Lab 05/01/20 02:15 Completed ETHYL ALCOHOL Stat Lab 05/01/20 02:15 Completed LIPASE Stat Lab 05/01/20 02:15 Completed Lactic Acid Stat Lab 05/01/20 01:59 Ordered Lactic Acid Stat Lab 05/01/20 02:20 Completed MAGNESIUM Stat Lab 05/01/20 02:15 Completed PROTIME WITH INR Stat Lab 05/01/20 02:15 Completed SALICYLATE Stat Lab 05/01/20 02:15 Completed TROPONIN Q3H Lab 05/01/20 02:15 Completed UA W/RFX UR CULTURE Stat Lab 05/01/20 03:55 Completed Urine Triage Profile Stat Lab 05/01/20 03:55 Completed Medication Summary Discontinued Medications Generic Name Dose Route Start Last Admin Trade Name Freq PRN Reason Stop Dose Admin Sodium Chloride 1,000 mls @ 999 mls/hr 05/01/20 01:59 05/01/20 04:48 Sodium Chloride 0.9% 1000 Ml IV 05/01/20 02:59 Infused .Q1H1M STA Infusion Sodium Chloride Confirm 05/01/20 02:08 Sodium Chloride 0.9% 1000 Ml Administered 05/01/20 02:09 Dose 1,000 mls @ ud .ROUTE .[facility] ONE Ondansetron HCl 4 mg 05/01/20 01:59 05/01/20 02:10 Zofran 4 Mg/2 Ml Vial IV 05/01/20 02:00 4 mg STAT ONE Administration Ondansetron HCl Confirm 05/01/20 02:08 Zofran 4 Mg/2 Ml Vial Administered 05/01/20 02:09 Dose 4 mg .ROUTE .[facility] ONE Lab/Rad Data: Laboratory Result Diagrams 05/01/20 02:15 05/01/20 02:15 Laboratory Results 05/01/20 05/01/20 05/01/20 Range/Units 03:55 03:55 02:20 WBC (4.0-10.5) K/mm3 RBC (4.1-5.4) M/mm3 Hgb (12.0-16.0) gm/dl Hct (35-47) % MCV (78-100) fl MCH (26-32) pg MCHC (32-36) g/dl RDW (11.5-14.0) % Plt Count (150-450) K/mm3 MPV (7.5-11.0) fl Gran % (36.0-66.0) % Eos # (Auto) (0-0.5) Absolute Lymphs (auto) (1.0-4.6) Absolute Monos (auto) (0.0-1.3) Lymphocytes % (24.0-44.0) % Monocytes % (0.0-12.0) % Eosinophils % (0.00-5.0) % Basophils % (0.0-0.4) % Absolute Granulocytes (1.4-6.9) Basophils # (0-0.4) PT (9.95-12.35) SECONDS INR (0.8-3.0) Sodium (137-145) mmol/L Potassium (3.5-5.1) mmol/L Chloride (98-107) mmol/L Carbon Dioxide (22-30) mmol/L Anion Gap (5-15) MEQ/L BUN (7-17) mg/dL Creatinine (0.52-1.04) mg/dL Estimated GFR ML/MIN Glucose (74-106) mg/dL Lactic Acid 0.8 (0.4-2.0) Calcium (8.4-10.2) mg/dL Magnesium (1.6-2.3) mg/dL Total Bilirubin (0.2-1.3) mg/dL AST (14-36) U/L ALT (0-35) U/L Alkaline Phosphatase (38-126) U/L Troponin I (0.000-0.034) ng/mL Serum Total Protein (6.3-8.2) g/dL Albumin (3.5-5.0) g/dL Lipase (23-300) U/L Urine Color STRAW (YELLOW) Urine Appearance CLEAR (CLEAR) Urine pH 8.0 (5-6) Ur Specific [place] 1.008 (1.005-1.025) Urine Protein NEGATIVE (Negative) Urine Ketones SMALL (NEGATIVE) Urine Blood NEGATIVE (0-5) Narendra/ul Urine Nitrite NEGATIVE (NEGATIVE) Urine Bilirubin NEGATIVE (NEGATIVE) Urine Urobilinogen NEGATIVE (0-1) mg/dL Ur Leukocyte Esterase NEGATIVE (NEGATIVE) Urine WBC (Auto) NONE (0-5) /HPF Urine RBC (Auto) NONE (0-2) /HPF U Epithel Cells (Auto) RARE (FEW) /HPF Urine Bacteria (Auto) NONE (NEGATIVE) /HPF Urine Culture Reflexed NO (NO) Urine Glucose 50 (NEGATIVE) mg/dL Salicylates (2-20) mg/dL Urine Opiates Level NEGATIVE (NEGATIVE) Ur Methadone NEGATIVE (NEGATIVE) Acetaminophen (10-30) ug/ml Urine Barbiturates NEGATIVE (NEGATIVE) Ur Phencyclidine (PCP) NEGATIVE (NEGATIVE) Urine Amphetamine NEGATIVE (NEGATIVE) U Benzodiazepine Level POSITIVE (NEGATIVE) Urine Cocaine NEGATIVE (NEGATIVE) Urine Marijuana (THC) POSITIVE (NEGATIVE) Ethyl Alcohol (0-10) mg/dL 05/01/20 05/01/20 05/01/20 Range/Units 02:15 02:15 02:15 WBC (4.0-10.5) K/mm3 RBC (4.1-5.4) M/mm3 Hgb (12.0-16.0) gm/dl Hct (35-47) % MCV (78-100) fl MCH (26-32) pg MCHC (32-36) g/dl RDW (11.5-14.0) % Plt Count (150-450) K/mm3 MPV (7.5-11.0) fl Gran % (36.0-66.0) % Eos # (Auto) (0-0.5) Absolute Lymphs (auto) (1.0-4.6) Absolute Monos (auto) (0.0-1.3) Lymphocytes % (24.0-44.0) % Monocytes % (0.0-12.0) % Eosinophils % (0.00-5.0) % Basophils % (0.0-0.4) % Absolute Granulocytes (1.4-6.9) Basophils # (0-0.4) PT 11.5 (9.95-12.35) SECONDS INR 1.02 (0.8-3.0) Sodium 135 L (137-145) mmol/L Potassium 4.1 (3.5-5.1) mmol/L Chloride 96 L (98-107) mmol/L Carbon Dioxide 29 (22-30) mmol/L Anion Gap 13.7 (5-15) MEQ/L BUN 7 (7-17) mg/dL Creatinine 0.62 (0.52-1.04) mg/dL Estimated GFR > 60.0 ML/MIN Glucose 119 H (74-106) mg/dL Lactic Acid (0.4-2.0) Calcium 9.4 (8.4-10.2) mg/dL Magnesium 2.0 (1.6-2.3) mg/dL Total Bilirubin 0.90 (0.2-1.3) mg/dL AST 53 H (14-36) U/L ALT 61 H (0-35) U/L Alkaline Phosphatase 102 (38-126) U/L Troponin I < 0.012 (0.000-0.034) ng/mL Serum Total Protein 7.0 (6.3-8.2) g/dL Albumin 4.2 (3.5-5.0) g/dL Lipase 215 (23-300) U/L Urine Color (YELLOW) Urine Appearance (CLEAR) Urine pH (5-6) Ur Specific [place] (1.005-1.025) Urine Protein (Negative) Urine Ketones (NEGATIVE) Urine Blood (0-5) Narendra/ul Urine Nitrite (NEGATIVE) Urine Bilirubin (NEGATIVE) Urine Urobilinogen (0-1) mg/dL Ur Leukocyte Esterase (NEGATIVE) Urine WBC (Auto) (0-5) /HPF Urine RBC (Auto) (0-2) /HPF U Epithel Cells (Auto) (FEW) /HPF Urine Bacteria (Auto) (NEGATIVE) /HPF Urine Culture Reflexed (NO) Urine Glucose (NEGATIVE) mg/dL Salicylates < 1.0 L (2-20) mg/dL Urine Opiates Level (NEGATIVE) Ur Methadone (NEGATIVE) Acetaminophen < 10 L (10-30) ug/ml Urine Barbiturates (NEGATIVE) Ur Phencyclidine (PCP) (NEGATIVE) Urine Amphetamine (NEGATIVE) U Benzodiazepine Level (NEGATIVE) Urine Cocaine (NEGATIVE) Urine Marijuana (THC) (NEGATIVE) Ethyl Alcohol < 10 (0-10) mg/dL 05/01/20 Range/Units 02:15 WBC 9.1 (4.0-10.5) K/mm3 RBC 5.08 (4.1-5.4) M/mm3 Hgb 15.2 (12.0-16.0) gm/dl Hct 45.7 (35-47) % MCV 90.0 (78-100) fl MCH 29.9 (26-32) pg MCHC 33.3 (32-36) g/dl RDW 12.9 (11.5-14.0) % Plt Count 316 (150-450) K/mm3 MPV 8.9 (7.5-11.0) fl Gran % 83.8 H (36.0-66.0) % Eos # (Auto) 0.01 (0-0.5) Absolute Lymphs (auto) 0.88 L (1.0-4.6) Absolute Monos (auto) 0.56 (0.0-1.3) Lymphocytes % 9.7 L (24.0-44.0) % Monocytes % 6.2 (0.0-12.0) % Eosinophils % 0.1 (0.00-5.0) % Basophils % 0.2 (0.0-0.4) % Absolute Granulocytes 7.61 H (1.4-6.9) Basophils # 0.02 (0-0.4) PT (9.95-12.35) SECONDS INR (0.8-3.0) Sodium (137-145) mmol/L Potassium (3.5-5.1) mmol/L Chloride (98-107) mmol/L Carbon Dioxide (22-30) mmol/L Anion Gap (5-15) MEQ/L BUN (7-17) mg/dL Creatinine (0.52-1.04) mg/dL Estimated GFR ML/MIN Glucose (74-106) mg/dL Lactic Acid (0.4-2.0) Calcium (8.4-10.2) mg/dL Magnesium (1.6-2.3) mg/dL Total Bilirubin (0.2-1.3) mg/dL AST (14-36) U/L ALT (0-35) U/L Alkaline Phosphatase (38-126) U/L Troponin I (0.000-0.034) ng/mL Serum Total Protein (6.3-8.2) g/dL Albumin (3.5-5.0) g/dL Lipase (23-300) U/L Urine Color (YELLOW) Urine Appearance (CLEAR) Urine pH (5-6) Ur Specific [place] (1.005-1.025) Urine Protein (Negative) Urine Ketones (NEGATIVE) Urine Blood (0-5) Narendra/ul Urine Nitrite (NEGATIVE) Urine Bilirubin (NEGATIVE) Urine Urobilinogen (0-1) mg/dL Ur Leukocyte Esterase (NEGATIVE) Urine WBC (Auto) (0-5) /HPF Urine RBC (Auto) (0-2) /HPF U Epithel Cells (Auto) (FEW) /HPF Urine Bacteria (Auto) (NEGATIVE) /HPF Urine Culture Reflexed (NO) Urine Glucose (NEGATIVE) mg/dL Salicylates (2-20) mg/dL Urine Opiates Level (NEGATIVE) Ur Methadone (NEGATIVE) Acetaminophen (10-30) ug/ml Urine Barbiturates (NEGATIVE) Ur Phencyclidine (PCP) (NEGATIVE) Urine Amphetamine (NEGATIVE) U Benzodiazepine Level (NEGATIVE) Urine Cocaine (NEGATIVE) Urine Marijuana (THC) (NEGATIVE) Ethyl Alcohol (0-10) mg/dL - Progress Progress: improved, re-examined Progress Note: 05/01/20 05:48 54 years old is evaluated in the ER for confusion and possible alcohol abuse. Patient is awake alert and a little confused at present pictured but in the ER she is improved and is back to normal. She is not confused anymore on reevaluation. Patient reports she was very sad and wanted to by taking herself off of oxygen. She does have areas of hopelessness/helplessness. She denies any drug use/overdose. Medical work-up including CT head neck is negative for any acute findings. She is medically clear. I believe patient has depression and anxiety with suicidal ideation and would be transferred to psych facility which patient is agreeable to go there voluntarily. 05/01/20 06:37 Patient has been accepted at [facility] by Dr. Vivar. Counseled pt/family regarding: drug and/or alcohol abuse, lab results, diagnosis , rad results, smoking cessation - Departure Departure Disposition: Transfer Clinical Impression: Confusion, Depression with suicidal ideation Condition: Stable Critical Care Time: Yes Critical Care Time(excluding separately billable procedures): Critical 30-74 mins Referrals: GUALBERTO KOHLER [Primary Care Provider] -
[2020-05-01 02:27] LABS: Absolute Neutrophil Ct (ANC) 7.61 (1.4-6.9); BASOPHIL % 0.2 % (0.0-0.4); Basophil (Absolute #) 0.02 (0-0.4); Eosinophil % 0.1 % (0.00-5.0); Eosinophil (Absolute #) 0.01 (0-0.5); Hematocrit 45.7 % (35-47); Hemoglobin 15.2 gm/dl (12.0-16.0); Lymphocyte (Absolute #) 0.88 (1.0-4.6); Lymphocytes % 9.7 % (24.0-44.0); Mean Corpuscular Hemoglobin 29.9 pg (26-32); Mean Corpuscular Hgb Concent. 33.3 g/dl (32-36); Mean Platelet Volume 8.9 fl (7.5-11.0); Monocyte (Absolute #) 0.56 (0.0-1.3); Monocytes % 6.2 % (0.0-12.0); Neutrophil % 83.8 % (36.0-66.0); Platelet Count 316 K/mm3 (150-450); Red Blood Count 5.08 M/mm3 (4.1-5.4); Red Cell Distribution Width 12.9 % (11.5-14.0); White Blood Count 9.1 K/mm3 (4.0-10.5)
[2020-05-01 02:42] LABS: INR 1.02 (0.8-3.0); PROTIME 11.5 SECONDS (9.95-12.35)
[2020-05-01 02:47] LABS: ALBUMIN 4.2 g/dL (3.5-5.0); ALKALINE PHOSPHATASE 102 U/L (38-126); ANION GAP 13.7 MEQ/L (5-15); BLOOD UREA NITROGEN 7 mg/dL (7-17); CHLORIDE 96 mmol/L (98-107); Calcium 9.4 mg/dL (8.4-10.2); Carbon Dioxide 29 mmol/L (22-30); Creatinine 1 0.62 mg/dL (0.52-1.04); Glucose 119 mg/dL (74-106); LIPASE 215 U/L (23-300); Potassium 4.1 mmol/L (3.5-5.1); SGOT/AST 53 U/L (14-36); SGPT/ALT 61 U/L (0-35); SODIUM 135 mmol/L (137-145)
[2020-05-01 02:48] LABS: ACETAMINOPHEN < 10 ug/ml (10-30); ETHYL ALCOHOL < 10 mg/dL (0-10); SALICYLATE < 1.0 mg/dL (2-20)
[2020-05-01 04:16] LABS: Appearance CLEAR (CLEAR); Bilirubin NEGATIVE (NEGATIVE); Blood NEGATIVE Ery/ul (0-5); Epithelial Cells RARE /HPF (FEW); Glucose 50 mg/dL (NEGATIVE); Ketones SMALL (NEGATIVE); Leukocyte Esterase NEGATIVE (NEGATIVE); Nitrite NEGATIVE (NEGATIVE); Protein,Urine Dip NEGATIVE (Negative); Specific Gravity 1.008 (1.005-1.025); Urobilinogen NEGATIVE mg/dL (0-1)
[2020-05-01 04:22] LABS: Amphetamine,Urine NEGATIVE (NEGATIVE); Benzodiazepine,Urine POSITIVE (NEGATIVE); Cocaine,Urine NEGATIVE (NEGATIVE); Methadone,Urine NEGATIVE (NEGATIVE); Opiate,Urine NEGATIVE (NEGATIVE); PCP,Urine NEGATIVE (NEGATIVE); THC,Urine POSITIVE (NEGATIVE)
[2020-05-01 04:27] LABS: Barbiturate,Urine NEGATIVE (NEGATIVE)
--- NOTE | 2020-05-01 07:14 | XRAY ---
Indication: Confusion. Stroke. No known injury. Multiple contiguous axial images obtained through the head without contrast. Comparison: April 27, 2020. Previous left external capsule remote lacunar infarct appears to be artifactual due to volume averaging with a sulcus. Again no acute intracranial hemorrhage, abnormal extra-axial fluid collection, or mass effect. Fourth ventricle is midline without hydrocephalus. Haridng-white matter differentiation preserved. Bony calvarium intact. Visualized paranasal sinuses and mastoid air cells are clear. Impression: Stable negative CT head without contrast exam. Comment: Preliminary interpretation was made by [facility]. No critical discrepancy.
--- NOTE | 2020-05-01 07:15 | XRAY ---
Indication: Confusion. Comparison: April 27, 2020. Portable chest unchanged again hyperinflated and clear. Heart and mediastinal structures within normal limits. No new/acute findings.
[2020-05-01 07:24] VITALS: BP 101/68; PULSE 63; O2SAT 99
== END 2020-05-01 08:10 | disposition short-term general hospital (02) ==
LOC: ED 01:43
DX: R41.0 Disorientation, unspecified (principal); F32.9 Major depressive disorder, single episode, unspecified; R45.851 Suicidal ideations
CPT/HCPCS: 70450; 80053; 80307; 81001; 83605; 83690; 83735; 84484; 85025; 85610; 87040; 93005; 93041; 96360; 96374; 99291; G0480; G0481; 36000; 36415; 71045; 99285; J2405

== ENCOUNTER 2021-02-06 00:47 | Emergency (ER) | payer MEDICARE ==
[2021-02-06] MEDS ORDERED: Ativan 1 MG PO ONE (00:53)
[2021-02-06] MEDS ORDERED: Sodium Chloride 0.9% 1000 ML 1,000 ML IV SCH (01:00)
--- NOTE | 2021-02-06 01:08 | ERPHSYRPT ---
- History of Present Illness Time Seen by Provider: 02/06/21 01:03 Source: patient, EMS Exam Limitations: no limitations Physician History: pt is known copd pt with onset sobreath in similar path today, and is now more comfortable after initial resp tx in ambulance. no cp but will check cardiac due to risk factors and sobreath symptoms. no fever, cough worsening as with COPD exacerbation. Timing/Duration: today Activities at Onset: rest Severity of Dyspnea-Max: moderate Severity of Dyspnea-Current: moderate Possible Cause: frequent episodes, chronic episodes Modifying Factors: Improves With: albuterol nebulizer, oxygen, rest Associated Symptoms: cough, wheezing Allergies/Adverse Reactions: morphine Allergy (Intermediate, Verified 02/06/21 01:08) Hives prednisone Adverse Reaction (Intermediate, Verified 02/06/21 01:08) pt states psychitic episodes with prednisone tramadol Adverse Reaction (Intermediate, Verified 02/06/21 01:08) Med interaction with prozac Home Medications: Levothyroxine Sodium 25 Mcg [Synthroid 25 Mcg] 25 mcg PO 0600 02/01/16 [History] Omeprazole 40 mg PO DAILY 02/01/16 [History] Alprazolam 1 mg [Xanax 1 mg] 1 mg PO Q8H 03/28/18 [History] Simvastatin 40 mg PO HS 02/10/20 [History] Fluoxetine HCl [Prozac] 80 mg PO DAILY 04/27/20 [History] Fluticasone/Umeclidin/Vilanter [Trelegy Ellipta 100-62.5-25] 1 tab IH DAILY 04/27/20 [History] Ipratropium/Albuterol Sulfate [Iprat-Albut 0.5-3(2.5) mg/3 ml] 1 vial IH QID 04/27/20 [History] Prednisone 20 mg [Deltasone 20 mg] 20 mg PO DAILY 04/27/20 [History] Hx Tetanus, Diphtheria Vaccination/Date Given: Yes Hx Influenza Vaccination/Date Given: Yes Hx Pneumococcal Vaccination/Date Given: Yes - Review of Systems Constitutional: No Fever, No Chills Eyes: No Symptoms Ears, Nose, & Throat: No Symptoms Respiratory: Cough, Dyspnea, Dyspnea on Exertion ([place]) Cardiac: No Chest Pain, No Edema, No Syncope Abdominal/Gastrointestinal: No Abdominal Pain, No Nausea, No Vomiting, No Diarrhea Genitourinary Symptoms: No Dysuria Musculoskeletal: No Back Pain, No Neck Pain Skin: No Rash Neurological: No Dizziness, No Focal Weakness, No Sensory Changes Psychological: No Symptoms Endocrine: No Symptoms Hematologic/Lymphatic: No Symptoms Immunological/Allergic: No Symptoms All Other Systems: Reviewed and Negative - Past Medical History Pertinent Past Medical History: Yes Neurological History: Seizures, Other ENT History: Other Cardiac History: No Pertinent History Respiratory History: COPD Endocrine Medical History: Hypothyroidism Musculoskeletal History: Osteoarthritis, Other GI Medical History: Gallbladder Disease, Hemorrhoids History: No Pertinent History Psycho-Social History: Anxiety, Depression, Panic Disorder Female Reproductive Disorders: Cervical Cancer, Vaginal Cancer Other Medical History: SEROTONIN SYNDROME HX; HYSTERECTOMY, PARTIAL VULVECTOMY D/T CERVICAL CA; R KNEE 'SCOPE, R WRIST SX; SPINAL ; PT. USES 2L O2 ART NIGHT AND DURING THE DAY PRN. - Past Surgical History Past Surgical History: Yes Neuro Surgical History: No Pertinent History Cardiac: No Pertinent History Respiratory: No Pertinent History Gastrointestinal: Cholecystectomy Genitourinary: No Pertinent History Musculoskeletal: Orthopedic Surgery Female Surgical History: Hysterectomy, Dilation & Curettage, Other Other Surgical History: partial vulvectomy , rt hand surgery, epidural for back pain cerviacl cancer-removed around cervix,rt knee surgery - Social History Smoking Status: Former smoker How long have you smoked: 30 years Exposure to second hand smoke: Yes Drug Use: none Patient Lives Alone: Yes - Nursing Vital Signs Nursing Vital Signs: Initial Vital Signs Temperature 97.7 F 02/06/21 00:52 Pulse Rate 106 H 02/06/21 00:52 Respiratory Rate 24 02/06/21 00:52 Blood Pressure 153/94 02/06/21 00:52 O2 Sat by Pulse Oximetry 98 02/06/21 00:52 Pain Scale Pain Intensity 0 - Physical Exam General Appearance: no apparent distress, alert Eye Exam: PERRL/EOMI Neck Exam: normal inspection, supple Respiratory Exam: airway intact, rhonchi, No accessory muscle use Cardiovascular/Chest Exam: normal heart sounds, regular rate/rhythm Abdominal/Gastrointestinal Exam: soft, No tenderness, No distention, No mass Rectal Exam: deferred Extremity Exam: non-tender, normal range of motion, normal inspection, no calf tenderness, no pedal edema Peripheral Pulses Exam: carotid (R): 2+, carotid (L): 2+, femoral (R): 2+, femoral (L): 2+, dorsalis-pedis (R): 2+, dorsalis-pedis (L): 2+ Neurologic Exam: alert, oriented x 3, cooperative, support architect II-XII nml as tested, sensation nml, No motor deficits Skin Exam: normal color, warm, No dry SpO2 Interpretation: normal O2 Delivery: Room Air - Course Nursing assessment & vital signs reviewed: Yes EKG Interpreted by Me: Sinus Tach, Left King[place] Deviation, LAFB, prolonged QT interval, Non-specific ST Changes - Radiology Exams Chest X-ray Interpretation: Reviewed by me, No Pneumonia, No Pneumothorax, Other (traction scarring , COPD , anterior nodule) Ordered Tests: Active Orders 24 hr Category Date Time Status Division Service Manager STAT Care 02/06/21 00:57 Active EKG-ER Only STAT Care 02/06/21 00:53 Active IV Insertion STAT Care 02/06/21 00:53 Active Pulse Oximetry (ED) STAT Care 02/06/21 00:53 Active CHEST 2 VIEWS (PA AND LAT) Stat Exams 02/06/21 00:56 Taken CBC W DIFF Stat Lab 02/06/21 01:25 Completed CMP Stat Lab 02/06/21 01:25 Completed D-DIMER QUANTITATIVE Stat Lab 02/06/21 01:25 Completed HCG QUALITATIVE,SERUM Stat Lab 02/06/21 01:25 Completed Lactic Acid Stat Lab 02/06/21 01:30 Completed NT PRO BNP Stat Lab 02/06/21 01:25 Completed T4 (Thyroxine) Stat Lab 02/06/21 01:25 Completed TROPONIN Q3H Lab 02/06/21 01:00 Completed TROPONIN Q3H Lab 02/06/21 05:00 Ordered TROPONIN Q3H Lab 02/06/21 08:00 Ordered TROPONIN Q3H Lab 02/06/21 11:00 Ordered TROPONIN Q3H Lab 02/06/21 14:00 Ordered TSH [TSH, 3RD Generation] Stat Lab 02/06/21 01:25 Completed UA W/RFX UR CULTURE Stat Lab 02/06/21 00:54 Ordered Medication Summary Generic Name Dose Route Start Last Admin Trade Name Freq PRN Reason Stop Dose Admin Sodium Chloride 1,000 mls @ 100 mls/hr 02/06/21 01:00 02/06/21 01:33 Sodium Chloride 0.9% 1000 Ml IV 03/08/21 00:59 100 mls/hr .Q10H BREA Administration Discontinued Medications Generic Name Dose Route Start Last Admin Trade Name Ute PRN Reason Stop Dose Admin Azithromycin 500 mg in 250 mls @ 250 mls/hr 02/06/21 01:09 02/06/21 01:33 Zithromax 500 Mg/ 250 Ml Nacl Premix IV 02/06/21 03:08 250 ml/hr STAT STA 250 mls/hr Administration Azithromycin Confirm 02/06/21 01:29 Zithromax 500 Mg/ 250 Ml Nacl Premix Administered 02/06/21 01:30 Dose 500 mg in 250 mls @ ud IV .STK-MED ONE Lorazepam 1 mg 02/06/21 00:53 02/06/21 01:32 Ativan 1 Mg PO 02/06/21 00:54 1 mg STAT ONE Administration Lorazepam Confirm 02/06/21 01:28 Ativan 1 Mg Administered 02/06/21 01:29 Dose 1 mg .ROUTE .STK-MED ONE Lab/Rad Data: Laboratory Result Diagrams 02/06/21 01:25 02/06/21 01:25 Laboratory Results 02/06/21 02/06/21 02/06/21 Range/Units 01:30 01:25 01:25 WBC (4.0-10.5) K/mm3 RBC (4.1-5.4) M/mm3 Hgb (12.0-16.0) gm/dl Hct (35-47) % MCV (78-100) fl MCH (26-32) pg MCHC (32-36) g/dl RDW (11.5-14.0) % Plt Count (150-450) K/mm3 MPV (7.5-11.0) fl Gran % (36.0-66.0) % Eos # (Auto) (0-0.5) Absolute Lymphs (auto) (1.0-4.6) Absolute Monos (auto) (0.0-1.3) Lymphocytes % (24.0-44.0) % Monocytes % (0.0-12.0) % Eosinophils % (0.00-5.0) % Basophils % (0.0-0.4) % Absolute Granulocytes (1.4-6.9) Basophils # (0-0.4) D-Dimer (215-500) ng/mL Sodium (137-145) mmol/L Potassium (3.5-5.1) mmol/L Chloride (98-107) mmol/L Carbon Dioxide (22-30) mmol/L Anion Gap (5-15) MEQ/L BUN (7-17) mg/dL Creatinine (0.52-1.04) mg/dL Estimated GFR ML/MIN Glucose (74-106) mg/dL Lactic Acid 1.3 (0.4-2.0) Calcium (8.4-10.2) mg/dL Total Bilirubin (0.2-1.3) mg/dL AST (14-36) U/L ALT (0-35) U/L Alkaline Phosphatase (38-126) U/L Troponin I (0.000-0.034) ng/mL NT-Pro-B Natriuret Pep (0-900) pg/mL Serum Total Protein (6.3-8.2) g/dL Albumin (3.5-5.0) g/dL Thyroxine (T4) 8.39 (5.53-10.96) ug/dL TSH 3rd Generation 10.700 H (0.47-4.68) mIU/L Serum , Qual (Negative) 02/06/21 02/06/21 02/06/21 Range/Units 01:25 01:25 01:25 WBC (4.0-10.5) K/mm3 RBC (4.1-5.4) M/mm3 Hgb (12.0-16.0) gm/dl Hct (35-47) % MCV (78-100) fl MCH (26-32) pg MCHC (32-36) g/dl RDW (11.5-14.0) % Plt Count (150-450) K/mm3 MPV (7.5-11.0) fl Gran % (36.0-66.0) % Eos # (Auto) (0-0.5) Absolute Lymphs (auto) (1.0-4.6) Absolute Monos (auto) (0.0-1.3) Lymphocytes % (24.0-44.0) % Monocytes % (0.0-12.0) % Eosinophils % (0.00-5.0) % Basophils % (0.0-0.4) % Absolute Granulocytes (1.4-6.9) Basophils # (0-0.4) D-Dimer < 215 L (215-500) ng/mL Sodium 138 (137-145) mmol/L Potassium 3.7 (3.5-5.1) mmol/L Chloride 98 (98-107) mmol/L Carbon Dioxide 34 H (22-30) mmol/L Anion Gap 9.4 (5-15) MEQ/L BUN 3 L (7-17) mg/dL Creatinine 0.58 (0.52-1.04) mg/dL Estimated GFR > 60.0 ML/MIN Glucose 118 H (74-106) mg/dL Lactic Acid (0.4-2.0) Calcium 9.2 (8.4-10.2) mg/dL Total Bilirubin 0.30 (0.2-1.3) mg/dL AST 30 (14-36) U/L ALT 14 (0-35) U/L Alkaline Phosphatase 92 (38-126) U/L Troponin I (0.000-0.034) ng/mL NT-Pro-B Natriuret Pep 70.7 (0-900) pg/mL Serum Total Protein 7.2 (6.3-8.2) g/dL Albumin 4.4 (3.5-5.0) g/dL Thyroxine (T4) (5.53-10.96) ug/dL TSH 3rd Generation (0.47-4.68) mIU/L Serum , Qual NEGATIVE (Negative) 02/06/21 02/06/21 Range/Units 01:25 01:00 WBC 5.6 (4.0-10.5) K/mm3 RBC 4.62 (4.1-5.4) M/mm3 Hgb 13.7 (12.0-16.0) gm/dl Hct 42.0 (35-47) % MCV 90.9 (78-100) fl MCH 29.7 (26-32) pg MCHC 32.6 (32-36) g/dl RDW 12.3 (11.5-14.0) % Plt Count 289 (150-450) K/mm3 MPV 8.8 (7.5-11.0) fl Gran % 61.7 (36.0-66.0) % Eos # (Auto) 0.32 (0-0.5) Absolute Lymphs (auto) 1.40 (1.0-4.6) Absolute Monos (auto) 0.42 (0.0-1.3) Lymphocytes % 24.9 (24.0-44.0) % Monocytes % 7.5 (0.0-12.0) % Eosinophils % 5.7 H (0.00-5.0) % Basophils % 0.2 (0.0-0.4) % Absolute Granulocytes 3.48 (1.4-6.9) Basophils # 0.01 (0-0.4) D-Dimer (215-500) ng/mL Sodium (137-145) mmol/L Potassium (3.5-5.1) mmol/L Chloride (98-107) mmol/L Carbon Dioxide (22-30) mmol/L Anion Gap (5-15) MEQ/L BUN (7-17) mg/dL Creatinine (0.52-1.04) mg/dL Estimated GFR ML/MIN Glucose (74-106) mg/dL Lactic Acid (0.4-2.0) Calcium (8.4-10.2) mg/dL Total Bilirubin (0.2-1.3) mg/dL AST (14-36) U/L ALT (0-35) U/L Alkaline Phosphatase (38-126) U/L Troponin I < 0.012 (0.000-0.034) ng/mL NT-Pro-B Natriuret Pep (0-900) pg/mL Serum Total Protein (6.3-8.2) g/dL Albumin (3.5-5.0) g/dL Thyroxine (T4) (5.53-10.96) ug/dL TSH 3rd Generation (0.47-4.68) mIU/L Serum , Qual (Negative) - Progress Progress: improved, re-examined Air Movement: good Progress Note: 02/06/21 01:43 pt reports that she cannot take steroids at home due to mental health side effects. 02/06/21 05:05 pt feels much better after treatments and we discussed the limitations of testing performed and that undetected pathology could still be evolving including cardiac and resp or other with risks of progression including . She understands and chooses DC with outpt f/u with PCP rather than further w/u in hosp or ER at this time. we will start ab for exacerbation of copd and test for covid and she will she PCP sunday and return meantime if symptoms recur - she is on home O2. Blood Culture(s) Obtained: No Antibiotics given: Yes Counseled pt/family regarding: lab results, diagnosis, need for follow-up, rad results - Departure Departure Disposition: Home Clinical Impression: COPD with exacerbation, anterior lung nodule, Person under investigation for COVID-19 Condition: Good Critical Care Time: No Referrals: GUALBERTO KOHLER [Primary Care Provider] - Instructions: Chronic Obstructive Pulmonary Disease, Shortness of Breath (Dyspnea) (DC), Exacerbation of COPD (DC), Pulmonary Nodule, Coronavirus Disease 2019 (COVID-19) (DC) Additional Instructions: see your Dr sunday or early this week to continue workup including respiratory, lung nodule, thyroid and covid result; return meantime if not improving or symptoms of concern. Prescriptions: Amox Tr/Potass Clav. 875 mg [Augmentin 875-125 Tablet] 875 mg PO BID #20 tablet
[2021-02-06] MEDS ORDERED: Zithromax 500 MG/ 250 ML NaCl Premix 500 MG/250 ML IVPB IV STA (01:09)
[2021-02-06] MEDS ORDERED: Ativan 1 MG ONE (01:28)
[2021-02-06] MEDS ORDERED: Zithromax 500 MG/ 250 ML NaCl Premix 500 MG/250 ML IVPB IV ONE (01:29)
[2021-02-06] MEDS ORDERED: Sodium Chloride 0.9% 1000 ML 1,000 ML ONE (01:29)
[2021-02-06 01:39] LABS: Absolute Neutrophil Ct (ANC) 3.48 (1.4-6.9); BASOPHIL % 0.2 % (0.0-0.4); Basophil (Absolute #) 0.01 (0-0.4); Eosinophil % 5.7 % (0.00-5.0); Eosinophil (Absolute #) 0.32 (0-0.5); Hemoglobin 13.7 gm/dl (12.0-16.0); Lymphocytes % 24.9 % (24.0-44.0); Mean Cell Volume 90.9 fl (78-100); Mean Corpuscular Hemoglobin 29.7 pg (26-32); Mean Corpuscular Hgb Concent. 32.6 g/dl (32-36); Mean Platelet Volume 8.8 fl (7.5-11.0); Monocyte (Absolute #) 0.42 (0.0-1.3); Monocytes % 7.5 % (0.0-12.0); Neutrophil % 61.7 % (36.0-66.0); Platelet Count 289 K/mm3 (150-450); Red Blood Count 4.62 M/mm3 (4.1-5.4); Red Cell Distribution Width 12.3 % (11.5-14.0); White Blood Count 5.6 K/mm3 (4.0-10.5)
[2021-02-06 01:47] LABS: ALBUMIN 4.4 g/dL (3.5-5.0); ALKALINE PHOSPHATASE 92 U/L (38-126); ANION GAP 9.4 MEQ/L (5-15); BLOOD UREA NITROGEN 3 mg/dL (7-17); CHLORIDE 98 mmol/L (98-107); Calcium 9.2 mg/dL (8.4-10.2); Carbon Dioxide 34 mmol/L (22-30); Creatinine 1 0.58 mg/dL (0.52-1.04); EST GLOMERULAR FILTRATION RATE > 60.0 ML/MIN; Glucose 118 mg/dL (74-106); Potassium 3.7 mmol/L (3.5-5.1); SGOT/AST 30 U/L (14-36); SGPT/ALT 14 U/L (0-35); SODIUM 138 mmol/L (137-145); Total Protein 7.2 g/dL (6.3-8.2)
[2021-02-06 01:58] LABS: NT PRO BNP 70.7 pg/mL (0-900)
[2021-02-06 06:06] VITALS: BP 104/67; PULSE 86; O2SAT 99
--- NOTE | 2021-02-06 07:59 | XRAY ---
Indication: Short of breath. Comparison: May 01, 2020. PA/lateral chest again demonstrates COPD with a few incidental calcified granulomas. No focal infiltrate, consolidation, or large effusion. Heart and mediastinal structures within normal limits. Bony thorax intact with minimal degenerative changes. Impression: Continued nonacute chest with chronic features.
== END 2021-02-06 06:00 | disposition home or self-care (01) ==
LOC: ED 00:47
DX: J44.1 Chronic obstructive pulmonary disease with (acute) exacerbation (principal); R91.1 Solitary pulmonary nodule; Z20.822 Contact with and (suspected) exposure to COVID-19; Z79.899 Other long term (current) drug therapy
CPT/HCPCS: 36000; 36415; 71046; 80053; 81025; 83605; 83880; 84436; 84443; 84484; 85025; 85379; 93005; 93041; 94760; 96365; 96366; 99284; U0003; J0456; A9270-GY